=== PATIENT | female | born 1965 | race Caucasian/White ===

== ENCOUNTER 2023-04-25 09:12 | Outpatient (OUT) | payer OTHER, SELFPAY ==
[2023-04-25 10:09] LABS: Basophils Absolute Auto 0.1 10^3/uL (0.0-0.1); Basophils Percent Auto 1.1 % (0.2-2.0); Eosinophils Absolute Auto 0.5 10^3/uL (0.0-0.7); Eosinophils Percent Auto 5.6 % (0.9-7.0); Hematocrit 45.5 % (36.0-48.0); Immature Granulocytes Abs Auto 0.02 10^3/uL (0.00-0.03); Immature Granulocytes Pct Auto 0.2 % (0.0-0.5); Lymphocytes Percent Auto 10.7 % (20.5-60.0); Mean Corpuscular Hemoglobin 28.4 pg (26.7-34.0); Mean Corpuscular Volume 86.2 fL (81.0-99.0); Mean Platelet Volume 10.2 fL (9.5-13.5); Monocytes Absolute Auto 0.7 10^3/uL (0.3-0.8); Monocytes Percent Auto 6.9 % (1.7-12.0); Neutrophils Absolute Auto 7.1 10^3/uL (1.4-6.5); Neutrophils Percent Auto 75.5 % (43.0-75.0); Platelet Count 189 10^3/uL (150-450); Red Blood Count 5.28 10^6/uL (4.20-5.40); Red Cell Distribution Width 12.5 % (11.0-15.0); White Blood Count 9.4 10^3/uL (4.0-11.0)
[2023-04-25 10:53] LABS: Estimated Average Glucose 114 mg/dL; Glycohemoglobin A1C 5.6 % (4.5-6.2)
[2023-04-25 12:24] LABS: Anion Gap 10.3; Carbon Dioxide 28.4 mmol/L (21.0-32.0); Chloride 104 mmol/L (98-107); Estimated GFR (African America >60 (>=60); Glucose 94 mg/dL (74-106); Potassium 3.7 mmol/L (3.5-5.1); Sodium 139 mmol/L (136-145)
[2023-04-25 12:25] LABS: Alanine Aminotransferase 33 U/L (14-59); Albumin Level 3.9 g/dL (3.4-5.0); Alkaline Phosphatase 77 U/L (46-116); Aspartate Amino Transferase 21 U/L (15-37); BUN Creatinine Ratio 27.2; Bilirubin Total 0.9 mg/dL (0.2-1.0); Calcium 9.8 mg/dL (8.5-10.1); Chol HDL Ratio 3.3; Cholesterol 236 mg/dL (<=200); Estimated GFR (Non-African Ame >60 (>=60); Free T3 3.21 pg/mL (2.18-3.98); Globulin 3.8 g/dL; HDL Cholesterol 71 mg/dL (40-60); Thyroid Stimulating Hormone 0.784 uIU/mL (0.358-3.740); Total Protein 7.7 g/dL (6.4-8.2); Triglycerides 94 mg/dL (<=150); VLDL CHOLESTEROL 18.8 mg/dL
[2023-04-26 11:47] LABS: Occult Blood Negative
[2023-04-27 14:08] LABS: Insulin 11.6 uIU/mL (2.6-24.9)
== END 2023-04-25 09:13 | disposition home or self-care (01) ==
LOC: LAB 09:18
PROVIDERS: PCP Family Medicine; Visit Provider Family Medicine
DX: Z00.00 Encounter for general adult medical examination without abnormal findings (principal); E78.5 Hyperlipidemia, unspecified; R73.09 Other abnormal glucose; Z12.12 Encounter for screening for malignant neoplasm of rectum
CPT/HCPCS: 36415; 80053; 80061; 83036; 83525; 84436; 84443; 84481; 85025; G0328

== ENCOUNTER 2023-05-02 11:14 | Outpatient (OUT) | payer OTHER, SELFPAY ==
--- OUTSIDE RECORDS SUMMARY | 2023-05-02 11:17 | XMS_ITS | CCD ---
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 she cannot bear it. Plan: Oxycodone 5mg q6h. Lidocaine patch. Dilaudid PRN? DVT (deep venous thrombosis) 12/23/201302/2016 Overview: DVT present in the right arm involving the: 12/04 : basilic and right axillary vein. 12/22 scan: complete occlusion of the brachial vein. Pain and swelling improving Plan: Per neurosurgery rec, okay to anticoagulate. Will need anticoagulation for 3 months. Coumadin at 5 currently. INR therapeutic. Anxious appearance 12/23/2013 11/30/2015 Cerebral aneurysm 12/23/2013 11/30/2015 Overview: balloon assisted Acomm coiling 10/13 Lipoma 12/23/2013 11/30/2015 Overview: Assesment : Lipoma present on the right shoulder. [place] sized last year and has grown to the size of a lemon. Not tender. Unable to assess if mobile or not due to pain and tenderness. Plan: Will follow up for biopsy at a later date. SAH (subarachnoid hemorrhage) 12/23/2013 Overview: OSH records: Multiple small SAH noted along the R high cortical region scattered along Sylvian Cistern and prepontine cistern. Dilantin 1g was given as a loading dose f/b 100mg bid. Plan: CT brain at [facility] - no acute bleed Awaiting OSH records Acute thrombosis of right axillary vein 12/24/19 14 11/30/2015 Acute thrombosis of right brachial vein 12/24/19 14 11/30/2015 documented as of this encounter (statuses as of 08/24/2021) [facility] Evaluation note Note Date & Type Note Facility Evaluation note Diagnosis Status post reverse arthroplasty of right shoulder- Primary Rotator cuff tendinitis, left Impingement syndrome of left shoulder Other affections of shoulder region, not elsewhere classified documented in this encounter [facility] Advance Directives No Advanced Directives Records FoundDocuments on File Type Date 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 Advance Directive(s) 11/16/2015 9:27 AM Summary Purpose Family History No Family History Records FoundNo Family History Records Found Additional Source Comments Source Comments (unrecognize d section and content) In the event this informatio n is protected by the Federal Confidentiality of Alcohol and Drug Abuse Patient Records regulations: The Federal rules restrict any use of the information to criminally investigate or prosecute any alcohol or drug abuse patient.[facility] Reason for Visit (unrecogniz ed section and content) Reason Comments Established Patient Follow Up Care Teams (unrecognized sec tion and content) Motor 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 This clinical summary was aggregated from multiple sources. Caution should be exercised in using it in the provision of clinical care. This summary normalizes information from multiple sources, and as a consequence, information in this document may materially change the coding, format and clinical context of patient data. In addition, data may be omitted in some cases. CLINICAL DECISIONS SHOULD BE BASED ON THE PRIMARY CLINICAL RECORDS. [facility] [employer] [facility]. provides no warranty or guarantee of the accuracy or completeness of information in this document.
--- NOTE | 2023-05-02 11:50 | MM_ITS ---
Patient Name: JEVON ONEL MR#: [id number] : 1965 Exam Date: 05/02/2023 Ordering Doctor: DR Roberto Hess . RADIOLOGY REPORT PROCEDURE: MM TOMOSYNTHESIS SCREENING BI COMPARISON: MAMMO SCREEN DIG ERICA, 08/23/2010. MAMMO LT UNI DIG, 08/27/2010. MAMMO LT UNI DIG, 04/10/2011. INDICATIONS: Screening Calculator Name NCI Breast Cancer Risk Assessment Tool 5 Year Breast Cancer Risk 1.40% Lifetime Breast Cancer Risk 7.40% Personal Breast Cancer No Personal Ovarian Cancer No Treatments None Family Cancers None LOCATION: [facility] BREAST COMPOSITION: Heterogeneously dense,which may obscure small masses. FINDINGS: DIAGNOSTIC CATEGORY 0--INCOMPLETE: NEED ADDITIONAL IMAGING EVALUATION. Interval reduction in breast density, likely age related change. RIGHT BREAST: Single round 6 mm nodule upper outer quadrant, anterior to mid breast. Spot imaging and ultrasound follow-up recommended. LEFT BREAST: 2 micro clip markers upper-outer quadrant, stable. Lobular nodule associated with 1 clip measuring 1.4 x 1.1 cm, this appears increased from the prior exam. Additional nodule lower inner quadrant measuring 1.2 x 0.9 cm, anterior breast. Spot compression and ultrasound of both nodules is recommended. RECOMMENDATIONS: ADDITIONAL MAMMOGRAPHIC VIEWS REQUIRED: BILATERAL BREASTS - spot compression of suspicious non ULTRASOUND: BILATERAL BREASTS PLEASE NOTE: A NORMAL MAMMOGRAM DOES NOT EXCLUDE THE POSSIBILITY OF BREAST CANCER. A CLINICALLY SUSPICIOUS PALPABLE LUMP SHOULD BE BIOPSIED. Dictated by: Dillan Brito MD on 05/02/2023 at 12:20 Approved by: Dillan Brito MD on 05/02/2023 at 12:24
== END 2023-05-02 11:15 | disposition home or self-care (01) ==
LOC: MAMMO 11:14
PROVIDERS: PCP Family Medicine; Visit Provider Family Medicine
DX: Z12.31 Encounter for screening mammogram for malignant neoplasm of breast (principal); N63.11 Unspecified lump in the right breast, upper outer quadrant; N63.24 Unspecified lump in the left breast, lower inner quadrant
CPT/HCPCS: 77063; 77067

== ENCOUNTER 2023-05-16 07:48 | Outpatient (OUT) | payer OTHER, SELFPAY ==
--- NOTE | 2023-05-16 07:51 | US_ITS ---
Patient Name: JEVON NOEL MR#: [id number] : 1965 Exam Date: 05/16/2023 Ordering Doctor: DR Roberto Hess . RADIOLOGY REPORT PROCEDURE: MM DIAGNOSTIC MAMMO BI, 05/16/2023, 07:52 US BREAST BI LIMITED, 05/16/2023, 08:08 COMPARISON: MM TOMOSYNTHESIS SCREENING BI, 05/02/2023. INDICATIONS: Abnormal Mammogram Calculator Name NCI Breast Cancer Risk Assessment Tool 5 Year Breast Cancer Risk 1.40% Lifetime Breast Cancer Risk 7.40% Personal Breast Cancer No Personal Ovarian Cancer No Treatments None Family Cancers None LOCATION: [facility] BREAST COMPOSITION: Heterogeneously dense,which may obscure small masses. FINDINGS: DIAGNOSTIC CATEGORY 3--PROBABLY BENIGN FINDING. THE FOLLOWING FINDING(S) HAS A HIGH PROBABILITY OF A BENIGN ETIOLOGY: Spot compression views demonstrate 3 persistent nodules 1 in the upper outer quadrant of the right breast 1 in the upper outer quadrant breast a 3rd the lower outer quadrant of the left breast. Ultrasound demonstrates in the right breast a septated cyst measuring 7.6 x 6.3 x 3.2 mm at the 9 o'clock position. In the left breast at the 2 o'clock position is a cluster hypo echogenic lesions in total measuring 1.1 x 0.6 cm. A cluster of complex cysts are favored. In the 6 o'clock position of the left breast is a focal area of hypo echogenicity with smooth borders measuring 7.4 x 3.8 x 7.9 mm. Complex cyst is favored. As these lesions are new from the prior exam. Short interval follow-up is recommended with repeat diagnostic mammogram and ultrasound in 6 months RECOMMENDATIONS: SHORT TERM FOLLOW-UP DIAGNOSTIC MAMMOGRAM BILATERAL BREASTS IN 6 MONTHS. SHORT TERM FOLLOW-UP ULTRASOUND BILATERAL BREASTS IN 6 MONTHS. PLEASE NOTE: A NORMAL MAMMOGRAM DOES NOT EXCLUDE THE POSSIBILITY OF BREAST CANCER. A CLINICALLY SUSPICIOUS PALPABLE LUMP SHOULD BE BIOPSIED. Dictated by: Dillan Briot MD on 05/16/2023 at 08:36 Approved by: Dillan Brito MD on 05/16/2023 at 08:40
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
--- NOTE | 2023-05-16 08:10 | MM_ITS ---
Patient Name: JEVON NOEL MR#: [id number] : 1965 Exam Date: 05/16/2023 Ordering Doctor: DR Roberto Hess . RADIOLOGY REPORT PROCEDURE: MM DIAGNOSTIC MAMMO BI, 05/16/2023, 07:52 US BREAST BI LIMITED, 05/16/2023, 08:08 COMPARISON: MM TOMOSYNTHESIS SCREENING BI, 05/02/2023. INDICATIONS: Abnormal Mammogram Calculator Name NCI Breast Cancer Risk Assessment Tool 5 Year Breast Cancer Risk 1.40% Lifetime Breast Cancer Risk 7.40% Personal Breast Cancer No Personal Ovarian Cancer No Treatments None Family Cancers None LOCATION: [facility] BREAST COMPOSITION: Heterogeneously dense,which may obscure small masses. FINDINGS: DIAGNOSTIC CATEGORY 3--PROBABLY BENIGN FINDING. THE FOLLOWING FINDING(S) HAS A HIGH PROBABILITY OF A BENIGN ETIOLOGY: Spot compression views demonstrate 3 persistent nodules 1 in the upper outer quadrant of the right breast 1 in the upper outer quadrant breast a 3rd the lower outer quadrant of the left breast. Ultrasound demonstrates in the right breast a septated cyst measuring 7.6 x 6.3 x 3.2 mm at the 9 o'clock position. In the left breast at the 2 o'clock position is a cluster hypo echogenic lesions in total measuring 1.1 x 0.6 cm. A cluster of complex cysts are favored. In the 6 o'clock position of the left breast is a focal area of hypo echogenicity with smooth borders measuring 7.4 x 3.8 x 7.9 mm. Complex cyst is favored. As these lesions are new from the prior exam. Short interval follow-up is recommended with repeat diagnostic mammogram and ultrasound in 6 months RECOMMENDATIONS: SHORT TERM FOLLOW-UP DIAGNOSTIC MAMMOGRAM BILATERAL BREASTS IN 6 MONTHS. SHORT TERM FOLLOW-UP ULTRASOUND BILATERAL BREASTS IN 6 MONTHS. PLEASE NOTE: A NORMAL MAMMOGRAM DOES NOT EXCLUDE THE POSSIBILITY OF BREAST CANCER. A CLINICALLY SUSPICIOUS PALPABLE LUMP SHOULD BE BIOPSIED. Dictated by: Dillan Brito MD on 05/16/2023 at 08:36 Approved by: Dillan Brito MD on 05/16/2023 at 08:40
== END 2023-05-16 07:49 | disposition home or self-care (01) ==
LOC: MAMMO 07:49
PROVIDERS: PCP Family Medicine; Visit Provider Family Medicine
DX: R92.8 Other abnormal and inconclusive findings on diagnostic imaging of breast (principal); N60.01 Solitary cyst of right breast; N63.11 Unspecified lump in the right breast, upper outer quadrant; N63.23 Unspecified lump in the left breast, lower outer quadrant; N64.9 Disorder of breast, unspecified
CPT/HCPCS: 76642; 77066

== ENCOUNTER 2023-07-10 16:52 | Outpatient (OUT) | payer OTHER, SELFPAY ==
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
--- NOTE | 2023-07-10 17:00 | US_ITS ---
The [place] [id number] Patient Name: JEVON NOEL MRN: [id number] date: 1965 Sex: F Assigned Patient Location: [facility] Current Patient Location: Accession/Order Number: [id number] Exam Date: 07/10/2023 17:36 Report Date: 07/11/2023 06:33 At the request of: DONNA ROSARIO Procedure: US venous doppler UE RT EXAMINATION: US venous doppler UE RT HISTORY: Cellulitis , right arm swelling COMPARISON: No relevant comparison available. FINDINGS: REGION: Right upper extremity THROMBI: None. COMPRESSIBILITY: Normal compressibility. FLOW: Normal waveform and antegrade flow between 5 and 20 cm/s. OTHER: None. US/US venous doppler UE RT IMPRESSION: 1. No deep vein thrombus within the right upper extremity. Electronically authenticated by: ALEX VARGAS Date: 07/11/2023 06:33
== END 2023-07-10 16:53 | disposition home or self-care (01) ==
PROVIDERS: PCP Family Medicine; Visit Provider Family Medicine
DX: L03.90 Cellulitis, unspecified (principal)
CPT/HCPCS: 93971

== ENCOUNTER 2023-07-29 08:07 | Day surgery (SDC) | payer OTHER, SELFPAY ==
--- NOTE | 2023-07-29 08:13 | MM_ITS ---
Patient Name: JEVON NOEL MR#: [id number] : 1965 Exam Date: 07/29/2023 Ordering Doctor: DR Roberto Hess . This report includes an Addendum and supersedes previous reports for this exam. RADIOLOGY REPORT PROCEDURE: MM POST BIOPSY LT COMPARISON: MM TOMOSYNTHESIS SCREENING BI, 05/02/2023. MM DIAGNOSTIC MAMMO BI, 05/16/2023. INDICATIONS: Left Breast Mass BREAST COMPOSITION: Heterogeneously dense,which may obscure small masses. FINDINGS: BIOPSY MARKER: A metallic spring shaped marker has been placed in the targeted location within the retroareolar left. This is adjacent to a targeted mass BREAST FINDINGS: Postprocedural subcutaneous air Dictated by: Dillan Brito MD on 07/29/2023 at 14:32 Approved by: Dillan Brito MD on 07/29/2023 at 14:35 ADDENDUM: DIAGNOSTIC CATEGORY 2--BENIGN FINDING: FINDINGS: Final diagnosis is benign fibroadenoma. No evidence of malignancy. No further evaluation is required RECOMMENDATIONS: ROUTINE MAMMOGRAM AND CLINICAL EVALUATION IN 12 MONTHS. Dictated by: Dillan Brito MD on 08/06/2023 at 07:45 Approved by: Dillan Brito MD on 08/06/2023 at 07:49
--- NOTE | 2023-07-29 08:13 | US_ITS ---
[address] [address] Patient Name: JEVON NOEL MRN: [id number] date: 1965 Sex: F Assigned Patient Location: US Current Patient Location: [place] Accession/Order Number: [id number] Exam Date: 07/29/2023 08:30 Report Date: 07/29/2023 09:44 At the request of: DONNA ROSARIO Procedure: US breast vac bx w/ clip LT EXAMINATION: US breast vac bx w/ clip LT HISTORY: Left Breast Mass COMPARISON: No relevant comparison available. TECHNIQUE: After obtaining informed consent, ultrasound-guided fine needle aspiration was performed in the usual sterile manner. FINDINGS: IMAGING: Ultrasound. BIOPSY NEEDLE: 13 gauge mammotome LOCATION: 6:00 left breast SPECIMEN TYPE: 5 core samples LOCAL ANESTHETIC: 2 cc 1% Buffered lidocaine superficial, 5 cc 1% lidocaine with epinephrine deep. COMPLICATIONS: None. LABORATORY: Prepared slide smears and washings for cell block evaluation. OTHER: Negative. PATHOLOGY: Pending. An addendum will be added when results are available. US/US breast vac bx w/ clip LT IMPRESSION: 1. Uneventful ultrasound guided core needle biopsy. 2. Pathology results are pending. Electronically authenticated by: OFELIA MARTINEZ Date: 07/29/2023 09:44
[2023-07-29 08:25] VITALS: BP 178/88; PULSE 82; O2SAT 96
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
[2023-07-29] MEDS: LIDOCAINE HCL 10 ML, SODIUM BICARBONATE 1 MEQ INJ (09:00)
[2023-07-29] MEDS: LIDOCAINE HCL/EPINEPHRINE 10 ML, SODIUM BICARBONATE 1 MEQ INJ (09:00)
--- NOTE | 2023-07-29 09:49 | SUR.PREOP ---
07/23/23 Pt instructed on procedure, date, time, and prep. Pt made aware to hold ASA x 5 days prior to biopsy.
== END 2023-07-29 09:30 | disposition home or self-care (01) ==
LOC: US 08:07
PROVIDERS: Radiology Diagnostic Radiology; PCP Family Medicine; Visit Provider Family Medicine
DX: D24.2 Benign neoplasm of left breast (principal)
CPT/HCPCS: 19083; 77065; 88305; 99999

== ENCOUNTER 2024-06-04 08:27 | Outpatient (OUT) | payer OTHER, SELFPAY ==
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
[2024-06-04 09:06] LABS: Basophils Absolute Auto 0.1 10^3/uL (0.0-0.1); Basophils Percent Auto 2.4 % (0.2-2.0); Eosinophils Absolute Auto 0.4 10^3/uL (0.0-0.7); Eosinophils Percent Auto 10.9 % (0.9-7.0); Hematocrit 45.1 % (36.0-48.0); Hemoglobin 15.4 g/dL (12.0-16.0); Immature Granulocytes Abs Auto 0.02 10^3/uL (0.00-0.03); Immature Granulocytes Pct Auto 0.5 % (0.0-0.5); Lymphocytes Absolute Auto 1.1 10^3/uL (1.2-3.8); Lymphocytes Percent Auto 29.7 % (20.5-60.0); Mean Corpuscular HGB Conc 34.1 g/dL (29.9-35.2); Mean Corpuscular Hemoglobin 29.2 pg (26.7-34.0); Mean Corpuscular Volume 85.4 fL (81.0-99.0); Mean Platelet Volume 9.2 fL (9.5-13.5); Monocytes Absolute Auto 0.3 10^3/uL (0.3-0.8); Neutrophils Absolute Auto 1.8 10^3/uL (1.4-6.5); Neutrophils Percent Auto 48.5 % (43.0-75.0); Platelet Count 209 10^3/uL (150-450); Red Blood Count 5.28 10^6/uL (4.20-5.40); Red Cell Distribution Width 12.2 % (11.0-15.0); White Blood Count 3.8 10^3/uL (4.0-11.0)
[2024-06-04 09:20] LABS: Estimated Average Glucose 108 mg/dL; Glycohemoglobin A1C 5.4 % (4.5-6.2)
[2024-06-04 09:38] LABS: Alanine Aminotransferase 27 U/L (14-59); Albumin Globulin Ratio 1.2; Albumin Level 3.8 g/dL (3.4-5.0); Alkaline Phosphatase 73 U/L (46-116); Anion Gap 10.5; Aspartate Amino Transferase 21 U/L (15-37); BUN Creatinine Ratio 32.6; Bilirubin Total 0.9 mg/dL (0.2-1.0); Calcium 9.2 mg/dL (8.5-10.1); Carbon Dioxide 31.2 mmol/L (21.0-32.0); Chloride 107 mmol/L (98-107); Chol HDL Ratio 3.6; Cholesterol 229 mg/dL (<=200); Estimated GFR (African America >60 (>=60 mL/min/1.73m^2); Estimated GFR (Non-African Ame >60 (>=60 mL/min/1.73m^2); Free T3 3.26 pg/mL (2.18-3.98); Globulin 3.1 g/dL; Glucose 85 mg/dL (74-106); HDL Cholesterol 63 mg/dL (40-60); Potassium 3.7 mmol/L (3.5-5.1); Sodium 145 mmol/L (136-145); Thyroid Stimulating Hormone 0.676 uIU/mL (0.358-3.740); Total Protein 6.9 g/dL (6.4-8.2); Triglycerides 88 mg/dL (<=150); VLDL CHOLESTEROL 17.6 mg/dL
[2024-06-04 13:59] LABS: Internal Control Within Normal Limits; Occult Blood Negative
[2024-06-05 03:11] LABS: Insulin 7.4 uIU/mL (2.6-24.9)
== END 2024-06-04 08:28 | disposition home or self-care (01) ==
LOC: LAB 08:28
PROVIDERS: PCP Family Medicine; Visit Provider Family Medicine
DX: R73.09 Other abnormal glucose (principal); I10 Essential (primary) hypertension; Z12.12 Encounter for screening for malignant neoplasm of rectum; D64.9 Anemia, unspecified; E55.9 Vitamin D deficiency, unspecified
CPT/HCPCS: 36415; 80053; 80061; 82306; 83036; 83525; 83540; 84436; 84443; 84481; 85025; G0328

== ENCOUNTER 2024-06-18 08:10 | Outpatient (OUT) | payer OTHER, SELFPAY ==
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
[2024-06-18 08:55] LABS: C Reactive Protein <0.50 mg/dL (<=0.50); Uric Acid 3.2 mg/dL (2.6-6.0)
[2024-06-19 06:07] LABS: Rheumatoid Factor (RF) <10.0 IU/mL (<14.0)
[2024-06-21 14:08] LABS: Lupus Reflex Interpretation Comment: (.)
[2024-06-22 14:08] LABS: Antinuclear Antibodies, IFA Negative (.)
== END 2024-06-18 08:11 | disposition home or self-care (01) ==
LOC: LAB 08:11
PROVIDERS: PCP Family Medicine; Visit Provider Family Medicine
DX: D72.9 Disorder of white blood cells, unspecified (principal)
CPT/HCPCS: 36415; 84550; 86038; 86060; 86140; 86431

== ENCOUNTER 2024-06-28 19:51 | Outpatient (OUT) | payer OTHER, SELFPAY ==
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
== END 2024-06-28 19:52 | disposition home or self-care (01) ==
LOC: SLEEP 19:51
PROVIDERS: PCP Family Medicine; Visit Provider Family Medicine
DX: G47.33 Obstructive sleep apnea (adult) (pediatric) (principal); F51.01 Primary insomnia
CPT/HCPCS: 95810

== ENCOUNTER 2024-07-20 08:41 | Outpatient (OUT) | payer OTHER, SELFPAY ==
--- NOTE | 2024-07-20 07:55 | NM_ITS ---
Patient Name: JEVON NOEL MR#: [id number] : 1965 Exam Date: 07/20/2024 Ordering Doctor: DR Roberto Hess . RADIOLOGY REPORT PROCEDURE: NM RONNA PERF SPECT REST STR COMPARISON: None. INDICATIONS: CHEST PAIN, SHORTNESS OF BREATH, HYPERTENSION TECHNIQUE: Exam Description: Stress/Rest two day protocol gated SPECT Rest Imaging: mCi Tc-99m Cardiolite IV on 07/19/2024 Stress Imaging 25.9 mCi Tc-99m Cardiolite IV on 07/22/2024 Exercise Protocol: 0.4 mg Lexiscan given IV Heart Rate (bpm): Rest: 78 Max: 106 PMHR: 66 Blood Pressure: Rest: 158/100 Max: 180/110 Symptoms: Rest and peak stress ECG findings were pending and the exercise portion of the study was pending per attending physician [facility] . For more details please see separate cardiac stress test report. FINDINGS: QUALITY OF STUDY: Good PERFUSION DEFECT: None LOCATION: SIZE: SEVERITY: TYPE: WALL MOTION: Normal LV SIZE: 63 mL. TID / TCD: 0.9 LVEF: Calculated EF 77%. SUMMARY: Normal Myocardial perfusion imaging study CONCLUSION: Normal myocardial perfusion images without ischemia or infarct Normal LV systolic function, EF 77% No TID, TID 0.9 EKG stress test is reported seperately Dictated by: Alejandro Solomon MD on 07/22/2024 at 12:59 Approved by: Alejandro Solomon MD on 07/22/2024 at 13:06
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
== END 2024-07-20 08:42 | disposition home or self-care (01) ==
LOC: NM 08:41
PROVIDERS: PCP Family Medicine; Visit Provider Family Medicine
DX: R07.9 Chest pain, unspecified (principal); I10 Essential (primary) hypertension
CPT/HCPCS: 78452; A9500

== ENCOUNTER 2024-07-22 07:18 | Outpatient (OUT) | payer OTHER, SELFPAY ==
--- NOTE | 2024-07-22 | PCN_ITS ---
CARDIAC STRESS TEST Requesting Physician: Roberto Hess M.D. Procedure Date: 07/22/2024 INDICATION FOR THE TEST: Shortness of breath. Resting 12-lead EKG showed normal sinus rhythm, heart rate 77 beats per minute, normal EKG. Resting blood pressure 158/100 mm/Hg. The patient was injected with Lexiscan 0.4 mg IV and she was monitored for a few minutes. Max heart rate 106 beats per minute, representing 56% of age predicted maximum heart rate and peak blood pressure 180/110 mm/Hg. EKG during stress test did not show significant T or ST changes or any arrhythmias. Patient did not have any symptoms throughout the test. CONCLUSION: 1. Negative Lexiscan EKG stress test for ischemia. 2. The nuclear perfusion images result will be reported separately. [facility]
[2024-07-22] MEDS: REGADENOSON 0.4 MG/5 ML SYRINGE IV (07:33)
--- NOTE | 2024-07-22 07:52 | PC.NURSE ---
Nursing Note Cardiac Stress Test Reviewed: Medication, allergies and patient history reviewed. Stress Test: [ x] Patient tolerated stress test well. [ ] Patient unable to tolerate walking on treadmill. Switched to Lexiscan stress test. [x ] No chest pain noted per patient [ ] Chest pain that resolved prior to leaving stress lab. [x ] No dyspnea noted. [ ] Dyspnea that resolved prior to leaving stress lab. [ x] Patient left stress lab asymptomatic and hemodynamically stable. [ ] Patient taken to the Emergency Room due to non-resolving symptoms following stress test. [ ] Patient achieved target heart rate. [ ] Patient unable to achieve target heart rate. [ ] Aminophylline administered as reversal agent to Lexiscan (Regadenoson). [ ] Nitro administered. Nursing Comments:
== END 2024-07-22 07:19 | disposition home or self-care (01) ==
LOC: CARD 07:19
PROVIDERS: PCP Family Medicine; Visit Provider Family Medicine
DX: R07.9 Chest pain, unspecified (principal); I10 Essential (primary) hypertension
CPT/HCPCS: 93017; J2785

== ENCOUNTER 2024-08-13 07:09 | Outpatient (OUT) | payer OTHER, SELFPAY ==
[2024-08-13 08:45] LABS: Anion Gap 11.2; BUN Creatinine Ratio 36.3; Carbon Dioxide 28.8 mmol/L (21.0-32.0); Chloride 109 mmol/L (98-107); Estimated GFR (African America >60 (>=60 mL/min/1.73m^2); Estimated GFR (Non-African Ame >60 (>=60 mL/min/1.73m^2); Glucose 115 mg/dL (74-106); Sodium 145 mmol/L (136-145)
== END 2024-08-13 07:10 | disposition home or self-care (01) ==
LOC: LAB 07:11
PROVIDERS: PCP Family Medicine; Visit Provider Internal Medicine Interventional Cardiology
DX: I10 Essential (primary) hypertension (principal)
CPT/HCPCS: 36415; 80048

== ENCOUNTER 2024-08-20 08:03 | Outpatient (OUT) | payer OTHER, SELFPAY ==
--- NOTE | 2024-08-20 08:30 | CA_ITS ---
Patient Name: JEVON NOEL MR#: [id number] : 1965 Exam Date: 08/20/2024 Ordering Doctor: DR AVA JOHNSON M.D. ECHOCARDIOGRAM REPORT PROCEDURE: CA ECHO DOPPLER COMPLETE INDICATIONS: Dyspnea on exertion, hypertension COMPARISON: None. DESCRIPTION: COMPLETE ECHOCARDIOGRAM Real-time transthoracic echocardiography with 2D, M-mode, spectral and color flow Doppler performed. QUALITY: Technical quality was good. LEFT VENTRICLE: Normal chamber size. Mild proximal septal hypertrophy (sigmoid septum). Left ventricle systolic function without wall motion abnormalities LV EF: Normal left ventricular ejection fraction 65% DIASTOLIC: Normal diastolic function. ATRIAL SEPTUM: Visually appears intact. LEFT ATRIUM: Normal chamber size. RIGHT ATRIUM: Normal chamber size. RIGHT VENTRICLE: Normal chamber size. Normal right ventricular systolic function. TRICUSPID VALVE: Normal mobility and thickness. No stenosis with trivial regurgitation. Doppler studies reveal mildly (35-45) elevated right sided pressures.RVSP 38 mmHg MITRAL VALVE: Normal mobility and thickness. No evidence of mitral valve stenosis. There is no mitral annular calcification. Trivial mitral regurgitation. AORTIC VALVE: Normal trileaflet appearance. No visible sclerosis. Normal leaflet mobility. No evidence of aortic valve stenosis. No aortic regurgitation. AORTIC ROOT: Normal diameter and appearance. Ascending aorta is normal in size. PULMONIC VALVE: Not well visualized. No stenosis. No regurgitation. PERICARDIUM: No evidence of pericardial effusion. IVC: IVC is dilated ,2.5 cm, collapses greater than 50% with sniff. RAP 8 mmHg PLEURA: CONCLUSION: Mild proximal septal hypertrophy Normal left ventricle systolic function without wall motion abnormalities, ejection fraction 65% Normal left ventricle diastolic function Normal right ventricle size and systolic function Mild pulmonary hypertension, RVSP 38 mmHg No significant valvular abnormalities Adult Echocardiography Procedure Report Left Ventricle LVEDD (3.7 - 5.6 cm): 3.61 cm LVESD (2.2 - 4.0 cm): 2.54 cm LVIVS thickness (0.6 - 1.2 cm): 1.28 cm LVPW thickness (0.5 - 1.0 cm): 0.83 cm e': 0.09 m/s E - e': 7.72 LVOT Max Gradient: 2.80 mm[Hg] LVOT Area (cm2): 0.84 m/s Peak Velocity (LVOT): 0.84 m/s Mean Velocity (LVOT): 0.54 m/s LVOT Diameter 2.02 cm Left Ventricular Ejection Fraction: Left Atrium LA Volume Index (2D A2C): 27.19 ml/m2 Left Atrium Systolic Dimension: 3.49 cm Mitral Valve MV E to A Ratio: 0.91 MV Max Gradient: MV Mean Gradient: Mitral Valve A-Wave Peak Velocity: 0.75 m/s Mitral Valve E-Wave Peak Velocity: 0.68 m/s Cardiovascular Orifice Area: Right Ventricle RV Internal Diastolic Dimension: Aorta AO Root Diam: 2.92 cm Ascending Ao Diam: 2.69 cm Aortic Valve AoV Area (Peak Geovanny): 2.16 cm2, 2.16 cm2 AoV Area (VTI): 2.13 cm2, 2.13 cm2 Deceleration [place]: Pressure Half-Time: Peak Velocity(Antegrade Flow): 1.24 m/s Peak Gradient(Antegrade Flow): 6.15 mm[Hg] Mean Velocity(Antegrade Flow): 0.84 m/s Mean Gradient(Antegrade Flow): 3.18 mm[Hg] Velocity Time Integral: 28.62 cm Tricuspid Valve Peak Velocity (Regurgitant Flow): 2.73 m/s Peak Velocity: Pulmonic Valve Mean Gradient: 1.31 mm[Hg] Mean Velocity: 0.53 m/s Peak Velocity: 0.76 m/s, 0.72 m/s Peak Gradient: 2.08 mm[Hg], 2.34 mm[Hg] Right Atrium Right Atrium Systolic Pressure: 8 mmHg Dictated by: Alejandro Solomon MD on 08/20/2024 at 17:42 Approved by: Alejandro Solomon MD on 08/20/2024 at 17:51
== END 2024-08-20 08:04 | disposition home or self-care (01) ==
LOC: CARD 08:05
PROVIDERS: PCP Family Medicine; Visit Provider Internal Medicine Interventional Cardiology
DX: R06.09 Other forms of dyspnea (principal)
CPT/HCPCS: 93306

== ENCOUNTER 2024-10-29 07:27 | Outpatient (OUT) | payer OTHER, SELFPAY ==
--- OUTSIDE RECORDS SUMMARY | 2024-08-17 11:13 | XMS_ITS ---
Author Organization [facility] in [place] Address [address] [place] [address] Care Team Providers Care Spoilage Worker Name Role Phone Constantnie Hess Primary Care Provider REASON FOR VISIT labs Encounters Encounter Location Date Provider Diagnosis [facility] [address] [facility] [place] [address] 08/17/2024 Constantine Hess Plan Of Treatment No Information Progress Notes * Aleena NOELDOB: [birth year] (59 yo F)Acc No.[id number]:08/17/2024 Patient: Jacqui ELISEOBONITAAleena :1965 A ge:59 Y S ex:Female Address:[address] [facility] [address] * true * Date: Generated for Yenii edni/Faisamarg/eTransmitting on: 0 10/29/2024 07:30 AM EDT
--- OUTSIDE RECORDS SUMMARY | 2024-08-21 13:07 | XMS_ITS ---
Author Organization [facility] in [place] Address [address] [place] [address] Care Team Providers Care Christian Education Director Name Role Phone Constantine Hess Primary Care Provider [phone] REASON FOR VISIT Echo Results Encounters Encounter Location Date Provider Diagnosis [facility] [address] [place] [address] 08/21/2024 Constantine Hess Plan Of Treatment No Information Progress Notes * Aleena NOELDOB: [birth year] (59 yo F)Acc No.[id number]:08/21/2024 Patient: Jacqui Aleena GARCIA :1965 A ge:59 Y S ex:Female Address:[address] [place], [address] * true * Date: Generated for Yenii edin/Rosamaria/eTransmitting on: 0 10/29/2024 07:30 AM EDT
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
--- OUTSIDE RECORDS SUMMARY | 2024-10-29 07:30 | XMS_ITS | Encounter Summary ---
Author Organization [facility] Address [address] [place] [address] Care Team Providers Care Foreign Clerk Name Role Phone Roberto Hess MD Primary Care Provider [phone] Source Comments In the event this information is protected by the Federal Confidentiality of Alcohol and Drug AbusePatient Records regulations: The Federal rules restrict any use of the information to criminally investigate or prosecute any alcohol or drug abuse patient.[facility] Encounter Details Date Type Department Care Team (Late st Contact Info) Description 11/10/2015 Patient Msg Medical Records [address] [place] [address] Provider, [facility] Procedure Social History Tobacco Use Types Packs/Day Years Used Date Smoking Tobacco: Never Smokeless Tobacco: Never Alcohol Use Standard Drinks/Week Comments No 0 (1 standard drink = 0.6 oz pur e alcohol) occasional Comments No Sex and Gender Information Value Date Recorded Sex Assigned at Female 09/05/2018 10:22 PM EDT Legal Sex Female 8:29 PM EDT Gender Identity Female 09/05/2018 10:22 PM EDT Sexual Orientation Straight 09/05/2018 10 :22 PM EDT documented as of this encounter Functional Status * Are you deaf or do you have serious difficulty hearing? Answer Date of Assessment Author No 10/14/2014 9:00 AM Jaime Weller APRN.PORTFOLIO ARCHITECT * Are you blind or do you have serious difficulty seeing, even when wearing glasses? Answer Date of Assessment Author No 10/14/2014 9:00 AM Jaime Weller APRN.PORTFOLIO ARCHITECT * Do you have serious difficulty walking or climbing stairs? Answer Date of Assessment Author No 10/14/2014 9:00 AM Jaime Weller APRN.PORTFOLIO ARCHITECT * Do you have difficulty dressing or bathing? Answer Date of Assessment Author No 10/14/2014 9:00 AM Jaime Weller APRN.PORTFOLIO ARCHITECT * Because of a physical, mental, or emotional condition, do you have difficulty doing errands alone such as visiting a doctor's office or shopping? Answer Date of Assessment Author No 10/14/2014 9:00 AM Jaime Weller APRN.PORTFOLIO ARCHITECT documented as of this encounter Mental Status * Because of a physical, mental, or emotional condition, do you have serious difficulty concentrating, remembering, or making decisions? Answer Entry Date Author No 10/14/2014 9:00 AM Jaime Weller APRN.PORTFOLIO ARCHITECT documented in this encounter Plan of Treatment Not on file documented as of this encounter Visit Diagnoses Not on filedocumented in this encounter Care Teams Foreign Clerk Relationship Specialty Start Date End Date Roberto Hess MD [address] [place] [address] PCP - General 12/23/13 documented as of this encounter
--- OUTSIDE RECORDS SUMMARY | 2024-10-29 07:30 | XMS_ITS | Encounter Summary ---
Author Organization [facility] Address [address] [place] [address] Care Team Providers Care Pediatric Care Coordinator Name Role Phone Roberto Hess MD Primary Care Provider [phone] Source Comments In the event this information is protected by the Federal Confidentiality of Alcohol and Drug AbusePatient Records regulations: The Federal rules restrict any use of the information to criminally investigate or prosecute any alcohol or drug abuse patient.[facility] Encounter Details Date Type Department Care Team (Late st Contact Info) Description 12/31/2014 Patient Msg Medical Records [address] [place] [address] Provider, Cc RE: Patient Registration Completed Social History Tobacco Use Types Packs/Day Years [...] Author No 10/14/2014 9:00 AM Jaime Weller APRN.COMPLIANCE MONITOR * Are you blind or do you have serious difficulty seeing, even when wearing glasses? Answer Date of Assessment Author No 10/14/2014 9:00 AM Jaime Weller APRN.COMPLIANCE MONITOR * Do you have serious difficulty walking or climbing stairs? Answer Date of Assessment Author No 10/14/2014 9:00 AM Jaime Weller APRN.COMPLIANCE MONITOR * Do you have difficulty dressing or bathing? Answer Date of Assessment Author No 10/14/2014 9:00 AM Jaime Weller APRN.COMPLIANCE MONITOR * Because of a physical, mental, or emotional condition, do you have difficulty doing errands alone such as visiting a doctor's office or shopping? Answer Date of Assessment Author No 10/14/2014 9:00 AM Jaime Weller APRN.COMPLIANCE MONITOR documented as of this encounter Mental Status * Because of a physical, mental, or emotional condition, do you have serious difficulty concentrating, remembering, or making decisions? Answer Entry Date Author No 10/14/2014 9:00 AM Jaime Weller APRN.COMPLIANCE MONITOR documented in this encounter Plan of Treatment Not on file documented as of this encounter Visit Diagnoses Not on filedocumented in this encounter Care Teams Pediatric Care Coordinator Relationship Specialty Start Date End Date Roberto Hess MD [address] [place] [address] PCP - General 12/23/13 documented as of this encounter
--- OUTSIDE RECORDS SUMMARY | 2024-10-29 07:30 | XMS_ITS | Encounter Summary ---
Author Organization [facility] Address [address] [place] [address] Care Team Providers Care Pastrycook'S Assistant Name Role Phone Roberto Hess MD Primary Care Provider [phone] Source Comments In the event this information is protected by the Federal Confidentiality of Alcohol and Drug AbusePatient Records regulations: The Federal rules restrict any use of the information to criminally investigate or prosecute any alcohol or drug abuse patient.[facility] Encounter Details Date Type Department Care Team (Late st Contact Info) Description 11/11/2015 Patient Msg Medical Records [address] [place] [address] Provider, Cc RE: Patient Registration Completed Social [...] Author No 10/14/2014 9:00 AM Jaime Weller APRN.TANK TRUCK ENGINE MECHANIC * Are you blind or do you have serious difficulty seeing, even when wearing glasses? Answer Date of Assessment Author No 10/14/2014 9:00 AM Jaime Weller APRN.TANK TRUCK ENGINE MECHANIC * Do you have serious difficulty walking or climbing stairs? Answer Date of Assessment Author No 10/14/2014 9:00 AM Jaime Weller APRN.TANK TRUCK ENGINE MECHANIC * Do you have difficulty dressing or bathing? Answer Date of Assessment Author No 10/14/2014 9:00 AM Jaime Weller APRN.TANK TRUCK ENGINE MECHANIC * Because of a physical, mental, or emotional condition, do you have difficulty doing errands alone such as visiting a doctor's office or shopping? Answer Date of Assessment Author No 10/14/2014 9:00 AM Jaime Weller APRN.TANK TRUCK ENGINE MECHANIC documented as of this encounter Mental Status * Because of a physical, mental, or emotional condition, do you have serious difficulty concentrating, remembering, or making decisions? Answer Entry Date Author No 10/14/2014 9:00 AM Jaime Weller APRN.TANK TRUCK ENGINE MECHANIC documented in this encounter Plan of Treatment Not on file documented as of this encounter Visit Diagnoses Not on filedocumented in this encounter Care Teams Pastrycook'S Assistant Relationship Specialty Start Date End Date Roberto Hess MD [address] [place] [address] PCP - General 12/23/13 documented as of this encounter
--- OUTSIDE RECORDS SUMMARY | 2024-10-29 07:30 | XMS_ITS | Encounter Summary ---
Author Organization [facility] Address [address] [place] [address] Care Team Providers Care Staff Electrical Engineer Name Role Phone Roberto Hess MD Primary Care Provider [phone] Source Comments In the event this information is protected by the Federal Confidentiality of Alcohol and Drug AbusePatient Records regulations: The Federal rules restrict any use of the information to criminally investigate or prosecute any alcohol or drug abuse patient.[facility] Encounter Details Date Type Department Care Team (Late st Contact Info) Description 11/09/2015 Patient Msg Medical Records [address] [place] [address] Provider, Ccf please do SRINIVAS for prep for surgery Social History Tobacco Use Types Packs/Day Years [...] Author No 10/14/2014 9:00 AM Jaime Weller APRN.SENIOR ANIMAL TRAINER * Are you blind or do you have serious difficulty seeing, even when wearing glasses? Answer Date of Assessment Author No 10/14/2014 9:00 AM Jaime Weller APRN.SENIOR ANIMAL TRAINER * Do you have serious difficulty walking or climbing stairs? Answer Date of Assessment Author No 10/14/2014 9:00 AM Jaime Weller APRN.SENIOR ANIMAL TRAINER * Do you have difficulty dressing or bathing? Answer Date of Assessment Author No 10/14/2014 9:00 AM Jaime Weller APRN.SENIOR ANIMAL TRAINER * Because of a physical, mental, or emotional condition, do you have difficulty doing errands alone such as visiting a doctor's office or shopping? Answer Date of Assessment Author No 10/14/2014 9:00 AM Jaime Weller APRN.SENIOR ANIMAL TRAINER documented as of this encounter Mental Status * Because of a physical, mental, or emotional condition, do you have serious difficulty concentrating, remembering, or making decisions? Answer Entry Date Author No 10/14/2014 9:00 AM Jaime Weller APRN.SENIOR ANIMAL TRAINER documented in this encounter Plan of Treatment Not on file documented as of this encounter Visit Diagnoses Not on filedocumented in this encounter Care Teams Staff Electrical Engineer Relationship Specialty Start Date End Date Roberto Hess MD [address] [place] [address] PCP - General 12/23/13 documented as of this encounter
--- OUTSIDE RECORDS SUMMARY | 2024-10-29 07:30 | XMS_ITS | Clinical Summary ---
Author Organization [facility] Address [address] [place] [address] Care Team Providers Care Maintenance Welder Name Role Phone Roberto Hess MD Primary Care Provider [phone] Allergies Active Allergy Reactions Criticality Noted Date Comments Bacitracin Swelling 11/25/2013 Egg White (Egg Protein) 12/21/2013 Medications phenytoin (DILANTIN) 50 MG tablet Take 2 tablets by mouth 3 times daily for 3 days. 18 tablet 0 4 Active docusate sodium (COLACE) 100 MG capsule Take 1 capsule by mouth 2 times daily. Take while on narcotics. Hold for loose bowel movements 100 capsule 0 4 Active mineral oil-hydrophilic petrolatum (AQUAPHOR) ointment Apply 1 applicator topically as needed for Dry Skin. Apply topically as needed. Active oxyCODONE-aceta minophen (PERCOCET) 5-325 MG per tablet Take 1 tablet by mouth every 4 hours as needed for Pain. Active oxyCODONE (OXYCONTIN) 10 MG CR tablet Take 10 mg by mouth every 12 hours. Active polyethylene glycol (GLYCOLAX) packet Take 17 g by mouth daily as needed. Active predniSONE (DELTASONE) 10 MG tablet Take 10 mg by mouth every other day. Weaning off. Active senna (SENOKOT) 8.6 MG tablet Take 2 tablets by mouth daily. Active white petrolatum GEL Apply topically as needed. Active gabapentin (NEURONTIN) 600 MG tablet Take 600 mg by mouth daily. 12/21/13 Dose pack. Slowly increasing. Active Active Problems Problem Noted Date Diagnosed Date Pubic bone fracture 01/13/2014 Cervical disc herniation 11/27/2013 Overview (11/27/2013): C4-C5 paracentral disc protrusion Contusion of soft tissue 11/27/2013 Aneurysm of anterior communicating artery 2013 Overview (11/26/2013): 5 x 4 mm right anterior communicating artery aneurysm Concussion with brief LOC 11/25/2013 SAH (subarachnoid hemorrhage) 11/25/2013 Fracture of right superior pubic ramus 4 Overview (11/25/2013): Minimally displaced fracture of the right pubic bone adjacent the pubic symphysis. Hypertension 11/25/2013 Abrasion, multiple sites 11/25/2013 Overview (11/25/2013): Including bilateral knees, left ankle, right posterior arm, left temporal region, bilateral hands, right flank, right shoulder Fracture of right inferior pubic ramus 4 Overview (11/25/2013): Displaced fracture of the right inferior pubic ramus. Sacral fracture 11/25/2013 L5 vertebral fracture 11/25/2013 Overview (11/25/2013): Bilateral TP fxs Leukocytosis 11/25/2013 Right acetabular fracture 11/25/2013 Overview (11/25/2013): Nondisplaced fracture through the anterior column of the right acetabulum near the junction of the superior pubic ramus. Resolved Problems Problem Noted Date Diagnosed Date Resolved Date Tachycardia 11/25/2013 11/27/2013 Hyperglycemia 11/25/2013 11/27/2013 Immunizations Immunization Administration Dates Next Due Td, unspecified formulation 11/25/2013 Social History Tobacco Use Types Packs/Day Years Used Date Smoking Tobacco: Never Alcohol Use Standard Drinks/Week Comments Yes 0 (1 standard drink = 0.6 oz pur e alcohol) occasionally Comments No Sex and Gender Information Value Date Recorded Sex Assigned at Not on file Legal Sex Female 6:28 PM EDT Gender Identity Not on file Sexual Orientation Not on file Last Filed Vital Signs Vital Sign Reading Time Taken Comments Blood Pressure 138/75 12/21/2013 11:30 AM EDT Pulse 102 12/21/2013 11:30 AM EDT Temperature 37 C (98.6 F) 12/21/2013 7:34 AM EDT Respiratory Rate 13 12/21/2013 11:30 AM EDT Oxygen Saturation 95% 12/21/2013 10:00 AM EDT Inhaled Oxygen Concentration - - Weight 52.6 kg (116 lb) 12/21/2013 7:34 AM EDT Height 160 cm (5' 3 ) 12/21/2013 7:34 AM EDT Body Mass Index 20.55 12/21/2013 7:34 AM EDT Plan of Treatment Not on file Advance Directives * Full Code (Latest Code Status on File) Date Activated Date Inactivated Comments 12/21/2013 9:09 AM 12/21/2013 2:31 PM * Full Code Date Activated Date Inactivated Comments 12/21/2013 7:09 AM 12/21/2013 9:09 AM * Full Code Date Activated Date Inactivated Comments 11/25/2013 9:53 PM 12/03/2013 9:08 PM Care Teams Maintenance Welder Relationship Specialty Start Date End Date Roberto Hess MD [address] [place] [address] PCP - General 12/15/13
--- OUTSIDE RECORDS SUMMARY | 2024-10-29 07:30 | XMS_ITS | Encounter Summary ---
Author Organization [facility] Address [address] [place] [address] Care Team Providers Care Gas Pump Attendant Name Role Phone Roberto Hess MD Primary Care Provider [phone] Source Comments In the event this information is protected by the Federal Confidentiality of Alcohol and Drug AbusePatient Records regulations: The Federal rules restrict any use of the information to criminally investigate or prosecute any alcohol or drug abuse patient.[facility] Encounter Details Date Type Department Care Team (Late st Contact Info) Description 12/06/2014 Patient Msg Medical Records [address] [place] [address] Provider, [facility] Procedure Social [...] Author No 10/14/2014 9:00 AM Jaime Weller APRN.DIRECTOR DISTRIBUTION * Are you blind or do you have serious difficulty seeing, even when wearing glasses? Answer Date of Assessment Author No 10/14/2014 9:00 AM Jaime Weller APRN.DIRECTOR DISTRIBUTION * Do you have serious difficulty walking or climbing stairs? Answer Date of Assessment Author No 10/14/2014 9:00 AM Jaime Weller APRN.DIRECTOR DISTRIBUTION * Do you have difficulty dressing or bathing? Answer Date of Assessment Author No 10/14/2014 9:00 AM Jaime Weller APRN.DIRECTOR DISTRIBUTION * Because of a physical, mental, or emotional condition, do you have difficulty doing errands alone such as visiting a doctor's office or shopping? Answer Date of Assessment Author No 10/14/2014 9:00 AM Jaime Weller APRN.DIRECTOR DISTRIBUTION documented as of this encounter Mental Status * Because of a physical, mental, or emotional condition, do you have serious difficulty concentrating, remembering, or making decisions? Answer Entry Date Author No 10/14/2014 9:00 AM Jaime Weller APRN.DIRECTOR DISTRIBUTION documented in this encounter Plan of Treatment Not on file documented as of this encounter Visit Diagnoses Not on filedocumented in this encounter Care Teams Gas Pump Attendant Relationship Specialty Start Date End Date Roberto Hess MD [address] [place] [address] PCP - General 12/23/13 documented as of this encounter
--- OUTSIDE RECORDS SUMMARY | 2024-10-29 07:30 | XMS_ITS | Encounter Summary ---
Author Organization [facility] Address [address] [place] [address] Care Team Providers Care Paper Handler Name Role Phone Roberto Hess MD Primary Care Provider [phone] Source Comments In the event this information is protected by the Federal Confidentiality of Alcohol and Drug AbusePatient Records regulations: The Federal rules restrict any use of the information to criminally investigate or prosecute any alcohol or drug abuse patient.[facility] Encounter Details Date Type Department Care Team (Late st Contact Info) Description 12/06/2014 Patient Msg Medical Records [address] [place] [address] Provider, [facility] Procedure Social [...] Author No 10/14/2014 9:00 AM Jaime Weller APRN.MATERIALS SCIENTIST * Are you blind or do you have serious difficulty seeing, even when wearing glasses? Answer Date of Assessment Author No 10/14/2014 9:00 AM Jaime Weller APRN.MATERIALS SCIENTIST * Do you have serious difficulty walking or climbing stairs? Answer Date of Assessment Author No 10/14/2014 9:00 AM Jaime Weller APRN.MATERIALS SCIENTIST * Do you have difficulty dressing or bathing? Answer Date of Assessment Author No 10/14/2014 9:00 AM Jaime Weller APRN.MATERIALS SCIENTIST * Because of a physical, mental, or emotional condition, do you have difficulty doing errands alone such as visiting a doctor's office or shopping? Answer Date of Assessment Author No 10/14/2014 9:00 AM Jaime Weller APRN.MATERIALS SCIENTIST documented as of this encounter Mental Status * Because of a physical, mental, or emotional condition, do you have serious difficulty concentrating, remembering, or making decisions? Answer Entry Date Author No 10/14/2014 9:00 AM Jaime Weller APRN.MATERIALS SCIENTIST documented in this encounter Plan of Treatment Not on file documented as of this encounter Visit Diagnoses Not on filedocumented in this encounter Care Teams Paper Handler Relationship Specialty Start Date End Date Roberto Hess MD [address] [place] [address] PCP - General 12/23/13 documented as of this encounter
--- OUTSIDE RECORDS SUMMARY | 2024-10-29 07:30 | XMS_ITS | Clinical Summary ---
Author Organization [facility] Address [id number] [address] [place] [address] Care Team Providers Care Gate Agent Name Role Phone Unavailable Primary Care Provider Unavailabl e Social History Tobacco Use Types Packs/Day Years Used Date Smoking Tobacco: Never Assessed Comments Unknown Sex and Gender Information Value Date Recorded Sex Assigned at Not on file Legal Sex Female 4:01 PM EDT Gender Identity Not on file Sexual Orientation Not on file Plan of Treatment Upcoming Encounters Date Type Department Care Team (Late st Contact Info) Description 10/29/2024 2:30 PM EDT Infant Monitor [facility] - Monitor [address] [id number] Health Maintenance Due Date Last Done Comments Depression Screening 1975 Tobacco Screening 1975 Adult BMI Screening 08/02/1981 DTaP,Tdap and Td Vaccines (1 - Tdap) 08/02/1982 Pap Smear 08/02/1984 Zoster (Shingles) Vaccine (1 of 2) 08/02/2013 Influenza Vaccine 12/20/2024 Medical Devices Not on file
--- OUTSIDE RECORDS SUMMARY | 2024-10-29 07:30 | XMS_ITS | Clinical Summary ---
Author Organization [facility] Address [address] [place] [address] Care Team Providers Care Security Guard Supervisor Name Role Phone Roberto Hess MD Primary Care Provider [phone] Allergies Active Allergy Reactions Criticality Noted Date Comments Bacitracin Swelling,Unknown 11/25/2013 Lisinopril Cough 09/29/2024 Sulfa (Sulfonamide Antibiotics) Other 06/2024 Medications albuterol 90 mcg/actuation inhaler Inhale 2 puffs every 4 (four) hours if needed. 5 Active aspirin 81 mg capsule Take 81 mg by mouth in the morning. 5 Active celecoxib (CeleBREX) 200 mg capsule Take 1 capsule by mouth in the morning. 5 Active cetirizine 10 mg capsule Take 10 mg by mouth in the morning. Active gabapentin (Neurontin) 600 mg tablet Take 600 mg by mouth in the morning. Active hydrOXYzine HCL (Atarax) 25 mg tablet Take 25 mg by mouth 1 (one) time. 4 Active metoprolol tartrate (Lopressor) 100 mg tablet Take 100 mg by mouth with breakfast and with evening meal. 5 Active mirtazapine (Remeron) 30 mg tablet Take 30 mg by mouth at bedtime. 5 Active montelukast (Singulair) 10 mg tablet Take 1 tablet by mouth in the morning. 5 Active omeprazole (PriLOSEC) [address] capsule Take 40 mg by mouth before breakfast. 2 Active phenytoin (Dilantin) 50 mg chewable tablet Chew 100 mg two times daily. 4 Active temazepam (Restoril) 15 mg capsule Take 15 mg by mouth at bedtime. 5 Active amLODIPine (Norvasc) 10 mg tabletIndications: Uncontrolled hypertension Take 1 tablet (10 mg) by mouth in the morning. 90 tablet 3 5 07/27/19 26 Active valsartan (Diovan) 320 mg tabletIndications: Uncontrolled hypertension Take 1 tablet (320 mg) by mouth in the morning. 90 tablet 3 5 09/30/19 26 Active hydroCHLOROthiazid e (HYDRODiuril) 25 mg tabletIndications: Uncontrolled hypertension Take 1 tablet (25 mg) by mouth in the morning. 90 tablet 3 5 09/30/19 26 Active atorvastatin (Lipitor) 20 mg tabletIndications: Mixed hyperlipidemia Take 1 tablet (20 mg) by mouth at bedtime. 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 Shivering on exam. Melanoma 12/23/2013 Overview (07/22/2024): Assessment: Diagnosed 15yrs ago on the left back, was resected. No sequale. Follows up every year. Last check was in April of 2013. Numbness of right hand 12/23/2013 Overview (07/22/2024): Assessment: 2/2 C5-C6 cervical spine injury s/p surgery. Right arm unable to flex or extend. Denies any numbness in particular. Plan: Neurontin 900mg OD. Will monitor for signs of compartment syndrome - pulselesness, poikilothermia, pallor, pain, parasthesia Spine center outpatient follow up Cervical disc herniation 11/27/2013 Overview (07/22/2024): C4-C5 paracentral disc protrusion Contusion of soft tissue 11/27/2013 Aneurysm of anterior communicating artery 2013 Overview (07/22/2024): 5 x 4 mm right anterior communicating artery aneurysm Abrasion, multiple sites 11/25/2013 Overview (07/22/2024): Including bilateral knees, left ankle, right posterior arm, left temporal region, bilateral hands, right flank, right shoulder Concussion with brief LOC 11/25/2013 Fracture of right inferior pubic ramus 4 Overview (07/22/2024): Displaced fracture of the right inferior pubic ramus. Hypertension 11/25/2013 L5 vertebral fracture 11/25/2013 Overview (07/22/2024): Bilateral TP fxs Leukocytosis 11/25/2013 SAH (subarachnoid hemorrhage) 11/25/2013 Encounters Date Type Department Care Team Description 09/29/2024 3:00 PM EDT Office Visit [address] [phone] Don Maria MD Uncontrolled hypertension (Primary Dx); CHE (obstructive sleep apnea); Mixed hyperlipidemia; SMITH (dyspnea on exertion); Dry cough 09/03/2024 Orders Only [address] [phone] Angella Kiser MA Essential hypertension 08/09/[address] [phone] Angella Kiser MA from Last 3 Months Family History Medical History Relation Name Comments Diabetes Brother Heart attack Brother Diabetes Father Lung disease Mother Relation Name Status Comments Brother Alive Father Alive Mother Sister Alive Social History Tobacco Use Types Packs/Day Years Used Date Smoking Tobacco: Never Smokeless Tobacco: Never Tobacco Cessation:Counseling Given: Not Answered Alcohol Use Standard Drinks/Week Comments Not Asked 0 (1 standard drink = 0.6 oz pur e alcohol) occasional Comments Unknown Sex and Gender Information Value Date Recorded Sex Assigned at Not on file Legal Sex Female 8:57 AM EDT Gender Identity Not on file Sexual Orientation Not on file Last Filed Vital Signs Vital Sign Reading Time Taken Comments Blood Pressure 157/79 09/29/2024 3:02 PM EDT Pulse 73 09/29/2024 3:02 PM EDT Temperature - - Respiratory Rate - - Oxygen Saturation 95% 09/29/2024 3:02 PM EDT Inhaled Oxygen Concentration - - Weight 78.9 kg (174 lb) 09/29/2024 3:02 PM EDT Height 160 cm (5' 3 ) 09/29/2024 3:02 PM EDT Body Mass Index 30.82 09/29/2024 3:02 PM EDT Plan of Treatment Health Maintenance Due Date Last Done Comments CT Colonography 1963 Colonoscopy 1963 Colorectal Cancer Screening 1963 FIT-DNA 1963 FIT 1963 FOBT 1963 Sigmoidoscopy 1963 Depression Screening 1975 Pap Smear 08/02/1984 Cervical Cancer Screening 08/02/1993 HPV/Cotest 08/02/1993 Mammogram 2003 COVID-19 Vaccine ( season) 2023 03/18/2023, 03/28/2021, 07/28/2020, Additional history exists Influenza Vaccine (#1) 2024 Adult Tetanus 03/18/2033 03/18/2023 Zoster Vaccines Completed 05/01/2020, 02/11/2020 HIB Vaccines Aged Out No longer eligi ble based on patient's age to complete this topic HPV Vaccines Aged Out No longer eligi ble based on patient's age to complete this topic IPV Vaccines Aged Out No longer eligi ble based on patient's age to complete this topic Meningococcal B Vaccine Aged Out No l onger eligible based on patient's age to complete this topic Meningococcal Vaccine Aged Out No shelley karmen eligible based on patient's age to complete this topic Pneumococcal Vaccine: Pediatrics (0 to 5 Years) and At-Risk Patients (6 to 64 Years) Aged Out No longer eligible based on patient's age to complete this topic Rotavirus Vaccines Aged Out No longer eligible based on patient's age to complete this topic Insurance [employer] [facility] Care Teams Security Guard Supervisor Relationship Specialty Start Date End Date Roberto Hess MD [address] [facility] [address] [address] PCP - General 07/26/24
--- OUTSIDE RECORDS SUMMARY | 2024-10-29 07:30 | XMS_ITS | Encounter Summary ---
Author Organization [facility] Address [address] [place] [address] Care Team Providers Care Bitumastic Applier Name Role Phone Roberto Hess MD Primary Care Provider [phone] Source Comments In the event this information is protected by the Federal Confidentiality of Alcohol and Drug AbusePatient Records regulations: The Federal rules restrict any use of the information to criminally investigate or prosecute any alcohol or drug abuse patient.[facility] Encounter Details Date Type Department Care Team (Late st Contact Info) Description 09/30/2014 Patient Msg Medical Records [address] [place] [address] Provider, Cc RE: Patient Registration Completed Social [...] difficulty hearing? Answer Date of Assessment Author Yes 09/21/2014 11:28 AM Mi Amaral (Meenakshi)(Hist) * Are you blind or do you have serious difficulty seeing, even when wearing glasses? Answer Date of Assessment Author No 09/21/2014 11:28 AM Mi Amaral (Meenakshi)(Hist) * Do you have serious difficulty walking or climbing stairs? Answer Date of Assessment Author No 09/21/2014 11:28 AM Mi Amaral (Meenakshi)(Hist) * Do you have difficulty dressing or bathing? Answer Date of Assessment Author No 09/21/2014 11:28 AM Mi Amaral (Meenakshi)(Hist) * Because of a physical, mental, or emotional condition, do you have difficulty doing errands alone such as visiting a doctor's office or shopping? Answer Date of Assessment Author No 09/21/2014 11:28 AM Mi Amaral (Meenakshi)(Hist) documented as of this encounter Mental Status * Because of a physical, mental, or emotional condition, do you have serious difficulty concentrating, remembering, or making decisions? Answer Entry Date Author Yes 09/21/2014 11:28 AM Mi Amaral (Meenakshi)(Hist) documented in this encounter Plan of Treatment Not on file documented as of this encounter Visit Diagnoses Not on filedocumented in this encounter Care Teams Bitumastic Applier Relationship Specialty Start Date End Date Roberto Hess MD [address] [place] [id number] PCP - General 12/23/13 documented as of this encounter
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
--- OUTSIDE RECORDS SUMMARY | 2024-10-29 07:30 | XMS_ITS | Encounter Summary ---
Author Organization [facility] Address [address] [place] [address] Care Team Providers Care Rn Documentation Specialist Name Role Phone Roberto Hess MD Primary Care Provider [phone] Source Comments In the event this information is protected by the Federal Confidentiality of Alcohol and Drug AbusePatient Records regulations: The Federal rules restrict any use of the information to criminally investigate or prosecute any alcohol or drug abuse patient.[facility] Encounter Details Date Type Department Care Team (Late st Contact Info) Description 08/22/2015 Patient Msg Orthopaedics [address] [id number] Wilman Hutchinson MD, PhD [address] [place] [address] RE: Request an Appointment Social History Tobacco Use Types Packs/Day Years [...] of Assessment Author No 10/14/2014 9:00 AM EDT Jaime Jamil, TOOL AND EQUIPMENT RENTAL CLERK.WELCOME WAGON HOSTESS * Are you blind or do you have serious difficulty seeing, even when wearing glasses? Answer Date of Assessment Author No 10/14/2014 9:00 AM EDT Jaime Jamil, TOOL AND EQUIPMENT RENTAL CLERK.WELCOME WAGON HOSTESS * Do you have serious difficulty walking or climbing stairs? Answer Date of Assessment Author No 10/14/2014 9:00 AM [facility] Jaime Jamil APRN.WELCOME WAGON HOSTESS * Do you have difficulty dressing or bathing? Answer Date of Assessment Author No 10/14/2014 9:00 AM Jaime Weller, TOOL AND EQUIPMENT RENTAL CLERK.WELCOME WAGON HOSTESS * Because of a physical, mental, or emotional condition, do you have difficulty doing errands alone such as visiting a doctor's office or shopping? Answer Date of Assessment Author No 10/14/2014 9:00 AM EDT Jaime Jamil, TOOL AND EQUIPMENT RENTAL CLERK.WELCOME WAGON HOSTESS documented as of this encounter Mental Status * Because of a physical, mental, or emotional condition, do you have serious difficulty concentrating, remembering, or making decisions? Answer Entry Date Author No 10/14/2014 9:00 AM Jaime Weller, TOOL AND EQUIPMENT RENTAL CLERK.WELCOME WAGON HOSTESS documented in this encounter Plan of Treatment Not on file documented as of this encounter Visit Diagnoses Not on filedocumented in this encounter Care Teams Rn Documentation Specialist Relationship Specialty Start Date End Date Roberto Hess MD [address] [place] [address] PCP - General 12/23/13 documented as of this encounter
--- OUTSIDE RECORDS SUMMARY | 2024-10-29 07:30 | XMS_ITS | Encounter Summary ---
Author Organization [facility] Address [address] [place] [address] Care Team Providers Care Wireless Consultant Name Role Phone Roberto Hess MD Primary Care Provider [phone] Source Comments In the event this information is protected by the Federal Confidentiality of Alcohol and Drug AbusePatient Records regulations: The Federal rules restrict any use of the information to criminally investigate or prosecute any alcohol or drug abuse patient.[facility] Encounter Details Date Type Department Care Team (Late st Contact Info) Description 11/10/2015 Patient Msg Medical Records [address] [place] [address] Provider, [facility] Procedure Social [...] Author No 10/14/2014 9:00 AM Jaime Weller APRN.CONTENT ENGINEER * Are you blind or do you have serious difficulty seeing, even when wearing glasses? Answer Date of Assessment Author No 10/14/2014 9:00 AM Jaime Weller APRN.CONTENT ENGINEER * Do you have serious difficulty walking or climbing stairs? Answer Date of Assessment Author No 10/14/2014 9:00 AM Jaime Weller APRN.CONTENT ENGINEER * Do you have difficulty dressing or bathing? Answer Date of Assessment Author No 10/14/2014 9:00 AM Jaime Weller APRN.CONTENT ENGINEER * Because of a physical, mental, or emotional condition, do you have difficulty doing errands alone such as visiting a doctor's office or shopping? Answer Date of Assessment Author No 10/14/2014 9:00 AM Jaime Weller APRN.CONTENT ENGINEER documented as of this encounter Mental Status * Because of a physical, mental, or emotional condition, do you have serious difficulty concentrating, remembering, or making decisions? Answer Entry Date Author No 10/14/2014 9:00 AM Jaime Weller APRN.CONTENT ENGINEER documented in this encounter Plan of Treatment Not on file documented as of this encounter Visit Diagnoses Not on filedocumented in this encounter Care Teams Wireless Consultant Relationship Specialty Start Date End Date Roberto Hess MD [address] [place] [address] PCP - General 12/23/13 documented as of this encounter
--- OUTSIDE RECORDS SUMMARY | 2024-10-29 07:30 | XMS_ITS | Encounter Summary ---
Author Organization [facility] Address [address] [place] [address] Care Team Providers Care [employer] Name Role Phone Roberto Hess MD Primary Care Provider [phone] Source Comments In the event this information is protected by the Federal Confidentiality of Alcohol and Drug AbusePatient Records regulations: The Federal rules restrict any use of the information to criminally investigate or prosecute any alcohol or drug abuse patient.[facility] Encounter Details Date Type Department Care Team (Latest Contact Info) Description 05/30/2021 Patient Msg Cerebrovascular Center [address] [place] [address] Provider, [facility] Appointment Follow Up Details Social History Tobacco Use Types Packs/Day Years Used Date Smoking Tobacco: Never Smokeless Tobacco: Never Alcohol Use Standard Drinks/Week Comments Yes 0 (1 standard drink = 0.6 oz pure alcohol) occasional: twice a week: 2 drinks PHQ-2 Answer Date Recorded PHQ-2 score 0 09/09/2018 Area Deprivation Index Answer Date Denilson rded National Score (1-100), lower number is lower ri sk Not on file 03/29/2020 State Score (1-10), lower number is lower risk N ot on file 03/29/2020 Data from: https://www.neighborhoodatlas.[facility]/. Last address used for calculation Not on file 03/29/2020 Comments No Sex and Gender Information Value Date Recorded Sex Assigned at Female 09/05/2018 10:22 PM EDT Legal Sex Female 8:29 PM EDT Gender Identity Female 09/05/2018 10:22 PM EDT Sexual Orientation Straight 09/05/2018 10 :22 PM EDT COVID-19 Exposure Response Date Recorded In the last month, have you been in contact with someone who was confirmed or suspected to have Coronavirus / COVID-19? Unable to assess 05/30/2021 10:33 AM EST documented as of this encounter Functional Status * Are you deaf or do you have serious difficulty hearing? Answer Date of Assessment Author No 10/14/2014 9:00 AM Jaime Weller APRN.AIR BRAKE OPERATOR * Are you blind or do you have serious difficulty seeing, even when wearing glasses? Answer Date of Assessment Author No 10/14/2014 9:00 AM Jaime Weller APRN.AIR BRAKE OPERATOR * Do you have serious difficulty walking or climbing stairs? Answer Date of Assessment Author No 10/14/2014 9:00 AM Jaime Weller APRN.AIR BRAKE OPERATOR * Do you have difficulty dressing or bathing? Answer Date of Assessment Author No 10/14/2014 9:00 AM Jaime Weller APRN.AIR BRAKE OPERATOR * Because of a physical, mental, or emotional condition, do you have difficulty doing errands alone such as visiting a doctor's office or shopping? Answer Date of Assessment Author No 10/14/2014 9:00 AM Jaime Weller APRN.AIR BRAKE OPERATOR documented as of this encounter Mental Status * Because of a physical, mental, or emotional condition, do you have serious difficulty concentrating, remembering, or making decisions? Answer Entry Date Author No 10/14/2014 9:00 AM Jaime Weller APRN.AIR BRAKE OPERATOR documented in this encounter Plan of Treatment Not on file documented as of this encounter Visit Diagnoses Not on filedocumented in this encounter Care Teams [employer] Relationship Specialty Start Date End Date Roberto Hess MD [address] [place] [address] PCP - General 12/23/13 documented as of this encounter
--- OUTSIDE RECORDS SUMMARY | 2024-10-29 07:31 | XMS_ITS | Patient Health Record ---
Author Organization The [facility] in [place] Address [address] [place] [address] Care Team Providers Care Carpenter Ship Name Role Phone Constantine Hess Primary Care Provider [phone] Allergies Allergen (clinical drug ingredient) Drug/Non Drug Allergy documented on EMR Reaction Allergy Type Onset Date Status bacitracin Bacitracin oozing Drug Allergy Activ e pseudoephedrine Zephrex-D unknown Drug Allergy A ctive Substance with sulfonamide structure and antibacterial mechanism of action (substance) Sulfa Antibiotics unknown Drug Allergy A ctive Results Component Value Reference Range Notes PROF CHEM 8 (BAS METB) Reviewed date:08/13/2024 08:57:17 AM Interpretation: Performing Lab: Notes/Report: [facility] , Sodium 145 136-145 mmol/L Potassium 4.0 3.5-5.1 mmol/L Chloride 109 98-107 mmol/L Carbon Dioxide 28.8 21.0-32.0 mmol/L Anion Gap 11.2 Glucose 115 74-106 mg/dL Blood Urea Nitrogen 33.0 7.0-18.0 mg/dL Creatinine 0.91 0.55-1.02 mg/dL Estimated GFR ( Gilda >60 >=60 mL/min/1.73m 2 Estimated GFR (Non- Estrellita >60 >=60 mL/min/1.73m 2 BUN Creatinine Ratio 36.3 Calcium 9.0 8.5-10.1 mg/dL Performing Lab: see note ML - [facility] LB CA echo doppler complete Reviewed date:08/21/2024 05:08:25 PM Interpretation: Performing Lab: Notes/Report: Source Facility: [facility]-[address] [place] [address] [place] [address] Cardiology Report Signed Patient: ALEENA NOEL MR#: [id number] : 1965 Acct:[id number] Age/Sex: 59 / F ADM Date: 08/20/24 Loc: CARD Attending Dr: AVA JOHNSON Ordering Physician: AVA JOHNSON Date of Service: 08/20/24 Procedure(s): CA echo doppler complete Accession Number(s): [id number] cc: Roberto Hess M.D.; AVA JOHNSON Patient Name: ALEENA NOEL MR#: [id number] : 1965 Exam Date: 08/20/2024 Ordering Doctor: DR AVA JOHNSON M.D. ECHOCARDIOGRAM REPORT PROCEDURE: CA ECHO DOPPLER COMPLETE INDICATIONS: Dyspnea on exertion, hypertension COMPARISON: None. DESCRIPTION: COMPLETE ECHOCARDIOGRAM Real-time transthoracic echocardiography with 2D, M-mode, spectral and color flow Doppler performed. QUALITY: Technical quality was good. LEFT VENTRICLE: Normal chamber size. Mild proximal septal hypertrophy (sigmoid septum). Left ventricle systolic function without wall motion abnormalities LV EF: Normal left ventricular ejection fraction 65% DIASTOLIC: Normal diastolic function. ATRIAL SEPTUM: Visually appears intact. LEFT ATRIUM: Normal chamber size. RIGHT ATRIUM: Normal chamber size. RIGHT VENTRICLE: Normal chamber size. Normal right ventricular systolic function. TRICUSPID VALVE: Normal mobility and thickness. No stenosis with trivial regurgitation. Doppler studies reveal mildly (35-45) elevated right sided pressures.RVSP 38 mmHg MITRAL VALVE: Normal mobility and thickness. No evidence of mitral valve stenosis. There is no mitral annular calcification. Trivial mitral regurgitation. AORTIC VALVE: Normal trileaflet appearance. No visible sclerosis. Normal leaflet mobility. No evidence of aortic valve stenosis. No aortic regurgitation. AORTIC ROOT: Normal diameter and appearance. Ascending aorta is normal in size. PULMONIC VALVE: Not well visualized. No stenosis. No regurgitation. PERICARDIUM: No evidence of pericardial effusion. IVC: IVC is dilated ,2.5 cm, collapses greater than 50% with sniff. RAP 8 mmHg PLEURA: CONCLUSION: Mild proximal septal hypertrophy Normal left ventricle systolic function without wall motion abnormalities, ejection fraction 65% Normal left ventricle diastolic function Normal right ventricle size and systolic function Mild pulmonary hypertension, RVSP 38 mmHg No significant valvular abnormalities Adult Echocardiography Procedure Report Left Ventricle LVEDD (3.7 - 5.6 cm): 3.61 cm LVESD (2.2 - 4.0 cm): 2.54 cm LVIVS thickness (0.6 - 1.2 cm): 1.28 cm LVPW thickness (0.5 - 1.0 cm): 0.83 cm e': 0.09 m/s E - e': 7.72 LVOT Max Gradient: 2.80 mm[Hg] LVOT Area (cm2): 0.84 m/s Peak Velocity (LVOT): 0.84 m/s Mean Velocity (LVOT): 0.54 m/s LVOT Diameter 2.02 cm Left Ventricular Ejection Fraction: Left Atrium LA Volume Index (2D A2C): 27.19 ml/m2 Left Atrium Systolic Dimension: 3.49 cm Mitral Valve MV E to A Ratio: 0.91 MV Max Gradient: MV Mean Gradient: Mitral Valve A-Wave Peak Velocity: 0.75 m/s Mitral Valve E-Wave Peak Velocity: 0.68 m/s Cardiovascular Orifice Area: Right Ventricle RV Internal Diastolic Dimension: Aorta AO Root Diam: 2.92 cm Ascending Ao Diam: 2.69 cm Aortic Valve AoV Area (Peak Geovanny): 2.16 cm2, 2.16 cm2 AoV Area (VTI): 2.13 cm2, 2.13 cm2 Deceleration Mccook: Pressure Half-Time: Peak Velocity(Antegrade Flow): 1.24 m/s Peak Gradient(Antegrade Flow): 6.15 mm[Hg] Mean Velocity(Antegrade Flow): 0.84 m/s Mean Gradient(Antegrade Flow): 3.18 mm[Hg] Velocity Time Integral: 28.62 cm Tricuspid Valve Peak Velocity (Regurgitant Flow): 2.73 m/s Peak Velocity: Pulmonic Valve Mean Gradient: 1.31 mm[Hg] Mean Velocity: 0.53 m/s Peak Velocity: 0.76 m/s, 0.72 m/s Peak Gradient: 2.08 mm[Hg], 2.34 mm[Hg] Right Atrium Right Atrium Systolic Pressure: 8 mmHg Dictated by: Alejandro Solomon MD on 08/20/2024 at 17:42 Approved by: Alejandro Soolmon MD on 08/20/2024 at 17:51 Dictated By: Alejandro Solomon M.D. Signed By: 08/20/241751 DD/ 50 TD/TT: Water Use Inspector: [place] [address] Cardiology Report Signed Patient: CONNOR NOEL MR#: [id number] : 1965 Acct:[id number] Age/Sex: 59 / F ADM Date: 08/20/24 Loc: CARD Attending Dr: AVA JOHNSON Ordering Physician: AVA JOHNSON Date of Service: 08/20/24 Procedure(s): CA ech o doppler complete Accession Number(s): [id number] cc: Roberto Hess M.D. ; AVA JOHNSON Patient Name: ALEENA NOEL MR#: [id number] : 1965 Exam Date: 08/20/2024 Ordering Doctor: DR AVA JOHNSON M.D. ECHOCARDIOGRAM REPORT PROCEDURE: CA ECHO DOPPLER COMPLETE INDICATIONS: Dyspnea on exertion, hypertension COMPARISON: None. DESCRIPTION: COMPLET E ECHOCARDIOGRAM Real-time transthoracic echocardiography wit h 2D, M-mode, spectral and color flow Doppler performed. QUALITY: Technical quality was good. LEFT VENTRICLE: Norm al chamber size. Mild proximal septal hypertrophy (sigmoid septum). Le ft ventricle systolic function without wall motion abnormalities LV EF: Normal left ventricular ejection fraction 65% DIASTOLIC: Normal diastolic function. ATRIAL SEPTUM: Visua lly appears intact. LEFT ATRIUM: Normal chamber size. RIGHT ATRIUM: Normal chamber size. RIGHT VENTRICLE: Nor mal chamber size. Normal right ventricular systolic function. TRICUSPID VALVE: Nor mal mobility and thickness. No stenosis with trivial regurgitation. Doppl er studies reveal mildly (35-45) elevated right sided pressures.RVSP 38 mmHg MITRAL VALVE: Normal mobility and thickness. No evidence of mitral valve stenosis. There is n o mitral annular calcification. Trivial mitral regurgitation. AORTIC VALVE: Normal trileaflet appearance. No visible sclerosis. Normal leaflet mobility. No evidence of aortic valve stenosis. No aortic regurgitation. AORTIC ROOT: Normal diameter and appearance. Ascending aorta is normal in size. PULMONIC VALVE: Not well visualized. No stenosis. No regurgitation. PERICARDIUM: No evid ence of pericardial effusion. IVC: IVC is dilated ,2.5 cm, collapses greater than 50% with sniff. RAP 8 mmHg PLEURA: CONCLUSION: Mild proximal septal hypertrophy Normal left ventricl e systolic function without wall motion abnormalities, ejection fraction 65% Normal left ventricl e diastolic function Normal right ventric le size and systolic function Mild pulmonary hypertension, RVSP 38 mmHg No significant valvu lar abnormalities Adult Echocardiograp hy Procedure Report Left Ventricle LVEDD (3.7 - 5.6 cm) : 3.61 cm LVESD (2.2 - 4.0 cm) : 2.54 cm LVIVS thickness (0.6 - 1.2 cm): 1.28 cm LVPW thickness (0.5 - 1.0 cm): 0.83 cm e': 0.09 m/s E - e': 7.72 LVOT Max Gradient: 2 .80 mm[Hg] LVOT Area (cm2): 0.8 4 m/s Peak Velocity (LVOT) : 0.84 m/s Mean Velocity (LVOT) : 0.54 m/s LVOT Diameter 2.02 cm Left Ventricular Ejection Fraction: Left Atrium LA Volume Index (2D A2C): 27.19 ml/m2 Left Atrium Systolic Dimension: 3.49 cm Mitral Valve MV E to A Ratio: 0.91 MV Max Gradient: MV Mean Gradient: Mitral Valve A-Wave Peak Velocity: 0.75 m/s Mitral Valve E-Wave Peak Velocity: 0.68 m/s Cardiovascular Orifi ce Area: Right Ventricle RV Internal Diastoli c Dimension: Aorta AO Root Diam: 2.92 cm Ascending Ao Diam: 2 .69 cm Aortic Valve AoV Area (Peak Geovanny): 2.16 cm2, 2.16 cm2 AoV Area (VTI): 2.13 cm2, 2.13 cm2 Deceleration Mccook: Pressure Half-Time: Peak Velocity(Antegr jag Flow): 1.24 m/s Peak Gradient(Antegr jag Flow): 6.15 mm[Hg] Mean Velocity(Antegr jag Flow): 0.84 m/s Mean Gradient(Antegr jag Flow): 3.18 mm[Hg] Velocity Time Integr al: 28.62 cm Tricuspid Valve Peak Velocity (Regurgitant Flow): 2.73 m/s Peak Velocity: Pulmonic Valve Mean Gradient: 1.31 mm[Hg] Mean Velocity: 0.53 m/s Peak Velocity: 0.76 m/s, 0.72 m/s Peak Gradient: 2.08 mm[Hg], 2.34 mm[Hg] Right Atrium Right Atrium Systoli c Pressure: 8 mmHg Dictated by: Alejandro Solomon MD on 08/20/2024 at 17:42 Approved by: Alejandro Solomon MD on 08/20/2024 at 17:51 Dictated By: Alejandro Solomon M.D. Signed By: 08/20/241751 DD/ 50 TD/TT: Water Use Inspector: Lupus Anticoagulant Reflex Reviewed date:06/21/2024 08:59:49 PM Interpretation: Performing Lab: Notes/Report: [facility] , PTT-LA 31.0 0.0-43.5 sec dRVVT 35.0 0.0-47.0 sec Lupus Reflex Interpretation Comment: . Performed at: [address] [id number] Yarn Sizer: Fletcher Alvarado MD, Phone: [phone] No lupus anticoagulant was detected. Performing Lab: see note [facility] Antistreptolysin O Ab Reviewed date:06/22/2024 06:28:16 PM Interpretation: Performing Lab: Notes/Report: [facility] , Antistreptolysin O Ab 65.0 0.0-200.0 IU/mL Performed at: [address] [id number] Y[employer] Sizer: Joe Douglass PhD, Phone: [phone] Performing Lab: see note [facility] LB RHEUMATOID FACTOR Reviewed date:06/22/2024 06:28:16 PM Interpretation: Performing Lab: Notes/Report: [facility] , Rheumatoid Factor (RF) <10.0 <14.0 IU/mL Performing Lab: see note [facility] LB ALIDA by IFA Reviewed date:06/22/2024 06:28:16 PM Interpretation: Performing Lab: Notes/Report: [facility] , Antinuclear Antibodies, IFA Negative . [address] [place] [id number] International Consensus on Antinuclear Antibody (ALIDA) Yarn Sizer: Joe Douglass PhD, Phone: [phone] Patterns (ICAP). Borderline 1:80 For more information about Hep-2 cell patterns use Performed at: [facility] Positive >1:80 ANApatterns.org, the official website for the Negative <1:80 ICAP nomenclature: AC-0 Performing Lab: see note [facility] TSH Reviewed date:06/05/2024 01:41:31 PM Interpretation: Performing Lab: Notes/Report: [facility] , Thyroid Stimulating Hormone 0.676 0.358-3.740 uIU/mL Performing Lab: see note - [facility] LB T4 Reviewed date:06/05/2024 01:41:31 PM Interpretation: Performing Lab: Notes/Report: [facility] , T4 Thyroxine 8.10 4.80-13.90 ug/dL Performing Lab: see note - [facility] INSULIN Reviewed date:06/05/2024 01:41:31 PM Interpretation: Performing Lab: Notes/Report: [facility] , Insulin 7.4 2.6-24.9 uIU/mL [address] [place], [place] [id number] Yarn Sizer: Joe Douglass PhD, Phone: [phone] Performed at: [facility] Performing Lab: see note [facility] FREE T3 Reviewed date:06/05/2024 01:41:31 PM Interpretation: Performing Lab: Notes/Report: [facility] , Free T3 3.26 2.18-3.98 pg/mL Performing Lab: see note - [facility] LB COVID-19, Flu A+B IH Reviewed date:06/05/2024 01:41:31 PM Interpretation: Performing Lab: Notes/Report: COVID - FLU A - FLU B - Control + IRON Reviewed date:06/05/2024 01:41:31 PM Interpretation: Performing Lab: Notes/Report: [facility] , Iron 96.0 50.0-170.0 ug/dL Performing Lab: see note [facility] CBC AUTO DIFF Reviewed date:06/05/2024 01:41:31 PM Interpretation: Performing Lab: Notes/Report: [facility] , White Blood Count 3.8 4.0-11.0 10 3/uL Red Blood Count 5.28 4.20-5.40 10 6/uL Hemoglobin 15.4 12.0-16.0 g/dL Hematocrit 45.1 36.0-48.0 % Mean Corpuscular Volume 85.4 81.0-99.0 fL Mean Corpuscular Hemoglobin 29.2 26.7-34.0 pg Mean Corpuscular HGB Conc 34.1 29.9-35.2 g/dL Red Cell Distribution Width 12.2 11.0-15.0 % Platelet Count 209 150-450 10 3/uL Mean Platelet Volume 9.2 9.5-13.5 fL Neutrophils Percent Auto 48.5 43.0-75.0 % Lymphocytes Percent Auto 29.7 20.5-60.0 % Monocytes Percent Auto 8.0 1.7-12.0 % Eosinophils Percent Auto 10.9 0.9-7.0 % Basophils Percent Auto 2.4 0.2-2.0 % Immature Granulocytes Pct Auto 0.5 0.0-0.5 % Neutrophils Absolute Auto 1.8 1.4-6.5 10 3/uL Lymphocytes Absolute Auto 1.1 1.2-3.8 10 3/uL Monocytes Absolute Auto 0.3 0.3-0.8 10 3/uL Eosinophils Absolute Auto 0.4 0.0-0.7 10 3/uL Basophils Absolute Auto 0.1 0.0-0.1 10 3/uL Immature Granulocytes Abs Auto 0.02 0.00-0.03 10 3/uL Performing Lab: see note ML - [facility] Occult Blood* Reviewed date:06/05/2024 01:41:31 PM Interpretation: Performing Lab: Notes/Report: [facility] , Occult Blood Negative Performing Lab: see note ML - [facility] LB GLYCOHEMOGLOBIN A1C Reviewed date:06/05/2024 01:41:31 PM Interpretation: Performing Lab: Notes/Report: [facility] , Glycohemoglobin A1C 5.4 4.5-6.2 % > 7.0 ADA THERAPEUTIC TARGET < 7.0 ADA RECOMMENDED LIMIT 4.0 - 6.0 ACTION SUGGESTED Estimated Average Glucose 108 Performing Lab: see note ML - [facility] LB NM josie perf SPECT rest str Reviewed date:07/22/2024 05:13:54 PM Interpretation: Performing Lab: Notes/Report: Source Facility: [facility]-[address] [place] [address] Nuclear Medicine Report Signed Patient: ALEENA NOEL MR#: [id number] : 1965 Acct:[id number] Age/Sex: 58 / F ADM Date: 07/20/24 Loc: NM Attending Dr: Roberto Hess M.D. Ordering Physician: Roberto Hess M.D. Date of Service: 07/20/24 Procedure(s): NM josie perf SPECT rest str Accession Number(s): [id number] cc: Roberto Hess M.D. Patient Name: ALEENA NOEL MR#: [id number] : 1965 Exam Date: 07/20/2024 Ordering Doctor: DR Roberto Hess . RADIOLOGY REPORT PROCEDURE: NM JOSIE PERF SPECT REST STR COMPARISON: None. INDICATIONS: CHEST PAIN, SHORTNESS OF BREATH, HYPERTENSION TECHNIQUE: Exam Description: Stress/Rest two day protocol gated SPECT Rest Imaging: mCi Tc-99m Cardiolite IV on 07/19/2024 Stress Imaging 25.9 mCi Tc-99m Cardiolite IV on 07/22/2024 Exercise Protocol: 0.4 mg Lexiscan given IV Heart Rate (bpm): Rest: 78 Max: 106 PMHR: 66 Blood Pressure: Rest: 158/100 Max: 180/110 Symptoms: Rest and peak stress ECG findings were pending and the exercise portion of the study was pending per attending [facility] . For more details please see separate cardiac stress test report. FINDINGS: QUALITY OF STUDY: Good PERFUSION DEFECT: None LOCATION: SIZE: SEVERITY: TYPE: WALL MOTION: Normal LV SIZE: 63 mL. TID / TCD: 0.9 LVEF: Calculated EF 77%. SUMMARY: Normal Myocardial perfusion imaging study CONCLUSION: Normal myocardial perfusion images without ischemia or infarct Normal LV systolic function, EF 77% No TID, TID 0.9 EKG stress test is reported seperately Dictated by: Alejandro Solomon MD on 07/22/2024 at 12:59 Approved by: Alejandro Solomon MD on 07/22/2024 at 13:06 Dictated By: Alejandro Solomon M.D. Signed By: 07/22/24 1307 DD/ 1306 TD/TT: Water Use Inspector: [place] [address] Nuclear Medicine Report Signed Patient: CONNOR NOEL MR#: [id number] : 1965 Acct:[id number] Age/Sex: 58 / F ADM Date: 07/20/24 Loc: NM Attending Dr: Lorena Hess M.D. Ordering Physician: Roberto Hess M.D. Date of Service: 07/20/24 Procedure(s): NM josie perf SPECT rest str Accession Number(s): [id number] cc: Roberto Hess M.D. Patient Name: ALEEAN NOEL MR#: [id number] : 1965 Exam Date: 07/20/2024 Ordering Doctor: DR Roberto Hess . RADIOLOGY REPORT PROCEDURE: NM JOSIE PE RF SPECT REST STR COMPARISON: None. INDICATIONS: CHEST P AIN, SHORTNESS OF BREATH, HYPERTENSION TECHNIQUE: Exam Description: Stress/Rest two day protocol gated SPECT Rest Imaging: mCi Tc -99m Cardiolite IV on 07/19/2024 Stress Imaging 25.9 mCi Tc-99m Cardiolite IV on 07/22/2024 Exercise Protocol: 0 .4 mg Lexiscan given IV Heart Rate (bpm): Re st: 78 Max: 106 PMHR: 66 Blood Pressure: Rest : 158/100 Max: 180/110 Symptoms: Rest and peak stress ECG findings were pending and the exercise portion of the study was pending pe r attending physician [facility] . For more details please see separate cardiac str ess test report. FINDINGS: QUALITY OF STUDY: Good PERFUSION DEFECT: None LOCATION: SIZE: SEVERITY: TYPE: WALL MOTION: Normal LV SIZE: 63 mL. TID / TCD: 0.9 LVEF: Calculated EF 77%. SUMMARY: Normal Myocardial perfusion imaging study CONCLUSION: Normal myocardial perfusion images without ischemia or infarct Normal LV systolic function, EF 77% No TID, TID 0.9 EKG stress test is reported seperately Dictated by: Alejandro Solomon MD on 07/22/2024 at 12:59 Approved by: Alejandro Solomon MD on 07/22/2024 at 13:06 Dictated By: Alejandro Solomon M.D. Signed By: 07/22/24 1307 DD/ 1306 TD/TT: Water Use Inspector: URIC ACID SERUM Reviewed date:06/18/2024 01:05:37 PM Interpretation: Performing Lab: Notes/Report: [facility] , Uric Acid 3.2 2.6-6.0 mg/dL Performing Lab: see note ML - [facility] LB CRP Reviewed date:06/18/2024 01:05:37 PM Interpretation: Performing Lab: Notes/Report: [facility] , C Reactive Protein <0.50 <=0.50 mg/dL Performing Lab: see note - [facility] LB VITAMIN D 25 [place] Reviewed date:06/05/2024 01:41:31 PM Interpretation: Performing Lab: Notes/Report: [facility] , Vitamin D 53.2 30-100 ng/mL Vit D sufficient >100 ng/mL Potential Toxicity <20 ng/mL Vit D deficient 20-<30 ng/mL Vit D insufficient Performing Lab: see note ML - [facility] LB PROF 14(COMP METB) Reviewed date:06/05/2024 01:41:31 PM Interpretation: Performing Lab: Notes/Report: [facility] , Sodium 145 136-145 mmol/L Potassium 3.7 3.5-5.1 mmol/L Chloride 107 98-107 mmol/L Carbon Dioxide 31.2 21.0-32.0 mmol/L Anion Gap 10.5 Glucose 85 74-106 mg/dL Blood Urea Nitrogen 28.0 7.0-18.0 mg/dL Creatinine 0.86 0.55-1.02 mg/dL Estimated GFR ( Gilda >60 >=60 mL/min/1.73m 2 Estimated GFR (Non- Estrellita >60 >=60 mL/min/1.73m 2 BUN Creatinine Ratio 32.6 Calcium 9.2 8.5-10.1 mg/dL Bilirubin Total 0.9 0.2-1.0 mg/dL Aspartate Amino Transferase 21 15-37 U/L Alanine Aminotransferase 27 14-59 U/L Alkaline Phosphatase 73 46-116 U/L Total Protein 6.9 6.4-8.2 g/dL Albumin Level 3.8 3.4-5.0 g/dL Globulin 3.1 Albumin Globulin Ratio 1.2 Performing Lab: see note ML - [facility] LB LIPID PROFILE Reviewed date:06/05/2024 01:41:31 PM Interpretation: Performing Lab: Notes/Report: [facility] , Triglycerides 88 <=150 mg/dL Cholesterol 229 <=200 mg/dL HDL Cholesterol 63 40-60 mg/dL <40 mg/dl - HIGH CARDIOVASCULAR RISK > or =60 mg/dl - LOW CARDIOVASCULAR RISK LDL Cholesterol Calculated 149.0 >190 mg/dl VERY HIGH 130-159 mg/dl BORDERLINE HIGH 100-129 mg/dl NEAR OR ABOVE OPTIMAL <100 mg/dl OPTIMAL 160-189 mg/dl HIGH VLDL CHOLESTEROL 17.6 Chol HDL Ratio 3.6 >11.0 HIGH RISK 4.4 - 7.1 AVERAGE RISK 3.3 - 4.4 LOW RISK 7.1 - 11.0 MODERATE RISK Performing Lab: see note ML - [facility] LB Reason For Referral No Information Medications Medication SIG (Take, Route, Frequency, Duration) Notes Start Date End Date Status Mirtazapine 30 MG 1 tablet at bedtime Orally Once a day for 30 days 06/21/2024 Active Multivitamin Active Singulair 10 MG 1 tablet Orally Once a day for 30 days 06/03/2024 Active Aspirin Adult Low Dose 81 MG 1 tablet Or ally Once a day 06/03/2024 Active Ventolin HFA 108 (90 Base) MCG/ACT 2 puff as needed Inhalation every 4 hrs for 30 PRN 04/25/2023 Active Azelastine HCl 0.05 % 1 drop into affect ed eye Ophthalmic Twice a day for 30 days 04/25/2023 Active ZyrTEC Active Celecoxib 200 mg TAKE ONE CAPSULE BY MOUTH ONCE DAILY for 30 Active Collagen Active hydrOXYzine HCl 25 mg TAKE ONE TABLET BY MOUTH FOUR TIMES A DAY NEEDED FOR 15 DAYS for 15 PRN Active Magnesium Active amLODIPine Besylate 10 MG 1 tablet Orall y Once a day for 30 days 07/27/2024 Active Metoprolol Tartrate 100 MG 1 tablet with food Orally Twice a day for 30 days 06/03/2024 Active Atorvastatin Calcium 20 MG 1 tablet Oral ly Once a day for 30 days 10/04/2024 Active hydroCHLOROthiazide 25 MG 1 tablet in th e morning Orally Once a day for 30 days 07/27/2024 Active Valsartan 320 MG 1 tablet Orally Once a day for 30 days 10/04/2024 Active Meclizine HCl 25 MG 1 tablet as needed Orally QID PRN 07/08/2023 Active Immunizations Vaccine Route Administration Date Status Comme [facility] Pfizer Syringe Pre -Filled 30 mcg/0.3 mL Unknown 03/18/2023 Administered SARS-COV-2 (COVID 19 Pfizer 30mcg/0.3mL) Unknown 07/07/2020 Administered SARS-COV-2 (COVID 19 Pfizer 30mcg/0.3mL) Unknown 07/28/2020 Administered SARS-COV-2 (COVID 19 Pfizer 30mcg/0.3mL) Unknown 03/28/2021 Administered Tdap (Boostrix) Unknown 03/18/2023 Administered ZOSTER (SHINGLES) VACCINE (HZV) Unknown 02/11/2020 Admi nistered ZOSTER (SHINGLES) VACCINE (HZV) Unknown 05/01/2020 Admi nistered Social History Tobacco Use: Social History Observation Description Date Details (start date - stop date) Never Smoker NA - NA Tobacco Use/Smoking Question Answer Notes Patient is a nonsmoker Alcohol Screen (Audit-C) Question Answer Notes Did you have a drink containing alcohol in the p ast year? No Points 0 Interpretation Negative AUDIT-C (Standard) Question Answer Notes Did you have a drink contain ing alcohol in the past year? Yes How often did you have six o r more drinks on one occasion in the past year? Less than monthly (1 point) How many drinks did you have on a typical day when you were drinking in the past year? 1 or 2 drinks (0 point) How often did you have a dri nk containing alcohol in the past year? 2 to 4 times a month (2 points) Points 3 Interpretation Positive Problems Problem Type SNOMED Code ICD Code Onset Dates Problem Status W/U Status Risk Notes Problem Hypertension (26340700) Hypertension (I10) Active confirmed Problem Cervical radiculopathy (41898244) Cervical radiculopathy (M54.12) Active confirmed Problem Anxiety (36067536) Anxiety (F41.9) Active confi rmed Problem Obstructive sleep apnea syndrome (21075786) CHE (obstructive sleep apnea) (G47.33) Active confirmed Problem Deep venous thrombosis (256929041) DVT (deep venous thrombosis) (I82.409) Active confirmed Problem Migraine (48591650) Migraine (G43.909) Active confirmed Problem Hidradenitis suppurativa (64773985) Hidradenitis suppurativa (L73.2) Active confirmed Problem Leiomyoma of uterus (85085112) Leiomyoma of uterus (D25.9) Active confirmed Problem Well adult (524547375) Well adult (Z00.00) Active confirmed Problem Arthralgia of the pelvic region and thigh (284513841) Right hip pain (M25.551) Active confirmed Problem Cellulitis (453683178) Cellulitis (L03.90) Active confirmed Problem Seasonal allergic rhinitis (876341069) Seasonal allergic rhinitis (J30.2) Active confirmed Problem Cerebral aneurysm (291182697) Cerebral aneurysm (I67.1) Active confirmed Problem Dyshidrotic eczema (597594871) Dyshidrotic eczema (L30.1) Active confirmed Problem Prolapsed cervical intervertebral disc (928552930) Cervical disc herniation (M50.20) Active confirmed Problem Acute bronchiolitis (6069504) Acute bronchiolitis (J21.9) Active confirmed Problem White blood cell disorder ([id number]) Abnormal white blood cell (WBC) count (D72.9) Active confirmed Problem Depression (130420723) Depression (F32.A) Active confirmed Vital Signs Heart Rate 91 /min 06/03/2024 Temperature 97.9 degrees Fahrenheit 05/06/2024 Oximetry 96 % 06/03/2024 Blood pressure diastolic 80 mm Hg 07/21/2024 Height 63 in 07/21/2024 Blood pressure systolic 144 mm Hg 07/21/2024 Weight 149.6 lbs 06/25/2024 BMI 26.5 kg/m2 06/25/2024 Procedures Procedure Date Ordered Date Performed Result Body Sit e Cardiolyte Stress Test 07/09/2024 N/A Encounters Encounter Location Date Provider Diagnosis [facility] [address] [place] [address] 07/25/2024 Constantine Hess [facility] [address] [place] [address] 07/27/[address] [facility] [address] [place] [address] 08/17/2024 Constantine y [facility] [address] [place] [address] 08/21/2024 Constantine Hoy [facility] [address] [place] [address] 10/04/2024 Constantine Hoy Hypertension I10 [facility] [address] [place] [address] 06/22/2024 Constantine Hoy Hypertension I10 and Abnormal white blood cell (WBC) count D72.9 [facility] [address] [place] [address]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
[2024-10-29 08:40] LABS: Alanine Aminotransferase 37 U/L (14-59); Albumin Globulin Ratio 1.3; Albumin Level 3.9 g/dL (3.4-5.0); Alkaline Phosphatase 83 U/L (46-116); Anion Gap 16.0; Aspartate Amino Transferase 24 U/L (15-37); Blood Urea Nitrogen 41.0 mg/dL (7.0-18.0); Calcium 9.7 mg/dL (8.5-10.1); Carbon Dioxide 27.4 mmol/L (21.0-32.0); Chloride 106 mmol/L (98-107); Cholesterol 148 mg/dL (<=200); Estimated GFR (African America 38 (>=60 mL/min/1.73m^2); Estimated GFR (Non-African Ame 31 (>=60 mL/min/1.73m^2); Globulin 3.1 g/dL; Glucose 106 mg/dL (74-106); HDL Cholesterol 52 mg/dL (40-60); Potassium 4.4 mmol/L (3.5-5.1); Sodium 145 mmol/L (136-145); Total Protein 7.0 g/dL (6.4-8.2); Triglycerides 101 mg/dL (<=150); VLDL CHOLESTEROL 20.2 mg/dL
== END 2024-10-29 07:28 | disposition home or self-care (01) ==
LOC: LAB 07:28
PROVIDERS: PCP Family Medicine; Visit Provider Internal Medicine Interventional Cardiology
DX: E78.2 Mixed hyperlipidemia (principal); I10 Essential (primary) hypertension
CPT/HCPCS: 36415; 80053; 80061

== ENCOUNTER 2024-10-29 19:29 | Emergency (ER) | payer OTHER, SELFPAY ==
[2024-10-29] VITALS (7 sets, daily range): BP systolic 115–131; BP diastolic 55–63; PULSE 66–77; TEMP 36.5; O2SAT 97; BMI 30.8
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
--- NOTE | 2024-10-29 20:00 | ECG_ITS ---
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
[2024-10-29 20:34] LABS: Hematocrit 40.1 % (36.0-48.0); Hemoglobin 13.8 g/dL (12.0-16.0); Immature Granulocytes Abs Auto 0.02 10^3/uL (0.00-0.03); Immature Granulocytes Pct Auto 0.3 % (0.0-0.5); Lymphocytes Absolute Auto 1.4 10^3/uL (1.2-3.8); Mean Corpuscular HGB Conc 34.4 g/dL (29.9-35.2); Mean Corpuscular Hemoglobin 29.9 pg (26.7-34.0); Mean Corpuscular Volume 86.8 fL (81.0-99.0); Platelet Count 169 10^3/uL (150-450); Red Blood Count 4.62 10^6/uL (4.20-5.40); White Blood Count 7.2 10^3/uL (4.0-11.0)
[2024-10-29 20:37] LABS: Glucose Urine UA NEGATIVE (NEGATIVE)
[2024-10-29 20:45] LABS: Anion Gap 12.5; Blood Urea Nitrogen 46.0 mg/dL (7.0-18.0); Calcium 9.6 mg/dL (8.5-10.1); Carbon Dioxide 28.9 mmol/L (21.0-32.0); Chloride 103 mmol/L (98-107); Estimated GFR (African America 36 (>=60 mL/min/1.73m^2); Estimated GFR (Non-African Ame 29 (>=60 mL/min/1.73m^2); Glucose 119 mg/dL (74-106); Potassium 3.4 mmol/L (3.5-5.1); Sodium 141 mmol/L (136-145)
[2024-10-29 20:58] LABS: Cast Seen? SEEN #/LPF (NONE SEEN); Crystals Seen? None Seen #/HPF (None Seen); Urine Culture Indicated NO
== END 2024-10-29 21:19 | disposition home or self-care (01) ==
PROVIDERS: Emergency Provider Emergency Medicine; PCP Family Medicine
DX: R55 Syncope and collapse (principal); E78.2 Mixed hyperlipidemia; I10 Essential (primary) hypertension; N17.9 Acute kidney failure, unspecified; E87.6 Hypokalemia
CPT/HCPCS: 36415; 80048; 80053; 80061; 81001; 85025; 93005; 99285

== ENCOUNTER 2024-11-03 07:22 | Outpatient (OUT) | payer OTHER, SELFPAY ==
--- OUTSIDE RECORDS SUMMARY | 2024-10-31 13:04 | XMS_ITS ---
Author Organization [facility] in [place] Address [address] [place] [address] Care Team Providers Care Realty Specialist Name Role Phone Constantine Hess Primary Care Provider [phone] REASON FOR VISIT er update Encounters Encounter Location Date Provider Diagnosis [facility] [address] [facility] [place] [address] 10/31/2024 Constantine Hess Plan Of Treatment No Information Progress Notes * Aleena NOELDOB: [birth year] (59 yo F)Acc No.[id number]:10/31/2024 Patient: Jacqui Aleena GARCIA :1965 A ge:59 Y S ex:Female Address:[address] [place], [address] * true * Date: Generated for Yenii edin/Rosamaria/eTransmitting on: 0 11/03/2024 07:26 AM EDT
--- OUTSIDE RECORDS SUMMARY | 2024-11-01 10:00 | XMS_ITS ---
Author Organization [facility] in [place] Address [address] [place] [address] Care Team Providers Care Coke Wheeler Name Role Phone Constantine Hess Primary Care Provider REASON FOR VISIT ER F/U Encounters Encounter Location Date Provider Diagnosis [facility] [address] [facility] [place] [address] 11/01/2024 Constantine Hess Plan Of Treatment No Information Progress Notes * Aleena NOELDOB: [birth year] (59 yo F)Acc No.[id number]:11/01/2024 UNLOCKED PROGRESS NOTE Progress Note Patient: Ruthann ROBERTSONela Shawna Provider: Lee Hess MD (TTC) :1965 A ge:59 Y S ex:Female Date:11/01/2024 Address:[address] [id number] Subjective: * Chief Complaints: * 1 . ER F/U. * Medical History: Objective: * Vitals: Assessment: Plan: * Treatment: * * Electronic signature of Constantine Hess MD, [id number] on 11/03/2024 at 07:26 AM EDT Sign off status: Pending Visit Status: C ANC (Cancelled) * Provider: Lee Hess MD (TTC) Date: 0 11/01/2024 Generated for Mao jesus/Rosamaria/Jessicaitting on: 0 11/03/2024 07:26 AM EDT
--- OUTSIDE RECORDS SUMMARY | 2024-11-03 07:26 | XMS_ITS | Clinical Summary ---
Author Organization [facility] Address [address] [place] [address] Care Team Providers Care Campaign Analyst Name Role Phone Roberto Hess MD Primary Care Provider [phone] Allergies Active Allergy Reactions Criticality Noted Date [...] Description 09/29/2024 3:00 PM EDT Office Visit [address] [phone] Don Maria MD Uncontrolled hypertension (Primary Dx); CHE (obstructive sleep apnea); Mixed hyperlipidemia; SMITH (dyspnea on exertion); Dry cough 09/03/2024 Orders Only [address] [address] Angella Kiser MA Essential hypertension 08/09/[address] [address] Angella Kiser MA from Last 3 Months [...] to complete this topic Insurance GENERIC COMMERCIAL [facility] Care Teams Campaign Analyst Relationship Specialty Start Date End Date Roberto Hess MD [address] [facility] [place] [address] [address] PCP - General 07/26/24
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
--- OUTSIDE RECORDS SUMMARY | 2024-11-03 07:26 | XMS_ITS | CCD ---
Author Organization [facility] Care Team Providers Care Centerless Grinder Set Up Operator Name Role Phone Donna Hess MD Primary Care Provider [phone] ABRAHAM, DR THOMPSON Admitting Unavailable ABRAHAM, DR [...] Unavailable MD Donna Hess Primary Care Provider [phone] MD Donna Hess Attending Provider MD Ofelia Martinez V Attending Provider Ofelia Martinez V Attending Unavailable Ofelia Martinez V Admitting Unavailable Donna Hess Attending Unavailable Donna Hess Primary Care Unavailable Donna Hess Admitting Unavailable AVA JOHNSON Attending Unavailable AVA JOHNSON Attending Unavailable Allergies Allergy Classification Reported Allergen(s) Allergy Type Date of Onset Reaction(s) Facility (2 sources) Bacitracin; Translations: [BACITRACIN] Drug Allergy 4 Unknown [facility] (1 source) egg white (chicken) allergenic extract Drug Allergy 4 Other: See Comments [facility] (1 source) Bacitracin Drug Allergy 4 [facility] (1 source) Sulfonamides (Antibiotic) Drug allergy (disorder) 2 [facility] (1 source) Misc-Drug Drug allergy (disorder) 2 [facility] (1 source) Lisinopril; Translations: [LISINOPRIL] Drug Allergy 5 [facility] Rep[facility] (1 source) Sulfonamides (Antibiotic); Translations: [SULFA (SULFONAMIDE ANTIBIOTICS)] Propensity to adverse reactions to drug (disorder) 5 [facility] Rep[facility] Medications Current Medications Medication [...] 1 month. 6. Follow-up in 6 months. [facility] Office Visiton 09-29-2024 Follow-up visit [id number] Emiliano Noel 1965 F Date Provider Department Center 09/29/2024 AVA PEREIRA ALONZO Dempsey [facility] Family History Problem Relation Age of Onset Lung disease Mother Diabetes Father Diabetes Brother Heart attack Brother Family Status - Relation Status Age at Mother Father Alive Sister Alive Brother Alive Level of Service:18219 [place] OFFICE/OUTPATIENT ESTABLISHED MOD MDM 30 MIN [facility] 36on 08-20-2024 36 Patient informed her labs are ok. Still not taking amlodipine and says the edema is coming down. Had echo this morning and her BP was 144 systolic. She said that's the highest it's been in awhile. Told her I'd call with echo result when it becomes available. She verbalized understanding. [facility] 36on 08-17-2024 36 Patient called askin g about her labs from last week. She stopped amlodipine after I advised her to last week. Says her BP has been in the 130's systolic. [facility] 36on 08-12-2024 36 Patient's daughter called and I told her to let her mother know to stop amlodipine for now until we heard from Dr. Johnson. [facility] Telephoneon 08-09-2024 Telephone [id number] Emiliano Noel 1965 F Date Provider Department Center 08/09/2024 Denis5-ADELA CALVO ALONZO Martinez Family History Problem Relation Age of Onset Lung disease Mother Diabetes Father Diabetes Brother Heart attack Brother Family Status - Relation Status Age at Mother Father Alive Sister Alive Brother Alive [facility] Office Visiton 07-26-2024 Follow-up visit [id number] Emiliano Noel 1965 F Date Provider Department Center 07/26/2024 367-AVA JOHNSON ALONZO Martinez Family History Problem Relation Age of Onset Lung disease Mother Diabetes Father Diabetes Brother Heart attack Brother Family Status - Relation Status Age at Mother Father Alive Sister Alive Brother Alive Level of Service:21431 [place] OFFICE/OUTPATIENT NEW MODERATE MDM 45 MINUTES [facility] Jay 07-29-2023 L Specimen: [id number] Received: 07/29/23 Status: LIZZ Maldonado Num: [id number] Spec Type: Surgical Subm Dr: Ofelia Martinez Tissues: A BREAST CORE NO CALCS (LT BREAST 6:00) Procedures: HE/2, Gross/Micro L4 Age/ Patient Sex Location Account Attending Physician Aleena Noel 57/F LABELL [id number] Ofelia Martinez MD SPEC NUM: [id number] RECD: 07/29/23 STATUS: LIZZ REIvy NUM: [id number] ONEIL: 07/29/23- SUBM : Ofelia Martinez ENTERED: 07/29/23 [facility] DR: SPEC TYPE: Surgical DEPT: MANISHA LUZ [...] minutes Formalin fixation time: 33 hours Specimen: [id number] Received: 07/29/23 Status: LIZZ Maldonado Num: [id number] Spec Type: Surgical Subm Dr: Ofelia Martinez Tissues: A BREAST CORE NO CALCS (LT BREAST 6:00) Procedures: HE/2, Gross/Micro L4 Patient: Aleena Noel [id number] (Continued) Specimen: [id number] Received: 07/29/23 (Continued) Signed (signature on file) Maryann Rubio MD 07/31/23 1321 Specimen: [id number] Received: 07/29/23 Status: LIZZ Maldonado Num: [id number] Spec Type: Surgical Subm Dr: Ofelia Martinez Tissues: A BREAST CORE NO CALCS ( BREAST 6:00) Procedures: RENARD/Ayde, Med/Saranya L4 Patient: Aleena Noel [id number] (Continued) Specimen: [id number] Received: 07/29/23 (Continued) CPT Codes 96607 Specimen: [id number] Received: 07/29/23 Status: LIZZ Maldonado Num: [id number] Spec Type: Surgical Subm Dr: Ofelia Martinez Tissues: A BREAST CORE NO CALCS (LT BREAST 6:00) Procedures: HE/2, Gross/Micro L4 Patient: Aleena Noel [id number] (Continued) Signed (signature on file) Maryann Rubio MD 07/31/23 1321 Normal [facility] MR breast BI wo/w con CADon 07-17-2023 MR breast BI wo/w con CAD [address] [address] MRI Report Signed Patient: Aleena Noel MR#: [id number] : 1965 Acct:[id number] Age/Sex: 57 / F ADM Date: 07/17/23 Loc: [facility] Room: Type: [facility] Attending [...] All imaged data was reviewed using the Tyros system. The postcontrast images were subtracted and [...] Hudson Jr., D.OTonya07/18/2023 10:01 AM Dictation Location: [facility]-12 Transcribed By: [facility] 07/18/23 1001 Dictated By: Darien Hudson Jr, DO 07/17/23 1549 Signed By: 07/18/[address] [facility] Physician [facility] XR HIP RT INJon 12-21-2021 XR HIP [...] by: OFELIA MARTINEZ Date: 2021-12-21 09:12 Normal [facility] XR LSPINE MIN 4 VIEWSon 11-20 XR [...] by: ALEX VARGAS Date: 2021-12-14 07:06 Normal [facility] CNOVon 08-24-2021 CNOV Office Visit (ORHSMN ) -------- ALEENA NOEL ([id number]) 1965 F Date Time Provider Department 08/24/21 1:00 PM [facility] your visit today, we recorded the following information about you: López Pierson MD 08/24/2021 2:28 PM Signed SHOULDER/ELBOW INITIAL CONSULT SERVICE DATE: 08/24/2021 PCP: Donna Hess MD, MD REFERRING PROVIDER: Donna Hess MD [address] [address] Consult requested for an opinion regarding the evaluation and treatment of the above. My final impression and recommendations will be communicated back to the requesting physician by way of the shared medical record or letter via US mail. CHIEF COMPLAINT: Right and left shoulder follow-up SUBJECTIVE HISTORY OF PRESENT ILLNESS: 56 year old female, qwua-hroy-dimlicha, prior patient of Dr. Hutchinson. Underwent a right reverse total shoulder placement November 2015. Doing excellent no pain no issues, function 90%. 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 Pain with Jobes. Negative speeds negative Ida's. Axillary, Long Thoracic, CN XI, Median, Ulnar, [...] her these (more content not included)... Normal [facility] CNOV Office Visit (NECVS8 ) -------- ALEENA NOEL ([id number]) 1965 F Date Time Provider Department 08/24/21 11:05 AM REKHA HAMM NECVS8 During your visit today, we recorded the following information about you: Pulse Blood pressure Weight Height 80/minute 151/78 69.9 kg 1.6 m Rekha Hamm APRN.LINE ASSEMBLER AIRCRAFT 08/24/2021 11:02 AM Addendum Regarding your visit with Nurse Practitioner Rekha Hamm today at the [facility] we discussed the following: [...] have any questions Rekha Hamm CNP Cerebrovascular [place] Nurse Practitioner [address] [place] [address] Office: [phone] Appointments: [phone] Stroke Signs and Symptoms: *Stroke is a [...] - more information: https://www.heart.org/en /healthy-living/healthy- eating/eat-smart/nutriti on-basi- cs/cfr-yyra-qkm-lifestyl e-recommendations Smoking and Tobacco Use (including e-cigarettes) [...] reduce t (more content not included)... Normal [facility] MRA BRAIN WO IVCONon 022 MRA [...] brain 09/27/2015 and 01/09/2015 TECHNIQUE: Intracranial 3D rhdd-ue-qcdhjs MRA with 2D multiplanar and 3D maximum [...] with minimal flow signal at the base. Trademark Paralegal: [facility] Transcribe Date/Time: Aug 24 2021 9:47A Dictated by : REBECCA RUIZ MD This examination was interpreted and the report reviewed and electronically signed by: BENJA MCCALL MD on Aug 24 2021 1:22PM EST [id number] Normal [facility] XR SHLDR >/=3V AP/LOUISA AP/OTH R [...] radiolucency identified. IMPRESSION: Reversed shoulder arthroplasty satisfactory. Trademark Paralegal: [facility] Transcribe Date/Time: Aug 24 2021 8:03A Dictated by : ELVA SMITH MD This examination was interpreted and the report reviewed and electronically signed by: ELVA SMITH MD on Aug 24 2021 8:06AM EST [id number] Normal [facility] CNPNon 05-29-2021 CNPN Telephone ([facility]) -------- SADIEALEENA ([id number]) 1965 F Date Time Provider Department 05/29/21 GUILLERMO BERRY [facility] During your visit today, we recorded [...] as Dr. Hutchinson no longer is at [facility] [place]. Encouraged to ask for that referral at time of appt~ Agnes Duke, RN 05/29/2021 5:[address] Berry on 09/09/18 OV recommended f/u in 3 yrs with MRA brain w/o contrast. She can f/u with a surgical KEVIN. Joselyn Junior [facility] 05/30/2021 10:47 AM Addendum Called patient back to schedule her with a surgical KEVIN per Dr. Berry's RN's recommendation. Updated patient's insurance per below. [employer]#: [id number] Providers #: [phone] or [phone] [address] [address] [place] [address] Scheduled her on August 24 with Rekha Remy as patient preferred to be seen on Friday or Friday, if necessary. She will access appt details via Chanyouji. I've sent her a Chanyouji message with: 1. Our office number 2. [...] cerebral aneurysm [I67.1] Order(s):MRA BRAIN WO CHEPEON [[id number]] Order #: [id number] FUTURE Prescriptions as of 05/30/2021 - multivitamin [...] Status:Closed by AGNES DUKE on 05/29/21 Normal [facility]22 SARS-CoV-2 (COVID-19) RNA SAÚL+probe Ql (Unsp spec) Not detected Normal NOT DETECTED [facility] Comment on above: Result Comment: This test is not yet approved or cleared by the [place] FDA. When there are no FDA-approved or cleared tests available, and other criteria are met, FDA can make tests available under an emergency access mechanism called an Emergency Use Authorization (EUA). The EUA for this test is supported by the Photo Lab Specialist of Health and Human Service's (HHS's) declaration [...] By: #### [facility] #### [facility] [address] [place] [address] Dr. Aleena Rubio Encounters Encounter Date Encounter Type Care Provider Facility Start: 09-29-2024 End: 09-29-2024 [facility] Start: 07-26-2024 End: 07-26-2024 ambulatory [facility] Start: 07-29-2023 End: 07-29-2023 ambulatory Ofelia Martinez Facility:[facility] Start: 07-29-2023 End: 07-29-2023 ambulatory MD Donna Hess Work Phone: [facility] Work Phone: Start: 07-29-2023 End: 07-29-2023 Departed Referred MD Donna Hess Work Phone: [facility] Start: 07-17-2023 End: 07-17-2023 ambulatory Donna Hess Facility:[facility] Start: 07-17-2023 End: 07-17-2023 ambulatory MD Donna Hess Work Phone: [facility] Work Phone: Start: 07-17-2023 End: 07-17-2023 Patient encounter procedure MD Donna Hess Work Phone: [facility] [address] Work Phone: Start: [...] Author Start: 07-17-2023 MR Breast - bilateral [facility] Start: 07-17-2023 MRI of bilateral breasts with contrast MR breast BI wo/w con CAD [facility] Start: 08-19-2022 Adult depression screening assessment DEPRESSION SCREENING [facility] Start: 12-20-2021 Influenza vaccination INFLUENZA (Season Ended) [facility] Start: 11-15-2018 DIABETES SCREEN DIABETES SCREEN [facility] Start: 08-02-2013 SHINGRIX VACCINE (1 of 2) SHINGRIX VACCINE (1 of 2) [facility] Start: 08-02-2008 COLOGUARD (FIT-DNA) COLOGUARD (FIT-DNA) [facility] Start: 08-02-2008 Colonoscopy COLONOSCOPY [facility] Start: 08-02-2008 COLORECTAL CANCER SCREENING COLORECTAL CANCER SCREENING [facility] Start: 08-02-[address] COLONOGRAPHY [facility] Start: 08-02-2008 FECAL OCCULT BLOOD FECAL OCCULT BLOOD [facility] Start: 08-02-2008 LIPID SCREEN LIPID SCREEN [facility] Start: 08-02-2008 SIGMOIDOSCOPY SIGMOIDOSCOPY [facility] Start: 2003 Mammography MAMMOGRAM [facility] Start: 08-02-1993 HPV TESTING HPV TESTING [facility] Start: 08-02-1984 PAP TESTING PAP TESTING [facility] Start: 08-02-1982 ADULT PREVNAR ADULT PREVNAR [facility] Start: 08-02-1982 TWO PNEUMOVAX 5 YEARS APART PRIOR TO AGE 65 (#1) TWO PNEUMOVAX 5 YEARS APART PRIOR TO AGE 65 (#1) [facility] Start: 08-02-1982 Urine microalbumin profile DTAP,TDAP,TD (1 - Tdap) [facility] Start: 08-02-1981 HEPATITIS C SCREENING HEPATITIS C SCREENING [facility] Start: 08-02-1981 HIV SCREENING HIV SCREENING [facility] Payers Date Payer Category Payer Unknown [id number] 2024 Unknown [id number] 2023 Self-pay 2023 Private Health Insurance [id number] 2020 Private Health Insurance [facility] [employer] [id number] 2020-Present [phone] [address] [address] [place] [address] O [id number] 1965 Unknown [id number] 1965 Unknown [id number] 1965 Unknown [id number] 1961 Unknown [id number] Private Health Insurance [employer] [id number] Unknown Private Pay [facility] [id number] Unknown [id number] Social History Date Type Detail Facility Start: 01-12-2014 Tobacco smoking stat [facility] Never smoked tobacco [facility] Work Phone: Start: 01-12-2014 Tobacco use and exposure Smokeless tobacco non-user [facility] Work Phone: Start: 08-24-2021 Alcohol intake Current drinke r of alcohol (finding) [facility] Start: 11-16-2015 History SDOH Alcohol Comment occasional: twice a week: 2 drinks [facility] Start: 1965 Sex Assigned At Female [facility] Start: 08-14-2021 End: 08-24-2021 Exposure to SARS-CoV-2 (event) Not sure [facility] Medical Equipment Procedure Code Equipment Code Equipment Origin al Text Equipment Identifier Dates Opteform Freeze- Dried 2cc [id number] Start: 11-22-2015 Tray Equinoxe +0 mm Humeral Adapter Reverse Shoulder System - [id number] Start: 11-22-2015 Liner Equinoxe 3 8mm +0mm Humeral Reverse Shoulder - [id number] Start: 11-22-2015 Stem Equinoxe 7m m Humeral Press Fit Primary Shoulder - [id number] Start: 11-22-2015 Component 38mm Glenoid Glenosphere Reverse Shoulder - [id number] Start: 11-22-2015 Plate Equinoxe Standard Glenoid Reverse - [id number] Start: 11-22-2015 Screw Equinoxe 4 .5mm Black 22mm Bone Kit Compression Lock Cap Reverse - [id number] Start: 11-22-2015 Screw Equinoxe 4 .5mm White 18mm Bone Kit Compression Lock Cap Reverse - [id number] Start: 11-22-2015 Screw Equinoxe B one Lock Reverse Shoulder Glenosphere - [id number] Start: 11-22-2015 Screw Equinoxe 4 .5mm Blue 30mm Bone Kit Compression Lock Cap Reverse - [id number] Start: 11-22-2015 Screw Equinoxe 4 .5mm White 18mm Bone Kit Compression Lock Cap Reverse - [id number] Start: 11-22-2015 Kit Screw Revers e Torque Define Shoulder - [id number] Start: 11-22-2015 Clinical Notes 11-22-2015 to 09-29-2024 López Pierson MD - 08/24/2021 1:16 PM EDT Note Date & Type Note Facility 09-29-2024 Note [facility] Cardiology - [facility] Subjective Aleena Noel is a [...] Rfl: amLODIPine (Norva (more content not included)... [facility] 07-26-2024 Note PR Cardiology - [facility] Subjective Aleena Noel is a 58 y.o. year old female patient being seen to establish care. Patient is a self referral for hypertension. Patient has stress test at [facility]. Patient states she has blurry vision x [...] mouth with breakfa (more content not included)... [facility] 12-14-2021 Note PROCEDURE: XR HIP RT 2 [...] authenticated by: ALEX SAM Date: 2021-12-14 07:00 [facility] 08-24-2021 Note HNO ID: [id number] Author: López Pierson MD Service: ? Author Type: Physician Type: Progress Notes Filed: 08/24/2021 2:28 PM Note Text: SHOULDER/ELBOW INITIAL CONSULT SERVICE DATE: 08/24/2021 PCP: Donna Hess MD, MD REFERRING PROVIDER: Donna Hess MD [address] [facility] [address] Consult requested for an opinion regarding the evaluation and treatment of the above. My final impression and recommendations will be communicated back to the requesting physician by way of the shared medical record or letter via US mail. CHIEF COMPLAINT: Right and left shoulder follow-up SUBJECTIVE HISTORY OF PRESENT ILLNESS: 56 year old female, oevm-fkvq-biljowmg, prior patient of Dr. Hutchinson. Underwent a right reverse total shoulder placement November 2015. Doing excellent no pain no issues, function 90%. 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 Pain with Jobes. Negative speeds negative Ida's. Axillary, Long Thoracic, CN XI, Median, Ulnar, [...] these exercises. She can also try some lndc-otv-ldhnppm anti-inflammatories. If these fail to improve over the next 6 to 12 weeks, recommend getting an MRI of that left shoulder. S (more content not included)... [facility] 08-24-2021 History of Present illness Narrative SHOULDER/ELBOW INITIAL CONSULT SERVICE DATE: 08/24/2021 PCP: Donna Hess MD, MD REFERRING PROVIDER: Donna Hess MD [address] [facility] [address] Consult requested for an opinion regarding the evaluation and treatment of the above. My final impression and recommendations will be communicated back to the requesting physician by way of the shared medical record or letter via US mail. CHIEF COMPLAINT: Right and left shoulder follow-up SUBJECTIVE HISTORY OF PRESENT ILLNESS: 56 year old female, rkyc-bzck-tictsluy, prior patient of Dr. Hutchinson. Underwent a right reverse total shoulder placement November 2015. Doing excellent no pain no issues, function 90%. 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 Pain with Jobes. Negative speeds negative Ida's. Axillary, Long Thoracic, CN XI, Median, Ulnar, [...] these exercises. She can also try some cpbu-kam-augpnss anti-inflammatories. If these fail to improve over [...] issues. This note was partially generated using Relevvant voice recognition system and may contain errors of direct chill casting operator. Medical Decision Making López Pierson MD documented in this encounter [facility] 08-24-2021 Note HNO ID: [id number] Author: Rekha Hamm APRN.LINE ASSEMBLER AIRCRAFT Service: ? Author Type: Nurse Practitioner Type: [...] s/p coiling - DVT (deep venous thrombosis) ([facility]) 2013 RUE DVT - H/O cervical spine surgery anterior cervical discectomy and fusion surgery - Lipoma 2012 present currently on the right shoulder - Melanoma ([facility]) 1998 - Septic joint ([facility]) Shoulder s/p debridement PAST SURGICAL HISTORY Procedure [...] vibration. Coordination: Rapid alternating movements symmetric bilaterally. Vbcbqp-nq-blqx, qrez-nu-jywo without dysmetria bilaterally. Reflexes: 2+/4 reflexes symmetric [...] population and warran (more content not included)... [facility] 08-24-2021 Note HNO ID: [id number] Author: JOSE E Reyes) Service: Radiology Author [...] E Treviño) August 24, 2021 9:38 AM [facility] 08-24-2021 Note HNO ID: [id number] Author: RT Hamilton(R) Service: Radiology Author Type: [...] RT Hamilton(R) August 24, 2021 7:56 AM [facility] 11-22-2015 History of Past i llness [...] oxacillin IV 2g q4h. PICC placed for halfway antibiotics Confusion 12/25/2013 11/30/2015 Overview: She was [...] : Lipoma present on the right shoulder. [place] sized last year and has grown to [...] f/b 100mg bid. Plan: CT brain at [facility] - no acute bleed Awaiting OSH records Acute thrombosis of right axillary vein 12/24/19 14 11/30/2015 Acute thrombosis of right brachial vein 12/24/19 14 11/30/2015 documented as of this encounter (statuses as of 08/24/2021) [facility] Diagnosis Status post reverse arthroplasty of right shoulder- Primary Rotator cuff tendinitis, left Impingement syndrome of left shoulder Other affections of shoulder region, not elsewhere classified documented in this encounter [facility] noteNo assessment [facility] Work Phone: Advance Directives No Advanced Directives Records FoundDocuments on File Type Date Recorded Patient Cut Off Operator Scorer Expl anation Advance Directive(s) 11/16/2015 9:27 AM [...] or prosecute any alcohol or drug abuse patient.[facility] Reason for Visit (unrecogniz ed section and content) Reason Comments Established Patient Follow Up Care Teams (unrecognized sec tion and content) Centerless Grinder Set Up Operator Relationship Specialty Start Date End Date Donna Hess MD [address] [place] [address] PCP - General 12/23/13 Team Status: Active [...] section and content) DATE CREATED AUTHOR 08/25/2021 [facility] DATE CREATED AUTHOR AUTHOR'S ORGANIZ ATION 12/25/2021 [facility] DATE CREATED AUTHOR AUTHOR'S ORGANIZ ATION 08/01/2023 [facility] DATE CREATED AUTHOR AUTHOR'S ORGANIZ ATION 10/02/2024 [facility] Goals (unrecognized section and content) Goals [...] BE BASED ON THE PRIMARY CLINICAL RECORDS. [facility]. provides no warranty or guarantee of the accuracy or completeness of information in this document.
[2024-11-03 07:44] LABS: Hematocrit 38.6 % (36.0-48.0); Hemoglobin 13.1 g/dL (12.0-16.0); Immature Granulocytes Abs Auto 0.01 10^3/uL (0.00-0.03); Immature Granulocytes Pct Auto 0.2 % (0.0-0.5); Lymphocytes Absolute Auto 1.1 10^3/uL (1.2-3.8); Mean Corpuscular HGB Conc 33.9 g/dL (29.9-35.2); Mean Corpuscular Hemoglobin 29.4 pg (26.7-34.0); Mean Corpuscular Volume 86.7 fL (81.0-99.0); Platelet Count 169 10^3/uL (150-450); Red Blood Count 4.45 10^6/uL (4.20-5.40); White Blood Count 4.7 10^3/uL (4.0-11.0)
[2024-11-03 13:35] LABS: Alanine Aminotransferase 34 U/L (14-59); Albumin Globulin Ratio 1.3; Albumin Level 3.8 g/dL (3.4-5.0); Alkaline Phosphatase 85 U/L (46-116); Anion Gap 11.7; Aspartate Amino Transferase 22 U/L (15-37); Blood Urea Nitrogen 22.0 mg/dL (7.0-18.0); Calcium 9.4 mg/dL (8.5-10.1); Carbon Dioxide 29.6 mmol/L (21.0-32.0); Chloride 109 mmol/L (98-107); Estimated GFR (African America >60 (>=60 mL/min/1.73m^2); Estimated GFR (Non-African Ame 54 (>=60 mL/min/1.73m^2); Globulin 3.0 g/dL; Glucose 97 mg/dL (74-106); Potassium 4.3 mmol/L (3.5-5.1); Sodium 146 mmol/L (136-145); Total Protein 6.8 g/dL (6.4-8.2)
== END 2024-11-03 07:23 | disposition home or self-care (01) ==
LOC: LAB 07:24
PROVIDERS: PCP Family Medicine; Visit Provider Family Medicine
DX: Z00.00 Encounter for general adult medical examination without abnormal findings (principal)
CPT/HCPCS: 36415; 80053; 85025

== ENCOUNTER 2024-11-29 15:41 | Outpatient (OUT) | payer OTHER, SELFPAY ==
--- OUTSIDE RECORDS SUMMARY | 2024-11-16 09:00 | XMS_ITS ---
Author Organization The [facility] in [place] Address [address] [place] [address] Care Team Providers Care Cisco Certified Network Professional Name Role Phone Constantine Hess Primary Care Provider REASON FOR VISIT shots Encounters Encounter Location Date Provider Diagnosis [facility] [address] [facility] [place] [address] 11/16/2024 Constantine Hess Cervical disc herniation M50.20 Assessments Encounter Date Diagnosis (ICD Code) Assessment Notes Treatment Notes Treatment Clinical Notes Section Notes 11/16/2024 Cervical disc herniation (ICD-10 - M50.20) Plan Of Treatment No Information Medications Administered Medication Instructions Date of Administration Dosage Notes Ketorolac Tromethamine 11/16/2024 60 mg Orphenadrine Citrate 11/16/2024 60 mg Progress Notes * Aleena NOELDOB: [birth year] (59 yo F)Acc No.[id number]:11/16/2024 Progress Note Patient: Ruthann ROBERTSONheath Matos Provider: Lee Hess ([facility])MD :1965 A ge:59 Y S ex:Female Date:11/16/2024 Address:[address] [place] Check In:01:07 PM ESTCheck O ut:01:40 PM EST Subjective: * Chief Complaints: * S hots * HPI: G eneral: nurse visit for injections. * Active Problem List M54.12 Cervical radiculopat hy Modified On:04/25/2023 Status:confirmed F41.9 Anxiety Modified On:04/25/2023 Status:confirmed I82.409 DVT (deep venous thr ombosis) Modified On:04/25/2023 Status:confirmed G43.909 Migraine Modified On:04/25/2023 Status:confirmed L73.2 Hidradenitis suppura tiva Modified On:04/25/2023U Status:confirmed D25.9 Leiomyoma of uterus Modified On:04/25/2023 Status:confirmed I67.1 Cerebral aneurysm Modified On:04/25/2023 Status:confirmed L30.1 Dyshidrotic eczema Modified On:04/25/2023 Status:confirmed M50.20 Cervical disc hernia tion Modified On:04/25/2023 Status:confirmed M25.551 Right hip pain Modified On:04/25/2023 Status:confirmed F32.A Depression Modified On:04/25/2023 Status:confirmed J21.9 Acute bronchiolitis Modified On:04/25/2023 Status:confirmed L03.90 Cellulitis Modified On:07/10/2023 Status:confirmed J30.2 Seasonal allergic rh initis Modified On:12/12/2023U Status:confirmed I10 Hypertension Modified On:06/03/2024U Status:confirmed Z00.00 Well adult Modified On:06/03/2024U Status:confirmed D72.9 Abnormal white blood cell (WBC) count Modified On:06/07/2024U Status:confirmed G47.33 CHE (obstructive sle ep apnea) Modified On:07/26/2024 Status:confirmed * Medical History: * Surgical History: * Hospitalization/Major Diagno stic Procedure: * Medications: Objective: * Vitals: Assessment: * Assessment: 1. C ervical disc herniation - M50.20 (Primary) Plan: * Treatment: * Therapeutic Injections: Ketorolac Tromethamine : 60 mg (Route: Intramuscular) given by Cleo Sawyer , AW on right deltoid (Cervical disc herniation) Orphenadrine Citrate : 60 mg (Route: Intramuscular) given by Cleo Sawyer , KRISTAL on left deltoid (Cervical disc herniation) * Procedure Codes: 9 6372 THERAP.INJ. OF MED. INTRAMUSCULAR OR [id number] TORADOL, PER 15 MG, Units: 4.00 J2360 NORFLEX,UP TO 60MG. * * Sign off status: Completed Visit Status: C HK (Check Out) true * Provider: Lee Hess (TTC)MD Date: 0 11/16/2024 Generated for Mao jesus/Rosamaria/Jessicaitting on: 0 11/29/2024 03:45 PM EDT History and Physical Notes * HPI (History of Present Illness) Category Sub-Category Detail Notes Category Not es General nurse visit for injections
--- OUTSIDE RECORDS SUMMARY | 2024-11-18 04:45 | XMS_ITS ---
Author Organization The [facility] in [place] Address [address] [place] [address] Care Team Providers Care Supervisor Tunnel Heading Name Role Phone Constantine Hess Primary Care Provider [phone] Allergies Allergen (clinical drug ingredient) Drug/Non Drug [...] Notes Patient is a nonsmoker Vital Signs Blood pressure systolic 180 mm Hg 11/19/19 25 Blood pressure diastolic 102 mm Hg 025 Height 63 in 11/18/2024 Weight 175.8 lbs 11/18/2024 BMI 31.14 kg/m2 11/18/2024 Encounters Encounter Location Date Provider Diagnosis [facility] [address] [place] [address] 11/18/2024 Constantine Hoy Flank pain R10.9 Assessments [...] * Aleena NOELDOB: [birth year] (59 yo F)Acc No.[id number]:11/18/2024 Progress Note Patient: Aleena ROBERTSON Provider: Lee Hess ([facility])MD :1965 A ge:59 Y S ex:Female Date:11/18/2024 Address:[facility] [address], [place] Check In:08:38 AM ESTCheck O ut:09:26 AM [...] WO MICRO * Preventive Medicine: Screenings/Counseling: B TX ACTION PLAN Above Normal BMI Follow-up D ietary management education, guidance, and counseling * * Sign off status: Completed Visit Status: C HK (Check Out) true * Provider: Lee Hess (TTC)MD Date: 0 11/18/2024 Generated for Printi ng/Faxing/eTransmitting on: 0 11/29/2024 03:45 PM EDT History [...]
--- OUTSIDE RECORDS SUMMARY | 2024-11-29 05:10 | XMS_ITS ---
Author Organization The [facility] in [place] Address [address] [place] [address] Care Team Providers Care Mobile Sales Expert Name Role Phone Constantine Hess Primary Care Provider REASON FOR VISIT back pain Encounters Encounter Location Date Provider Diagnosis [facility] [address] [facility] [place] [address] 11/29/2024 Constantine Hess Flank pain R10.9 Assessments Encounter Date Diagnosis (ICD Code) Assessment Notes Treatment Notes Treatment Clinical Notes Section Notes 11/29/2024 Flank pain (ICD-10 - R10.9) Plan Of Treatment Pending Test Test Name Order Date US KIDNEYS BLADDER 11/29/2024 XR lumbar spine 2-3V 11/29/2024 Progress Notes * Aleena NOELDOB: [birth year] (59 yo F)Acc No.[id number]:11/29/2024 Patient: Jacqui ELISEOBONITAAleena :1965 A ge:59 Y S ex:Female Address:[address] [place], [address] Subjective: * Chief Complaints: * B ack pain * Medical History: * Surgical History: * Hospitalization/Major Diagno stic Procedure: * Medications: Objective: * Vitals: * Physical Examination: Assessment: * Assessment: 1. F lank pain - R10.9 (Primary) Plan: * Treatment: ?Imaging: XR lumbar spine 2-3V * Procedure Codes: * true * Date: Generated for Mao jesus/Rosamaria/Jennifer on: 0 11/29/2024 03:44 PM EDT
--- OUTSIDE RECORDS SUMMARY | 2024-11-29 15:44 | XMS_ITS | Encounter Summary ---
Author Organization [facility] Address [address] [place] [address] Care Team Providers Care Tyre Retreader Name Role Phone Roberto Hess MD Primary Care Provider [phone] Source Comments In the event this information is protected by the Federal Confidentiality of Alcohol and Drug AbusePatient Records regulations: The Federal rules restrict any use of the information to criminally investigate or prosecute any alcohol or drug abuse patient.[facility] Encounter Details Date Type Department Care Team (Late st Contact Info) Description 11/11/2015 Patient Msg Medical Records [address] [place] [address] Provider, Cc RE: Patient Registration Completed Social [...] Author No 10/14/2014 9:00 AM Jaime Weller APRN.CREDIT ADMINISTRATION SPECIALIST * Are you blind or do you have serious difficulty seeing, even when wearing glasses? Answer Date of Assessment Author No 10/14/2014 9:00 AM Jaime Weller APRN.CREDIT ADMINISTRATION SPECIALIST * Do you have serious difficulty walking or climbing stairs? Answer Date of Assessment Author No 10/14/2014 9:00 AM Jaime Weller APRN.CREDIT ADMINISTRATION SPECIALIST * Do you have difficulty dressing or bathing? Answer Date of Assessment Author No 10/14/2014 9:00 AM Jaime Weller APRN.CREDIT ADMINISTRATION SPECIALIST * Because of a physical, mental, or emotional condition, do you have difficulty doing errands alone such as visiting a doctor's office or shopping? Answer Date of Assessment Author No 10/14/2014 9:00 AM Jaime Weller APRN.CREDIT ADMINISTRATION SPECIALIST documented as of this encounter Mental Status * Because of a physical, mental, or emotional condition, do you have serious difficulty concentrating, remembering, or making decisions? Answer Entry Date Author No 10/14/2014 9:00 AM Jaime Weller APRN.CREDIT ADMINISTRATION SPECIALIST documented in this encounter Plan of Treatment Not on file documented as of this encounter Visit Diagnoses Not on filedocumented in this encounter Care Teams Tyre Retreader Relationship Specialty Start Date End Date Roberto Hess MD [address] [place] [address] PCP - General 12/23/13 documented as of this encounter
--- OUTSIDE RECORDS SUMMARY | 2024-11-29 15:44 | XMS_ITS | Encounter Summary ---
Author Organization [facility] Address [address] [place] [address] Care Team Providers Care Strand Buncher Fine Wire Name Role Phone Roberto Hess MD Primary Care Provider [phone] Source Comments In the event this information is protected by the Federal Confidentiality of Alcohol and Drug AbusePatient Records regulations: The Federal rules restrict any use of the information to criminally investigate or prosecute any alcohol or drug abuse patient.[facility] Encounter Details Date Type Department Care Team (Late st Contact Info) Description 12/06/2014 Patient Msg Medical Records [address] [place] [address] Provider, [facility] Procedure Social [...] Author No 10/14/2014 9:00 AM Jaime Weller APRN.RACING BOARD MARKER * Are you blind or do you have serious difficulty seeing, even when wearing glasses? Answer Date of Assessment Author No 10/14/2014 9:00 AM Jaime Weller APRN.RACING BOARD MARKER * Do you have serious difficulty walking or climbing stairs? Answer Date of Assessment Author No 10/14/2014 9:00 AM Jaime Weller APRN.RACING BOARD MARKER * Do you have difficulty dressing or bathing? Answer Date of Assessment Author No 10/14/2014 9:00 AM Jaime Weller APRN.RACING BOARD MARKER * Because of a physical, mental, or emotional condition, do you have difficulty doing errands alone such as visiting a doctor's office or shopping? Answer Date of Assessment Author No 10/14/2014 9:00 AM Jaime Weller APRN.RACING BOARD MARKER documented as of this encounter Mental Status * Because of a physical, mental, or emotional condition, do you have serious difficulty concentrating, remembering, or making decisions? Answer Entry Date Author No 10/14/2014 9:00 AM Jaime Weller APRN.RACING BOARD MARKER documented in this encounter Plan of Treatment Not on file documented as of this encounter Visit Diagnoses Not on filedocumented in this encounter Care Teams Strand Buncher Fine Wire Relationship Specialty Start Date End Date Roberto Hess MD [address] [place] [address] PCP - General 12/23/13 documented as of this encounter
--- OUTSIDE RECORDS SUMMARY | 2024-11-29 15:44 | XMS_ITS | Encounter Summary ---
Author Organization [facility] Address [address] [place] [address] Care Team Providers Care Central Supply Clerk Name Role Phone Roberto Hess MD Primary Care Provider [phone] Source Comments In the event this information is protected by the Federal Confidentiality of Alcohol and Drug AbusePatient Records regulations: The Federal rules restrict any use of the information to criminally investigate or prosecute any alcohol or drug abuse patient.[facility] Encounter Details Date Type Department Care Team (Late st Contact Info) Description 11/10/2015 Patient Msg Medical Records [address] [place] [address] Provider, [facility] Procedure Social [...] Author No 10/14/2014 9:00 AM Jaime Weller APRN.ETHYLENE PLANT HELPER * Are you blind or do you have serious difficulty seeing, even when wearing glasses? Answer Date of Assessment Author No 10/14/2014 9:00 AM Jaime Weller APRN.ETHYLENE PLANT HELPER * Do you have serious difficulty walking or climbing stairs? Answer Date of Assessment Author No 10/14/2014 9:00 AM Jaime Weller APRN.ETHYLENE PLANT HELPER * Do you have difficulty dressing or bathing? Answer Date of Assessment Author No 10/14/2014 9:00 AM Jaime Weller APRN.ETHYLENE PLANT HELPER * Because of a physical, mental, or emotional condition, do you have difficulty doing errands alone such as visiting a doctor's office or shopping? Answer Date of Assessment Author No 10/14/2014 9:00 AM Jaime Weller APRN.ETHYLENE PLANT HELPER documented as of this encounter Mental Status * Because of a physical, mental, or emotional condition, do you have serious difficulty concentrating, remembering, or making decisions? Answer Entry Date Author No 10/14/2014 9:00 AM Jaime Weller APRN.ETHYLENE PLANT HELPER documented in this encounter Plan of Treatment Not on file documented as of this encounter Visit Diagnoses Not on filedocumented in this encounter Care Teams Central Supply Clerk Relationship Specialty Start Date End Date Roberto Hess MD [address] [place] [address] PCP - General 12/23/13 documented as of this encounter
--- OUTSIDE RECORDS SUMMARY | 2024-11-29 15:44 | XMS_ITS | Encounter Summary ---
Author Organization [facility] Address [address] [place] [address] Care Team Providers Care Cloth Finishing Range Back Tender Name Role Phone Roberto Hess MD Primary Care Provider [phone] Source Comments In the event this information is protected by the Federal Confidentiality of Alcohol and Drug AbusePatient Records regulations: The Federal rules restrict any use of the information to criminally investigate or prosecute any alcohol or drug abuse patient.[facility] Encounter Details Date Type Department Care Team (Late st Contact Info) Description 11/10/2015 Patient Msg Medical Records [address] [place] [address] Provider, [facility] Procedure Social [...] Author No 10/14/2014 9:00 AM Jaime Weller APRN.CAGE MAKER MACHINE * Are you blind or do you have serious difficulty seeing, even when wearing glasses? Answer Date of Assessment Author No 10/14/2014 9:00 AM Jaime Weller APRN.CAGE MAKER MACHINE * Do you have serious difficulty walking or climbing stairs? Answer Date of Assessment Author No 10/14/2014 9:00 AM Jaime Weller APRN.CAGE MAKER MACHINE * Do you have difficulty dressing or bathing? Answer Date of Assessment Author No 10/14/2014 9:00 AM Jaime Weller APRN.CAGE MAKER MACHINE * Because of a physical, mental, or emotional condition, do you have difficulty doing errands alone such as visiting a doctor's office or shopping? Answer Date of Assessment Author No 10/14/2014 9:00 AM Jaime Weller APRN.CAGE MAKER MACHINE documented as of this encounter Mental Status * Because of a physical, mental, or emotional condition, do you have serious difficulty concentrating, remembering, or making decisions? Answer Entry Date Author No 10/14/2014 9:00 AM Jaime Weller APRN.CAGE MAKER MACHINE documented in this encounter Plan of Treatment Not on file documented as of this encounter Visit Diagnoses Not on filedocumented in this encounter Care Teams Cloth Finishing Range Back Tender Relationship Specialty Start Date End Date Roberto Hess MD [address] [place] [address] PCP - General 12/23/13 documented as of this encounter
--- OUTSIDE RECORDS SUMMARY | 2024-11-29 15:44 | XMS_ITS | Encounter Summary ---
Author Organization [facility] Address [address] [place] [address] Care Team Providers Care Marketing Production Manager Name Role Phone Roberto Hess MD Primary Care Provider [phone] Source Comments In the event this information is protected by the Federal Confidentiality of Alcohol and Drug AbusePatient Records regulations: The Federal rules restrict any use of the information to criminally investigate or prosecute any alcohol or drug abuse patient.[facility] Encounter Details Date Type Department Care Team (Late st Contact Info) Description 08/22/2015 Patient Msg Orthopaedics [address] [id number] Wilman Hutchinson MD, PhD [address] [place] [address] RE: Request an Appointment Social History Tobacco [...] No 10/14/2014 9:00 AM EDT Jaime Jamil, PERSONNEL COUNSELOR.CARPET INSPECTOR FINISHED * Are you blind or do you have serious difficulty seeing, even when wearing glasses? Answer Date of Assessment Author No 10/14/2014 9:00 AM EDT Jaime Jamil, PERSONNEL COUNSELOR.CARPET INSPECTOR FINISHED * Do you have serious difficulty walking or climbing stairs? Answer Date of Assessment Author No 10/14/2014 9:00 AM [facility] Jaime Jamil APRN.CARPET INSPECTOR FINISHED * Do you have difficulty dressing or bathing? Answer Date of Assessment Author No 10/14/2014 9:00 AM Jaime Weller, PERSONNEL COUNSELOR.CARPET INSPECTOR FINISHED * Because of a physical, mental, or emotional condition, do you have difficulty doing errands alone such as visiting a doctor's office or shopping? Answer Date of Assessment Author No 10/14/2014 9:00 AM EDT Jaime Jamil, PERSONNEL COUNSELOR.CARPET INSPECTOR FINISHED documented as of this encounter Mental Status * Because of a physical, mental, or emotional condition, do you have serious difficulty concentrating, remembering, or making decisions? Answer Entry Date Author No 10/14/2014 9:00 AM Jaime Weller, PERSONNEL COUNSELOR.CARPET INSPECTOR FINISHED documented in this encounter Plan of Treatment Not on file documented as of this encounter Visit Diagnoses Not on filedocumented in this encounter Care Teams Marketing Production Manager Relationship Specialty Start Date End Date Roberto Hess MD [address] [place] [address] PCP - General 12/23/13 documented as of this encounter
--- OUTSIDE RECORDS SUMMARY | 2024-11-29 15:44 | XMS_ITS | Encounter Summary ---
Author Organization [facility] Address [address] [place] [address] Care Team Providers Care Recycling Manager Name Role Phone Roberto Hess MD Primary Care Provider [phone] Source Comments In the event this information is protected by the Federal Confidentiality of Alcohol and Drug AbusePatient Records regulations: The Federal rules restrict any use of the information to criminally investigate or prosecute any alcohol or drug abuse patient.[facility] Encounter Details Date Type Department Care Team (Late st Contact Info) Description 11/09/2015 Patient Msg Medical Records [address] [place] [address] Provider, Ccf please do SRINIVAS for prep [...] Author No 10/14/2014 9:00 AM Jaime Weller APRN.CONCHE LOADER AND UNLOADER * Are you blind or do you have serious difficulty seeing, even when wearing glasses? Answer Date of Assessment Author No 10/14/2014 9:00 AM Jaime Weller APRN.CONCHE LOADER AND UNLOADER * Do you have serious difficulty walking or climbing stairs? Answer Date of Assessment Author No 10/14/2014 9:00 AM Jaime Weller APRN.CONCHE LOADER AND UNLOADER * Do you have difficulty dressing or bathing? Answer Date of Assessment Author No 10/14/2014 9:00 AM Jaime Weller APRN.CONCHE LOADER AND UNLOADER * Because of a physical, mental, or emotional condition, do you have difficulty doing errands alone such as visiting a doctor's office or shopping? Answer Date of Assessment Author No 10/14/2014 9:00 AM Jaime Weller APRN.CONCHE LOADER AND UNLOADER documented as of this encounter Mental Status * Because of a physical, mental, or emotional condition, do you have serious difficulty concentrating, remembering, or making decisions? Answer Entry Date Author No 10/14/2014 9:00 AM Jaime Weller APRN.CONCHE LOADER AND UNLOADER documented in this encounter Plan of Treatment Not on file documented as of this encounter Visit Diagnoses Not on filedocumented in this encounter Care Teams Recycling Manager Relationship Specialty Start Date End Date Roberto Hess MD [address] [place] [address] PCP - General 12/23/13 documented as of this encounter
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
--- OUTSIDE RECORDS SUMMARY | 2024-11-29 15:45 | XMS_ITS | Clinical Summary ---
Author Organization [facility] Address [address] [place] [address] Care Team Providers Care Air Drill Operator Name Role Phone Roberto Hess MD Primary Care Provider [phone] Allergies Active Allergy Reactions Criticality Noted Date [...] in the morning. 90 tablet 3 5 026 Active valsartan (Diovan) 320 mg tabletIndications: Uncontrolled hypertension Take 1 tablet (320 mg) by mouth in the morning. 90 tablet 3 5 026 Active hydroCHLOROthiazid e (HYDRODiuril) 25 mg tabletIndications: Uncontrolled hypertension Take 1 tablet (25 mg) by mouth in the morning. 90 tablet 3 5 026 Active atorvastatin (Lipitor) 20 mg tabletIndications: Mixed hyperlipidemia Take 1 tablet (20 mg) by mouth at bedtime. 90 tablet 3 5 026 Active carvedilol (Coreg) 25 mg tabletIndications: Benign hypertensive heart disease without congestive heart failure Take 1 tablet (25 mg) by mouth with breakfast and with evening meal. STOP METOPROLOL 180 tablet 3 5 028 Active Active Problems Problem Noted Date Diagnosed [...] Encounters Date Type Department Care Team Description 11/08/[address] [phone] Kate Roche MA 09/29/2024 3:00 PM EDT Office Visit [address] [address] Don Maria MD Uncontrolled hypertension (Primary Dx); CHE (obstructive sleep apnea); Mixed hyperlipidemia; SMITH (dyspnea on exertion); Dry cough 09/03/2024 Orders Only [address] [phone] Angella Kiser MA Essential hypertension from Last 3 Months Family History Medical [...] to complete this topic Insurance [facility] Care Teams Air Drill Operator Relationship Specialty Start Date End Date Roberto Hess MD [address] [place] [address] PCP - General 07/26/24
--- OUTSIDE RECORDS SUMMARY | 2024-11-29 15:45 | XMS_ITS | Encounter Summary ---
Author Organization [facility] Address [address] [place] [address] Care Team Providers Care Backend Developer Name Role Phone Roberto Hess MD Primary Care Provider [phone] Source Comments In the event this information is protected by the Federal Confidentiality of Alcohol and Drug AbusePatient Records regulations: The Federal rules restrict any use of the information to criminally investigate or prosecute any alcohol or drug abuse patient.[facility] Encounter Details Date Type Department Care Team (Late st Contact Info) Description 09/30/2014 Patient Msg Medical Records [address] [place] [address] Provider, Cc RE: Patient Registration Completed Social [...] on filedocumented in this encounter Care Teams Backend Developer Relationship Specialty Start Date End Date Roberto Hess MD [address] [place] [id number] PCP - General 12/23/13 documented as of this encounter
--- OUTSIDE RECORDS SUMMARY | 2024-11-29 15:45 | XMS_ITS | Clinical Summary ---
Author Organization [facility] Address [address], [address] [place] [address] Care Team Providers Care Meteorological Observer Name Role Phone Roberto Hess MD Primary Care Provider [phone] Allergies Active Allergy Reactions Criticality Noted Date [...] 9:53 PM 12/03/2013 9:08 PM Care Teams Meteorological Observer Relationship Specialty Start Date End Date Roberto Hess MD [address] [place] [address] PCP - General 12/15/13
--- OUTSIDE RECORDS SUMMARY | 2024-11-29 15:45 | XMS_ITS | Encounter Summary ---
Author Organization [facility] Address [address] [place] [address] Care Team Providers Care Boiler Out Name Role Phone Roberto Hess MD Primary Care Provider [phone] Source Comments In the event this information is protected by the Federal Confidentiality of Alcohol and Drug AbusePatient Records regulations: The Federal rules restrict any use of the information to criminally investigate or prosecute any alcohol or drug abuse patient.[facility] Encounter Details Date Type Department Care Team (Late st Contact Info) Description 12/06/2014 Patient Msg Medical Records [address] [place] [address] Provider, [facility] Procedure Social [...] Author No 10/14/2014 9:00 AM Jaime Weller APRN.TC OPERATOR * Are you blind or do you have serious difficulty seeing, even when wearing glasses? Answer Date of Assessment Author No 10/14/2014 9:00 AM Jaime Weller APRN.TC OPERATOR * Do you have serious difficulty walking or climbing stairs? Answer Date of Assessment Author No 10/14/2014 9:00 AM Jaime Weller APRN.TC OPERATOR * Do you have difficulty dressing or bathing? Answer Date of Assessment Author No 10/14/2014 9:00 AM Jaime Weller APRN.TC OPERATOR * Because of a physical, mental, or emotional condition, do you have difficulty doing errands alone such as visiting a doctor's office or shopping? Answer Date of Assessment Author No 10/14/2014 9:00 AM Jaime Weller APRN.TC OPERATOR documented as of this encounter Mental Status * Because of a physical, mental, or emotional condition, do you have serious difficulty concentrating, remembering, or making decisions? Answer Entry Date Author No 10/14/2014 9:00 AM Jaime Weller APRN.TC OPERATOR documented in this encounter Plan of Treatment Not on file documented as of this encounter Visit Diagnoses Not on filedocumented in this encounter Care Teams Boiler Out Relationship Specialty Start Date End Date Roberto Hess MD [address] [place] [address] PCP - General 12/23/13 documented as of this encounter
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
--- OUTSIDE RECORDS SUMMARY | 2024-11-29 15:45 | XMS_ITS | Encounter Summary ---
Author Organization [facility] Address [address] [place] [address] Care Team Providers Care County Health Officer Name Role Phone Roberto Hess MD Primary Care Provider [phone] Source Comments In the event this information is protected by the Federal Confidentiality of Alcohol and Drug AbusePatient Records regulations: The Federal rules restrict any use of the information to criminally investigate or prosecute any alcohol or drug abuse patient.[facility] Encounter Details Date Type Department Care Team (Late st Contact Info) Description 12/31/2014 Patient Msg Medical Records [address] [place] [address] Provider, Cc RE: Patient Registration Completed Social [...] Author No 10/14/2014 9:00 AM Jaime Weller APRN.ROTARY RIG ENGINE OPERATOR * Are you blind or do you have serious difficulty seeing, even when wearing glasses? Answer Date of Assessment Author No 10/14/2014 9:00 AM Jaime Weller APRN.ROTARY RIG ENGINE OPERATOR * Do you have serious difficulty walking or climbing stairs? Answer Date of Assessment Author No 10/14/2014 9:00 AM Jaime Weller APRN.ROTARY RIG ENGINE OPERATOR * Do you have difficulty dressing or bathing? Answer Date of Assessment Author No 10/14/2014 9:00 AM Jaime Weller APRN.ROTARY RIG ENGINE OPERATOR * Because of a physical, mental, or emotional condition, do you have difficulty doing errands alone such as visiting a doctor's office or shopping? Answer Date of Assessment Author No 10/14/2014 9:00 AM Jaime Weller APRN.ROTARY RIG ENGINE OPERATOR documented as of this encounter Mental Status * Because of a physical, mental, or emotional condition, do you have serious difficulty concentrating, remembering, or making decisions? Answer Entry Date Author No 10/14/2014 9:00 AM Jaime Weller APRN.ROTARY RIG ENGINE OPERATOR documented in this encounter Plan of Treatment Not on file documented as of this encounter Visit Diagnoses Not on filedocumented in this encounter Care Teams County Health Officer Relationship Specialty Start Date End Date Roberto Hess MD [address] [place] [address] PCP - General 12/23/13 documented as of this encounter
--- NOTE | 2024-11-29 15:48 | XR_ITS ---
[facility] [place] [id number] Patient Name: JEVON NOEL MRN: [id number] date: 1965 Sex: F Assigned Patient Location: [facility] Current Patient Location: [facility] Accession/Order Number: [id number] Exam Date: 11/29/2024 16:06 Report Date: 11/29/2024 16:06 At the request of: DONNA ROSARIO MD Procedure: XR lumbar spine 2-3V LUMBAR SPINE - 2 views CLINICAL HISTORY: Flank Pain COMPARISON: Lumbar spine 12/13/2021 FINDINGS: Vertebral heights appear maintained. No significant disc space narrowing. Mild endplate and facet joint degenerative change. XR/XR lumbar spine 2-3V IMPRESSION: MILD DEGENERATIVE CHANGES WITHOUT SIGNIFICANT DISC HEIGHT LOSS. Impression dictated by: Darien Hudson Jr. [email or web address] 11/29/2024 4:06 PM Dictation Location: [place] [address] Electronically authenticated by: [id number] Y Date: 11/29/2024 16:06
== END 2024-11-29 15:42 | disposition home or self-care (01) ==
LOC: RAD 15:42
PROVIDERS: PCP Family Medicine; Visit Provider Family Medicine
DX: R10.9 Unspecified abdominal pain (principal); M51.369 Other intervertebral disc degeneration, lumbar region without mention of lumbar back pain or lower extremity pain
CPT/HCPCS: 72100

== ENCOUNTER 2024-12-01 06:53 | Outpatient (OUT) | payer OTHER, SELFPAY ==
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
--- OUTSIDE RECORDS SUMMARY | 2024-11-29 05:10 | XMS_ITS ---
Author Organization The [facility] in [place] Address [address] [place] [address] Care Team Providers Care Internet Sales Manager Name Role Phone Constantine Rosario Primary Care Provider [phone] Results Component Value Reference Range Notes XR lumbar spine 2-3V Reviewed date:11/29/2024 07:41:10 PM Interpretation: Performing Lab: Notes/Report: Source Facility: [place] [address] XRay Report Signed Patient: ALEENA NOEL MR#: [id number] : 1965 Acct:[id number] Age/Sex: 59 / F ADM Date: 11/29/24 Loc: RAD Attending Dr: Roberto Rosario M.D. Ordering Physician: Roberto Rosario M.D. Date of Service: 11/29/24 Procedure(s): XR lumbar spine 2-3V Accession Number(s): [id number] cc: Roberto Rosario M.D. [address] [address] Patient Name: ALEENA NOEL MRN: [id number] date: 1965 Sex: F Assigned Patient Location: RAD Current Patient Location: RAD Accession/Order Number: [id number] Exam Date: 11/29/2024 16:06 Report Date: 11/29/2024 16:06 At the request of: ROBERTO ROSARIO MD Procedure: XR lumbar spine 2-3V LUMBAR SPINE - 2 views CLINICAL HISTORY: Flank Pain COMPARISON: Lumbar spine 12/13/2021 FINDINGS: Vertebral heights appear maintained. No significant disc space narrowing. Mild endplate and facet joint degenerative change. XR/XR lumbar spine 2-3V IMPRESSION: MILD DEGENERATIVE CHANGES WITHOUT SIGNIFICANT DISC HEIGHT LOSS. Impression dictated by: Darien Hudson Jr., D.O. 11/29/2024 4:06 PM Dictation Location: [place] [address] Electronically authenticated by: [id number] Y Date: 11/29/2024 16:06 Dictated By: Darien Hudson M.D. Signed By: 11/29/24 1609 DD/ 05 TD/TT: [employer] Grower: [place] [address] XRay Report Signed Patient: CONNOR NOEL MR#: [id number] : 1965 Acct:[id number] Age/Sex: 59 / F ADM Date: 11/29/24 Loc: RAD Attending Dr: Roberto Rosario M.D. Ordering Physician: Roberto Rosario M.D. Date of Service: 11/29/24 Procedure(s): XR lum bar spine 2-3V Accession Number(s): [id number] cc: Roberto Rosario M.D. [place] [id number] Patient Name: ALEENA NOEL MRN: [id number] date: 1965 Sex: F Assigned Patient Location: [facility] Current Patient Location: [facility] Accession/Order Numb er: [id number] Exam Date: 11/29/2024 16:06 Report Date: 11/29/2024 16:06 At the request of: ROBERTO ROSARIO MD Procedure: XR lumbar spine 2-3V LUMBAR SPINE - 2 views CLINICAL HISTORY: Flank Pain COMPARISON: Lumbar s pine 12/13/2021 FINDINGS: Vertebral heights appear maintained. No significant disc space narrowing. Mild endp late and facet joint degenerative change. X R/XR lumbar spine 2-3V IMPRESSION: MILD DEGENERATIVE CH ANGES WITHOUT SIGNIFICANT DISC HEIGHT LOSS. Impression dictated by: Darien Hudson Jr., D.O. 11/29/2024 4:06 PM Dictation Location: [facility]--[facility] Electronically authe nticated by: [id number] Y Date: 11/29/2024 16:06 Dictated By: Darien Andrew i, M.D. Signed By: 11/29/24 1609 DD/ 160 TD/TT: [employer]er: REASON FOR VISIT back pain Encounters Encounter Location Date Provider Diagnosis [facility] [address] [place] [address] 11/29/2024 Constantine Hoy Flank pain R10.9 Assessments Encounter Date Diagnosis (ICD Code) Assessment Notes Treatment Notes Treatment Clinical Notes Section Notes 11/29/2024 Flank pain (ICD-10 - R10.9) Plan Of Treatment Pending Test Test Name Order Date US KIDNEYS BLADDER 11/29/2024 Progress Notes * Aleena NOELDOB: [birth year] (59 yo F)Acc No.[id number]:11/29/2024 Patient: Aleena ROBERTSON :1965 A ge:59 Y S ex:Female Address:[facility] [address] [place], [address] Subjective: * Chief Complaints: * B ack pain * Medical History: * Surgical History: * Hospitalization/Major Diagno stic Procedure: * Medications: Objective: * Vitals: * Physical Examination: Assessment: * Assessment: 1. F lank pain - R10.9 (Primary) Plan: * Treatment: ?Imaging: XR lumbar spine 2-3V * Procedure Codes: * true * Date: Generated for Mao jesus/Rosamaria/Mikesmitting on: 0 12/01/2024 06:57 AM EDT
--- OUTSIDE RECORDS SUMMARY | 2024-11-29 15:40 | XMS_ITS ---
Author Organization The [facility] in [place] Address [address] [place] [address] Care Team Providers Care Community Services Manager Name Role Phone Constantine Hess Primary Care Provider REASON FOR VISIT xr Encounters Encounter Location Date Provider Diagnosis [facility] [address] [facility] [place] [address] 11/29/2024 Constantine Hess Plan Of Treatment No Information Progress Notes * Aleena NOELDOB: [birth year] (59 yo F)Acc No.[id number]:11/29/2024 Patient: Jacqui Aleena GARCIA :1965 A ge:59 Y S ex:Female Address:[address] [place], [address] * true * Date: Generated for Yenii edin/Rosamaria/eTransmitting on: 0 12/01/2024 06:57 AM EDT
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
--- NOTE | 2024-12-01 06:57 | US_ITS ---
[place] [id number] Patient Name: JEVON NOEL MRN: [id number] date: 1965 Sex: F Assigned Patient Location: US Current Patient Location: US Accession/Order Number: [id number] Exam Date: 12/01/2024 12:37 Report Date: 12/01/2024 12:38 At the request of: DONNA ROSARIO MD Procedure: US renal BI BILATERAL RENAL AND BLADDER ULTRASOUND CLINICAL HISTORY: Flank pain COMPARISON: None FINDINGS: Estimation of renal size is approximately 10.4 cm on the right and 9.9 cm on the left. No contour deforming mass, shadowing stone or hydronephrosis. The urinary bladder is partially distended with a volume of 561 ml. No shadowing stone or focal lesion. US/US renal BI IMPRESSION: No acute findings. Impression dictated by: Darien Hudson Jr., D.O. 12/01/2024 12:38 PM Dictation Location: [place] [address] Electronically authenticated by: [id number] Y Date: 12/01/2024 12:38
--- OUTSIDE RECORDS SUMMARY | 2024-12-01 06:58 | XMS_ITS | Encounter Summary ---
Author Organization [facility] Address [address] [place] [address] Care Team Providers Care Supervisor Records Change Name Role Phone Roberto Hess MD Primary Care Provider [phone] Source Comments In the event this information is protected by the Federal Confidentiality of Alcohol and Drug AbusePatient Records regulations: The Federal rules restrict any use of the information to criminally investigate or prosecute any alcohol or drug abuse patient.[facility] Encounter Details Date Type Department Care Team (Late st Contact Info) Description 12/06/2014 Patient Msg Medical Records [address] [place] [address] Provider, [facility] Procedure Social [...] Author No 10/14/2014 9:00 AM Jaime Weller APRN.POSTPARTUM RN * Are you blind or do you have serious difficulty seeing, even when wearing glasses? Answer Date of Assessment Author No 10/14/2014 9:00 AM Jaime Weller APRN.POSTPARTUM RN * Do you have serious difficulty walking or climbing stairs? Answer Date of Assessment Author No 10/14/2014 9:00 AM Jaime Weller APRN.POSTPARTUM RN * Do you have difficulty dressing or bathing? Answer Date of Assessment Author No 10/14/2014 9:00 AM Jaime Weller APRN.POSTPARTUM RN * Because of a physical, mental, or emotional condition, do you have difficulty doing errands alone such as visiting a doctor's office or shopping? Answer Date of Assessment Author No 10/14/2014 9:00 AM Jaime Weller APRN.POSTPARTUM RN documented as of this encounter Mental Status * Because of a physical, mental, or emotional condition, do you have serious difficulty concentrating, remembering, or making decisions? Answer Entry Date Author No 10/14/2014 9:00 AM Jaime Weller APRN.POSTPARTUM RN documented in this encounter Plan of Treatment Not on file documented as of this encounter Visit Diagnoses Not on filedocumented in this encounter Care Teams Supervisor Records Change Relationship Specialty Start Date End Date Roberto Hess MD [address] [place] [address] PCP - General 12/23/13 documented as of this encounter
--- OUTSIDE RECORDS SUMMARY | 2024-12-01 06:58 | XMS_ITS | Encounter Summary ---
Author Organization [facility] Address [address] [place] [address] Care Team Providers Care Coremaker Machine Name Role Phone Roberto Hess MD Primary Care Provider [phone] Source Comments In the event this information is protected by the Federal Confidentiality of Alcohol and Drug AbusePatient Records regulations: The Federal rules restrict any use of the information to criminally investigate or prosecute any alcohol or drug abuse patient.[facility] Encounter Details Date Type Department Care Team (Late st Contact Info) Description 08/22/2015 Patient Msg Orthopaedics [address] [place] [id number] Wilman Hutchinson MD, PhD [address] [place] [address] RE: Request an Appointment Social History Tobacco [...] No 10/14/2014 9:00 AM EDT Jaime Jamil, GEOPHYSICS PROFESSOR.RESIDENTIAL CONSTRUCTION INSTRUCTOR * Are you blind or do you have serious difficulty seeing, even when wearing glasses? Answer Date of Assessment Author No 10/14/2014 9:00 AM EDT Jaime Jamil, GEOPHYSICS PROFESSOR.RESIDENTIAL CONSTRUCTION INSTRUCTOR * Do you have serious difficulty walking or climbing stairs? Answer Date of Assessment Author No 10/14/2014 9:00 AM [facility] Jaiem Jamil APRN.RESIDENTIAL CONSTRUCTION INSTRUCTOR * Do you have difficulty dressing or bathing? Answer Date of Assessment Author No 10/14/2014 9:00 AM Jaime Weller, GEOPHYSICS PROFESSOR.RESIDENTIAL CONSTRUCTION INSTRUCTOR * Because of a physical, mental, or emotional condition, do you have difficulty doing errands alone such as visiting a doctor's office or shopping? Answer Date of Assessment Author No 10/14/2014 9:00 AM EDT Jaime Jamil, GEOPHYSICS PROFESSOR.RESIDENTIAL CONSTRUCTION INSTRUCTOR documented as of this encounter Mental Status * Because of a physical, mental, or emotional condition, do you have serious difficulty concentrating, remembering, or making decisions? Answer Entry Date Author No 10/14/2014 9:00 AM Jaime Weller, GEOPHYSICS PROFESSOR.RESIDENTIAL CONSTRUCTION INSTRUCTOR documented in this encounter Plan of Treatment Not on file documented as of this encounter Visit Diagnoses Not on filedocumented in this encounter Care Teams Coremaker Machine Relationship Specialty Start Date End Date Roberto Hess MD [address] [place] [address] PCP - General 12/23/13 documented as of this encounter
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
--- OUTSIDE RECORDS SUMMARY | 2024-12-01 06:58 | XMS_ITS | Clinical Summary ---
Author Organization [facility] Address [address], [address] [place] [address] Care Team Providers Care Python Consultant Name Role Phone Roberto Hess MD Primary Care Provider [phone] Allergies Active Allergy Reactions Criticality Noted Date [...] 9:53 PM 12/03/2013 9:08 PM Care Teams Python Consultant Relationship Specialty Start Date End Date Roberto Hess MD [address] [place] [address] PCP - General 12/15/13
--- OUTSIDE RECORDS SUMMARY | 2024-12-01 06:58 | XMS_ITS | Clinical Summary ---
Author Organization [facility] Address [address] [place] [address] Care Team Providers Care Recreation Aide Name Role Phone Roberto Hess MD Primary Care Provider [phone] Allergies Active Allergy Reactions Criticality Noted Date [...] Type Department Care Team Description 11/08/[address] [phone] Kate Roche MA 09/29/2024 3:00 PM EDT Office Visit [address] [address] Don Maria MD Uncontrolled hypertension (Primary Dx); CHE (obstructive sleep apnea); Mixed hyperlipidemia; SMITH (dyspnea on exertion); Dry cough 09/03/2024 Orders Only [address] [address] Angella Kiser MA Essential hypertension [...] to complete this topic Insurance GENERIC COMMERCIAL [facility] Care Teams Recreation Aide Relationship Specialty Start Date End Date Roberto Hess MD [address] [facility] [address] PCP - General 07/26/24
--- OUTSIDE RECORDS SUMMARY | 2024-12-01 06:58 | XMS_ITS | Encounter Summary ---
Author Organization [facility] Address [address] [place] [address] Care Team Providers Care Wind Tunnel Mechanic Name Role Phone Roberto Hess MD Primary Care Provider [phone] Source Comments In the event this information is protected by the Federal Confidentiality of Alcohol and Drug AbusePatient Records regulations: The Federal rules restrict any use of the information to criminally investigate or prosecute any alcohol or drug abuse patient.[facility] Encounter Details Date Type Department Care Team (Late st Contact Info) Description 12/31/2014 Patient Msg Medical Records [address] [place] [address] Provider, Cc RE: Patient Registration Completed Social [...] Author No 10/14/2014 9:00 AM Jaime Weller APRN.TUBING SUPERVISOR * Are you blind or do you have serious difficulty seeing, even when wearing glasses? Answer Date of Assessment Author No 10/14/2014 9:00 AM Jaime Weller APRN.TUBING SUPERVISOR * Do you have serious difficulty walking or climbing stairs? Answer Date of Assessment Author No 10/14/2014 9:00 AM Jaime Weller APRN.TUBING SUPERVISOR * Do you have difficulty dressing or bathing? Answer Date of Assessment Author No 10/14/2014 9:00 AM Jaime Weller APRN.TUBING SUPERVISOR * Because of a physical, mental, or emotional condition, do you have difficulty doing errands alone such as visiting a doctor's office or shopping? Answer Date of Assessment Author No 10/14/2014 9:00 AM Jaime Weller APRN.TUBING SUPERVISOR documented as of this encounter Mental Status * Because of a physical, mental, or emotional condition, do you have serious difficulty concentrating, remembering, or making decisions? Answer Entry Date Author No 10/14/2014 9:00 AM Jaime Weller APRN.TUBING SUPERVISOR documented in this encounter Plan of Treatment Not on file documented as of this encounter Visit Diagnoses Not on filedocumented in this encounter Care Teams Wind Tunnel Mechanic Relationship Specialty Start Date End Date Roberto Hess MD [address] [place] [address] PCP - General 12/23/13 documented as of this encounter
--- OUTSIDE RECORDS SUMMARY | 2024-12-01 06:58 | XMS_ITS | Encounter Summary ---
Author Organization [facility] Address [address] [place] [address] Care Team Providers Care Ballistic Expert Name Role Phone Roberto Hess MD Primary Care Provider [phone] Source Comments In the event this information is protected by the Federal Confidentiality of Alcohol and Drug AbusePatient Records regulations: The Federal rules restrict any use of the information to criminally investigate or prosecute any alcohol or drug abuse patient.[facility] Encounter Details Date Type Department Care Team (Late st Contact Info) Description 11/10/2015 Patient Msg Medical Records [address] [place] [address] Provider, [facility] Procedure Social [...] Author No 10/14/2014 9:00 AM Jaime Weller APRN.SPECIAL EDUCATION PARAEDUCATOR * Are you blind or do you have serious difficulty seeing, even when wearing glasses? Answer Date of Assessment Author No 10/14/2014 9:00 AM Jaime Weller APRN.SPECIAL EDUCATION PARAEDUCATOR * Do you have serious difficulty walking or climbing stairs? Answer Date of Assessment Author No 10/14/2014 9:00 AM Jaime Weller APRN.SPECIAL EDUCATION PARAEDUCATOR * Do you have difficulty dressing or bathing? Answer Date of Assessment Author No 10/14/2014 9:00 AM Jaime Weller APRN.SPECIAL EDUCATION PARAEDUCATOR * Because of a physical, mental, or emotional condition, do you have difficulty doing errands alone such as visiting a doctor's office or shopping? Answer Date of Assessment Author No 10/14/2014 9:00 AM Jaime Weller APRN.SPECIAL EDUCATION PARAEDUCATOR documented as of this encounter Mental Status * Because of a physical, mental, or emotional condition, do you have serious difficulty concentrating, remembering, or making decisions? Answer Entry Date Author No 10/14/2014 9:00 AM Jaime Weller APRN.SPECIAL EDUCATION PARAEDUCATOR documented in this encounter Plan of Treatment Not on file documented as of this encounter Visit Diagnoses Not on filedocumented in this encounter Care Teams Ballistic Expert Relationship Specialty Start Date End Date Roberto Hess MD [address] [place] [address] PCP - General 12/23/13 documented as of this encounter
--- OUTSIDE RECORDS SUMMARY | 2024-12-01 06:58 | XMS_ITS | Encounter Summary ---
Author Organization [facility] Address [address] [place] [address] Care Team Providers Care Child Life Assistant Name Role Phone Roberto Hess MD Primary Care Provider [phone] Source Comments In the event this information is protected by the Federal Confidentiality of Alcohol and Drug AbusePatient Records regulations: The Federal rules restrict any use of the information to criminally investigate or prosecute any alcohol or drug abuse patient.[facility] Encounter Details Date Type Department Care Team (Late st Contact Info) Description 11/10/2015 Patient Msg Medical Records [address] [place] [address] Provider, [facility] Procedure Social [...] Author No 10/14/2014 9:00 AM Jaime Weller APRN.SECRETARIAL STENOGRAPHER * Are you blind or do you have serious difficulty seeing, even when wearing glasses? Answer Date of Assessment Author No 10/14/2014 9:00 AM Jaime Weller APRN.SECRETARIAL STENOGRAPHER * Do you have serious difficulty walking or climbing stairs? Answer Date of Assessment Author No 10/14/2014 9:00 AM Jaime Weller APRN.SECRETARIAL STENOGRAPHER * Do you have difficulty dressing or bathing? Answer Date of Assessment Author No 10/14/2014 9:00 AM Jaime Weller APRN.SECRETARIAL STENOGRAPHER * Because of a physical, mental, or emotional condition, do you have difficulty doing errands alone such as visiting a doctor's office or shopping? Answer Date of Assessment Author No 10/14/2014 9:00 AM Jaime Weller APRN.SECRETARIAL STENOGRAPHER documented as of this encounter Mental Status * Because of a physical, mental, or emotional condition, do you have serious difficulty concentrating, remembering, or making decisions? Answer Entry Date Author No 10/14/2014 9:00 AM Jaime Weller APRN.SECRETARIAL STENOGRAPHER documented in this encounter Plan of Treatment Not on file documented as of this encounter Visit Diagnoses Not on filedocumented in this encounter Care Teams Child Life Assistant Relationship Specialty Start Date End Date Roberto Hess MD [address] [place] [address] PCP - General 12/23/13 documented as of this encounter
--- OUTSIDE RECORDS SUMMARY | 2024-12-01 06:58 | XMS_ITS | Encounter Summary ---
Author Organization [facility] Address [address] [place] [address] Care Team Providers Care Surgical Resident Name Role Phone Roberto Hess MD Primary Care Provider [phone] Source Comments In the event this information is protected by the Federal Confidentiality of Alcohol and Drug AbusePatient Records regulations: The Federal rules restrict any use of the information to criminally investigate or prosecute any alcohol or drug abuse patient.[facility] Encounter Details Date Type Department Care Team (Latest Contact Info) Description 05/30/2021 Patient Msg [facility] [address] [place] [address] Provider, [facility] Cerebrovascular Appointment Follow [...] N ot on file 03/29/2020 Data from: [email or web address] Last address used for calculation Not [...] Author No 10/14/2014 9:00 AM Jaime Weller APRN.PRACTICE PHYSICIAN * Are you blind or do you have serious difficulty seeing, even when wearing glasses? Answer Date of Assessment Author No 10/14/2014 9:00 AM Jaime Weller APRN.PRACTICE PHYSICIAN * Do you have serious difficulty walking or climbing stairs? Answer Date of Assessment Author No 10/14/2014 9:00 AM Jaime Weller APRN.PRACTICE PHYSICIAN * Do you have difficulty dressing or bathing? Answer Date of Assessment Author No 10/14/2014 9:00 AM Jaime Weller APRN.PRACTICE PHYSICIAN * Because of a physical, mental, or emotional condition, do you have difficulty doing errands alone such as visiting a doctor's office or shopping? Answer Date of Assessment Author No 10/14/2014 9:00 AM Jaime Weller APRN.PRACTICE PHYSICIAN documented as of this encounter Mental Status * Because of a physical, mental, or emotional condition, do you have serious difficulty concentrating, remembering, or making decisions? Answer Entry Date Author No 10/14/2014 9:00 AM Jaime Weller APRN.PRACTICE PHYSICIAN documented in this encounter Plan of Treatment Not on file documented as of this encounter Visit Diagnoses Not on filedocumented in this encounter Care Teams Surgical Resident Relationship Specialty Start Date End Date Roberto Hess MD [address] [place] [address] PCP - General 12/23/13 documented as of this encounter
--- OUTSIDE RECORDS SUMMARY | 2024-12-01 06:58 | XMS_ITS | Encounter Summary ---
Author Organization [facility] Address [address] [place] [address] Care Team Providers Care Photoengraving Photographer Name Role Phone Roberto Hess MD Primary Care Provider [phone] Source Comments In the event this information is protected by the Federal Confidentiality of Alcohol and Drug AbusePatient Records regulations: The Federal rules restrict any use of the information to criminally investigate or prosecute any alcohol or drug abuse patient.[facility] Encounter Details Date Type Department Care Team (Late st Contact Info) Description 11/09/2015 Patient Msg Medical Records [address] [place] [address] Provider, [facility] please do SRINIVAS for prep [...] Author No 10/14/2014 9:00 AM Jaime Weller APRN.CATERER HELPER * Are you blind or do you have serious difficulty seeing, even when wearing glasses? Answer Date of Assessment Author No 10/14/2014 9:00 AM Jaime Weller APRN.CATERER HELPER * Do you have serious difficulty walking or climbing stairs? Answer Date of Assessment Author No 10/14/2014 9:00 AM Jaime Weller APRN.CATERER HELPER * Do you have difficulty dressing or bathing? Answer Date of Assessment Author No 10/14/2014 9:00 AM Jaime Weller APRN.CATERER HELPER * Because of a physical, mental, or emotional condition, do you have difficulty doing errands alone such as visiting a doctor's office or shopping? Answer Date of Assessment Author No 10/14/2014 9:00 AM Jaime Weller APRN.CATERER HELPER documented as of this encounter Mental Status * Because of a physical, mental, or emotional condition, do you have serious difficulty concentrating, remembering, or making decisions? Answer Entry Date Author No 10/14/2014 9:00 AM Jaime Weller APRN.CATERER HELPER documented in this encounter Plan of Treatment Not on file documented as of this encounter Visit Diagnoses Not on filedocumented in this encounter Care Teams Photoengraving Photographer Relationship Specialty Start Date End Date Roberto Hess MD [address] [place] [address] PCP - General 12/23/13 documented as of this encounter
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
--- OUTSIDE RECORDS SUMMARY | 2024-12-01 06:58 | XMS_ITS | Encounter Summary ---
Author Organization [facility] Address [address] [place] [address] Care Team Providers Care Blue Print Control Clerk Name Role Phone Roberto Hess MD Primary Care Provider [phone] Source Comments In the event this information is protected by the Federal Confidentiality of Alcohol and Drug AbusePatient Records regulations: The Federal rules restrict any use of the information to criminally investigate or prosecute any alcohol or drug abuse patient.[facility] Encounter Details Date Type Department Care Team (Late st Contact Info) Description 11/11/2015 Patient Msg Medical Records [address] [place] [address] Provider, Cc RE: Patient Registration Completed Social [...] Author No 10/14/2014 9:00 AM Jaime Weller APRN.LAB TECHNOLOGIST * Are you blind or do you have serious difficulty seeing, even when wearing glasses? Answer Date of Assessment Author No 10/14/2014 9:00 AM Jaime Weller APRN.LAB TECHNOLOGIST * Do you have serious difficulty walking or climbing stairs? Answer Date of Assessment Author No 10/14/2014 9:00 AM Jaime Weller APRN.LAB TECHNOLOGIST * Do you have difficulty dressing or bathing? Answer Date of Assessment Author No 10/14/2014 9:00 AM Jaime Weller APRN.LAB TECHNOLOGIST * Because of a physical, mental, or emotional condition, do you have difficulty doing errands alone such as visiting a doctor's office or shopping? Answer Date of Assessment Author No 10/14/2014 9:00 AM Jaime Weller APRN.LAB TECHNOLOGIST documented as of this encounter Mental Status * Because of a physical, mental, or emotional condition, do you have serious difficulty concentrating, remembering, or making decisions? Answer Entry Date Author No 10/14/2014 9:00 AM Jaime Weller APRN.LAB TECHNOLOGIST documented in this encounter Plan of Treatment Not on file documented as of this encounter Visit Diagnoses Not on filedocumented in this encounter Care Teams Blue Print Control Clerk Relationship Specialty Start Date End Date Roberto Hess MD [address] [place] [address] PCP - General 12/23/13 documented as of this encounter
--- OUTSIDE RECORDS SUMMARY | 2024-12-01 06:58 | XMS_ITS | Encounter Summary ---
Author Organization [facility] Address [address] [place] [address] Care Team Providers Care Fast Food Services Manager Name Role Phone Roberto Hess MD Primary Care Provider [phone] Source Comments In the event this information is protected by the Federal Confidentiality of Alcohol and Drug AbusePatient Records regulations: The Federal rules restrict any use of the information to criminally investigate or prosecute any alcohol or drug abuse patient.[facility] Encounter Details Date Type Department Care Team (Late st Contact Info) Description 09/30/2014 Patient Msg Medical Records [address] [place] [address] Provider, Cc RE: Patient Registration Completed Social [...] on filedocumented in this encounter Care Teams Fast Food Services Manager Relationship Specialty Start Date End Date Roberto Hess MD [address] [place] [id number] PCP - General 12/23/13 documented as of this encounter
== END 2024-12-01 06:54 | disposition home or self-care (01) ==
LOC: US 06:54
PROVIDERS: PCP Family Medicine; Visit Provider Family Medicine
DX: R10.9 Unspecified abdominal pain (principal)
CPT/HCPCS: 76770; 76775

== ENCOUNTER 2025-03-13 18:57 | Emergency (ER) | payer OTHER, SELFPAY ==
--- OUTSIDE RECORDS SUMMARY | 2024-11-01 09:00 | XMS_ITS ---
Author Organization [facility] in [place] Address [address] [facility] [place] [address] Care Team Providers Care Rehabilitation Caseworker Name Role Phone Constantine Hess Primary Care Provider [phone] REASON FOR VISIT ER F/U Encounters Encounter Location Date Provider Diagnosis [facility] [address] [facility] [place] [address] 11/01/2024 Constantine Hess Plan Of Treatment No Information Progress Notes * Aleena NOELDOB: [birth year] (59 yo F)Acc No.[id number]:11/01/2024 UNLOCKED PROGRESS NOTE Progress Note Patient: Ruthann ROBERTSONela Shawna :?Roberto HICKS), MDDOB:1965???Age: 59 Y???Sex:FemaleDate:11/01/2024Phone:[phone]:[address] [id number] Subjective: * Chief Complaints: * 1 . ER F/U. * Medical History: Objective: * Vitals: Assessment: Plan: * Treatment: * * Electronic signature of Constantine Hess MD, [id number] on 03/13/2025 at 07:43 PM EST Sign off status: PendingVisit Status:?CANC (Cancelled) * Provider: Lee Hess MD (TTC) Date: 0 11/01/2024 Generated for Printing/Faxing/eTransmitting on:?03/13/2025 07:43 PM EST
[2025-03-13] VITALS (32 sets, daily range): BP systolic 153–222; BP diastolic 87–117; PULSE 75–97; TEMP 36.5; O2SAT 90–96; BMI 31.9
--- NOTE | 2025-03-13 19:15 | PC.NURSE ---
PA at the bedside.
--- NOTE | 2025-03-13 19:18 | ECG_ITS ---
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 Measurements Intervals [place] Rate: 94 P: 63 MT: 142 QRS: 53 QRSD: 88 T: 38 QT: 350 QTc: 402 Interpretive Statements 1100 Sinus rhythm [address] depression 9130 borderline ECG Compared to ECG 10/29/2024 20:22:04 No significant changes Electronically Signed On 03-13-2025 20:42:45 EST by AVA JOHNSON M.D.
--- NOTE | 2025-03-13 19:23 | XR_ITS ---
[facility] [place] [id number] Patient Name: JEVON NOEL MRN: [id number] date: 1965 Sex: F Assigned Patient Location: ER Current Patient Location: Accession/Order Number: [id number] Exam Date: 03/13/2025 19:25 Report Date: 03/14/2025 07:49 At the request of: GAYE GREWAL Procedure: XR chest 1V PORTABLE AP ERECT CHEST 1914 hours CLINICAL HISTORY: dyspnea and wheezing COMPARISON: None The heart is within normal limits. There is no vascular congestion. The lungs, as visualized, are clear. There is no effusion or pneumothorax. The osseous structures are intact. There is a left shoulder prosthesis. XR/XR chest 1V IMPRESSION: NO ACUTE FINDINGS Impression dictated by: Linda Flores M.D. 03/14/2025 7:49 AM Dictation Location: [place] [address] Electronically authenticated by: [id number] Y Date: 03/14/2025 07:49
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
[2025-03-13] MEDS: METHYLPREDNISOLONE SOD SUCC PF 125 MG/2 ML VIAL IVP (19:42)
[2025-03-13] MEDS: ENALAPRILAT DIHYDRATE 1.25 MG/ML VIAL IV (19:42)
--- OUTSIDE RECORDS SUMMARY | 2025-03-13 19:42 | XMS_ITS | CCD ---
Author Organization [facility] [place] [facility] Care Team Providers Care Intensive Care Anaesthetist Name Role Phone Donna Hess MD Primary Care Provider [phone] ABRAHAM, DR THOMPSON Admitting Unavailable ABRAHAM, DR THOMPSON Attending Unavailable DANGELOY, DR THOMPSON Primary Care Unavailable DANGELOY, DR THOMPSON Consulting Unavailable WEST, DR OFELIA Craig Consulting Unavailable DANGELOY, DR THOMPSON Admitting Unavailable HOY, DR THOMPSON Attending Unavailable DANGELOY, DR THOMPSON Consulting Unavailable ABRAHAM, DR THOMPSON Admitting Unavailable ABRAHAM, DR THOMPSON Attending Unavailable ABRAHAM, DR THOMPSON Primary Care Unavailable DANGELOY, DR THOMPSON Consulting Unavailable ZIEBER, DR ALEX Collazo Consulting Unavailable MD Donna Hess Primary Care Provider [phone] MD Donna Hess Attending Provider [phone] MD Ofelia Martinez V Attending Provider Ofelia Martinez V Attending Unavailable Ofelia Martinez V Admitting Unavailable Donna Hess Attending Donna White Primary Care Unavailable Donna Hess Admitting Unavailable AVA JOHNSON Attending Unavailable AVA JOHNSON Attending Unavailable Allergies Allergy ClassificationReported Allergen(s)Allergy TypeDate of OnsetReaction(s) Facility (2 sources)Bacitracin; Translations: [BACITRACIN]Drug Zkvsdjt68-26-3788Zkyulmk [facility] (1 source)egg white (chicken) allergenic extractDrug Gzzunvx17-77-7412Lmjuh: See CommentsHarrison Community Hospital (1 source)BacitracinDrug Ahbmwwr33-94-7103Dew [facility] Repository (1 source)Sulfonamides (Antibiotic)Drug allergy (disorder)50-77-1109Mbq [facility] Repository (1 source)Misc-DrugDrug allergy (disorder)10-78-4367Ern [facility] Repository (1 source)Lisinopril; Translations: [LISINOPRIL]Drug Qyilzaj48-06-1365NoslxojnxhM[facility] (1 source)Sulfonamides (Antibiotic); Translations: [SULFA (SULFONAMIDE ANTIBIOTICS)]Propensity to adverse reactions to drug (disorder)07-22-2024 [facility] Medications Current Medications MedicationDrug Class(es)DatesSig (Normalized)Sig (Original)meclizine hydrochloride 25 mg oral tablet (1 source)AntiemeticStart: 08-24-2021 End: 77-01-8978aboy 1 tablet by mouth three times dailymeclizine (ANTIVERT) 25 mg tab Take 1 tablet by mouth three times daily. 270 tablet 0 08/24/202107/2021 ActiveComment on above:Take 1 tablet by mouth three times daily. Completed/Discontinued Medications MedicationDrug Class(es)DatesSig (Normalized)Sig (Original)aspirin 325 mg oral tablet (1 source)Platelet Aggregation Inhibitor, Nonsteroidal Anti-inflammatory Drug Start: 69-05-3562wgee 1 tablet by mouth once dailyaspirin 325 mg tablet Take 1 tablet by mouth once daily. 90 tablet 3 10/14/2014 ActiveComment on above:Take 1 tablet by mouth once daily.cetirizine hydrochloride 10 mg oral capsule (1 source)Histamine-1 Receptor Antagonisttake 1 capsule by mouth once daily Cetirizine 10 mg cap Take 10 mg by mouth once daily. 0 ActiveComment on above: Take 10 mg by mouth once daily.multivitamin tablet (1 source)take 1 tablet by mouth once dailymultivitamin tablet Take 1 tablet by mouth once daily. 0 ActiveComment on above:Take 1 tablet by mouth once daily. omeprazole 40 mg delayed release oral capsule (1 source)Proton Pump InhibitorStart: 91-30-1712afek 1 capsule by mouth twice daily, then take 1 capsule by mouth once dailyomeprazole (PRILOSEC) 40 mg capsule TAKE 1 CAPSULE BY MOUTH TWICE A DAY FOR TWO WEEKS THAN DECREASETO ONE CAPSULE DAILY 0 07/16/2021 ActiveComment on above:TAKE 1 CAPSULE BY MOUTH TWICE A DAY FOR TWO WEEKS THAN DECREASE TO ONE CAPSULE DAILY Problems Active Problems Problem ClassificationProblemDateDocumented DateEpisodic/ChronicDisorders of lipid metabolism (2 sources)Mixed hyperlipidemia; Translations: [Mixed hyperlipidemia]Onset: 81-03-6885LcssfffFjoiljxli hypertension (2 sources)Essential (primary) hypertension; Translations: [Essential (primary) hypertension]Onset: 81-15-4997RywadggDrikmspvf of skin (1 source)Malignant melanoma; Translations: [Malignant melanoma of skin, unspecified]Onset: 609012-29-9224FxrvvwsPxzswkzypbheyt (2 sources)Degenerative joint disease of shoulder region; Translations: [Post- traumatic osteoarthritis, unspecified shoulder]Onset: ChronicOther connective tissue disease (1 source)History of reverse prosthetic total arthroplasty of right shoulder; Translations: [Presence of right artificial shoulder joint]ChronicOther connective tissue disease (1 source)Tendinitis of left rotator cuff; Translations: [Other shoulder lesions, left shoulder]EpisodicOther connective tissue disease (1 source)Impingement syndrome of left shoulder region; Translations: [Impingement syndrome of left shoulder]EpisodicOther diseases of veins and lymphatics (1 source)Lymphedema of upper limb; Translations: [Lymphedema, not elsewhere classified]Onset: 277084-41-6863JveeuelLiumi non-traumatic joint disorders (4 sources)Pain in right hip; Translations: [PAIN IN RIGHT HIP]Onset: 12-21-2021 EpisodicResidual codes; unclassified (2 sources)Obstructive sleep apnea (adult) (pediatric); Translations: [Obstructive sleep apnea (adult) (pediatric)]Onset: 63-10-2155Enueozo Unclassified (1 source)SUMMARYOnset: 86-13-6554Dlyofojohdyx (3 sources)CONTACT W/AND (SUSP) EXPOS COVID-19; Translations: [CONTACT W/AND (SUSP) EXPOS COVID-19]Onset: 57-31-3567Xiapbbgfwkcw (1 source)Other specified cough; Translations: [Other specified cough]Onset: 09-29-2024 Past or Other Problems Problem ClassificationProblemDateDocumented DateEpisodic/ChronicAcute bronchitis (1 source)Acute bronchitis, unspecified; Translations: [ACUTE BRONCHITIS UNSPECIFIED]Onset: 38-63-6681SzfjddlkYjoktmrfyxrth mental health disorders (1 source)Abnormal affect; Translations: [Other symptoms and signs involving emotional state]Onset: 120872-61-1250LtqdvrmbQpnmj connective tissue disease (1 source)Weakness of right arm; Translations: [Other symptoms and signs involving the musculoskeletal system]Onset: 079980-99-1490WtgmywazJqyms injuries and conditions due to external causes (1 source)Injury of brachial plexus; Translations: [Injury of brachial plexus, initial encounter]Onset: 135782-07-0525KbhwateuGosza lower respiratory disease (2 sources)Other forms of dyspnea; Translations: [Other forms of dyspnea]Onset: 12-17-4732QzdokywoSykjo nervous system disorders (1 source)Numbness of hand; Translations: [Anesthesia of skin]Onset: 12-23-2013 73-74-9210SzkoexzbWlwxjlcjgttf (1 source)CONTACT W/AND (SUSP) EXPOS COVID-19; Translations: [CONTACT W/AND (SUSP) EXPOS COVID-19]Onset: 10-57-6593Onglwhvbhzqy (1 source)Other specified cough; Translations: [Other specified cough]Onset: 09-29-2024 Results Test NameValueInterpretationReference MehpfPdodpvab64ug 63-78-895087Kg and Dr Marshall office informed script sentNormalUniversity The Christ Hospital3603-64-499440Kkszs with patient and asked her to stop metoprolol and starting carvedilol 25mg bid per Dr. Johnson. RX sent to her pharmacy. Patient verbalized understanding.[facility]36on 33-77-732166Cnabaxk called stating she was taken by squad [...] daily. I will upload her records into social media job titles. Please review and advise. Thanks. [facility] HospitalTelephoneon 35-58-5958Rvmbdedhl [id number] Aleena Noel Shawna 1965 F Date Provider Department Center 11/08/2024 SUNNY LI ALONZO Martinez Family History Problem Relation Age of Onset Lung disease Mother Diabetes Father Diabetes Brother Heart attack Brother Family Status - Relation Status Age at Mother Father Alive Sister Alive Brother AliveNormalUniLima Memorial Hospital37on 40-53-9178030. Stop lisinopril due to cough. 2. Start valsartan 320 mg once daily. 3. Increase hydrochlorothiazide to 25 mg once daily. 4. Start atorvastatin 20 mg once daily due to high cholesterol levels. 5. Obtain fasting blood test for kidney function, liver function and cholesterol in 1 month. 6. Follow-up in 6 months.[facility] HospitalOffice Visiton 35-66-7437Gjddka-up [id number] Aleena Noel 1965 Date Provider Department Center 09/29/2024 AVA PEREIRA ALONZO Martinez Family History Problem Relation Age of Onset Lung disease Mother Diabetes Father Diabetes Brother Heart attack Brother Family Status - Relation Status Age at Mother Father Alive Sister Alive Brother Alive Level of Service:00973 NE OFFICE/OUTPATIENT ESTABLISHED MOD MDM 30 [facility]36on 07-41-364626Ieofxvo informed her labs are ok. Still not taking amlodipine and says the edema is coming down. Had echo this morning and her BP was 144 systolic. She said that's the highest it's been in awhile. Told her I'd call with echo result when it becomes available. She verbalized understanding.[facility]36on 00-71-835696Yllzcvm called asking about her labs from last week. She stopped amlodipine after I advised her to last week. Says her BP has been in the 130's systolic. [facility]36on 68-29-838245Fyqqnpu's daughter called and I told her to let her mother know to stop amlodipine for now until we heard from Dr. Johnson.[facility] HospitalTelephoneon [id number] Aleena Noel 1965 F Date Provider Department Center 08/09/2024 Denis5-ADELA CALVO ALONZO [facility] Family History Problem Relation Age of Onset Lung disease Mother Diabetes Father Diabetes Brother Heart attack Brother Family Status - Relation Status Age at Mother Father Alive Sister Alive Brother AliveNormalUniLima Memorial HospitalOffice Visiton 07-26-2024 Follow-up [id number] Aleena Noel 1965 F Date Provider Department Center 07/26/2024 Justin-ELIZABETH AVA ALONZO [facility] Family History Problem Relation Age of Onset Lung disease Mother Diabetes Father Diabetes Brother Heart attack Brother Family Status - Relation Status Age at Mother Father Alive Sister Alive Brother Alive Level of Service:31903 NE OFFICE/OUTPATIENT NEW MODERATE MDM 45 MINUTESNormal [facility] ClinicLon 19-00-5517GTlnvrxbh: [id number] Received: 07/29/23 Status: LIZZ Maldonado Num: [id number] Spec Type: Surgical Subm Dr: Ofelia Martinez Tissues: A BREAST CORE NO CALCS (LT BREAST 6:00) Procedures: HE/2, Gross/Micro L4 Age/ Patient Sex Location Account Attending Physician Aleena Noel 57/F LABELL [id number] Ofelia Martinez MD SPEC NUM: [id number] RECD: 07/29/23 STATUS: LIZZ MALDONADO NUM: [id number] ONEIL: 07/29/23- SUBM DR: Ofelia Martinez ENTERED: 07/29/23-[address] [facility] [address]: SPEC TYPE: Surgical DEPT: [...] cm in aggregate. Submitted entirely in A1. [place]OR/HANNAH Clinical history: Melanoma Code ischemic time: 2 minutes Formalin fixation time: 33 hours Specimen: [id number] Received: 07/29/23 Status: LIZZ Maldonado Num: [id number] Spec Type: Surgical Subm Dr: Ofelia Martinez Tissues: A BREAST CORE NO CALCS ( BREAST 6:00) Procedures: HE/Ayde, Gross/Saranya L4 Patient: Aleena Noel [id number] (Continued) Specimen: [id number] Received: 07/29/23 (Continued) Signed (signature on file) Maryann Rubio MD 07/31/23 7801 Specimen: [id number] Received: 07/29/23 Status: LIZZ Maldonado Num: [id number] Spec Type: Surgical Subm Dr: Ofelia Martinez Tissues: A BREAST CORE NO CALCS (LT BREAST 6:00) Procedures: HE/Ayde, Gross/Micro L4 Patient: Aleena Noel [id number] (Continued) Specimen: [id number] Received: 07/29/23 (Continued) CPT Codes 97305 Specimen: [id number] Received: 07/29/23 Status: LIZZ Maldonado Num: [id number] Spec Type: Surgical Subm Dr: Ofelia Martinez Tissues: A BREAST CORE NO CALCS (LT BREAST 6:00) Procedures: HE/2, Gross/Micro L4 Patient: Aleena Noel [id number] (Continued) Signed (signature on file) Maryann Rubio MD 07/31/[address] [place] [address] Physician Group breast BI wo/w con CADon 52-15-7217AH breast BI wo/w con [facility] [place] [address] MRI Report Signed Patient: Aleena Noel MR#: [id number] : 1965 Acct:[id number] Age/Sex: 57 / F ADM Date: 07/17/23 Loc: [facility] Room: Type: [facility] Attending Dr: Donna Hess MD [...] All imaged data was reviewed using the [employer] system. The postcontrast images were subtracted and [...] Hudson Jr., D.OTonya07/18/2023 10:01 AM Dictation Location: [place] [address] Transcribed By: [facility] 07/18/23 1001 Dictated By: Darien Hudson Jr, DO 07/17/23 1549 Signed By: 07/18/23 1001[facility] Physician GroupXR HIP RT INJon 08-42-2896JW HIP RT INJEXAMINATION: XR HIP RT INJ HISTORY: Pain in [...] Electronically authenticated by: OFELIA MARTINEZ Date: 2021-12-21 09:12[facility] HospitalXR LSPINE MIN 4 VIEWSon 92-10-4835KE LSPINE MIN 4 VIEWS EXAMINATION: XR LSPINE [...] Electronically authenticated by: ALEX VARGAS Date: 2021-12-14 07:06Doctors HospitalCNOVon 99-95-0711BWQNXkrnxw Visit (ORMN) CONNOR NOELELA Shawna ([id number]) 1965 F Date Time Provider Department 08/24/21 1:00 PM LÓPEZ PIERSON [facility] During your visit today, we recorded the following information about you: López Pierson MD 08/24/2021 2:28 PM Signed SHOULDER/ELBOW INITIAL CONSULT SERVICE DATE: 08/24/2021 PCP: Donna Hess MD, MD REFERRING PROVIDER: Donna Hess MD [address] [place] [address] Consult requested for an opinion regarding the evaluation and treatment of the above. My final impression and recommendations will be communicated back to the requesting physician by way of the shared medical record or letter via US mail. CHIEF COMPLAINT: Right and left shoulder follow-up SUBJECTIVE HISTORY OF PRESENT ILLNESS: 56 year old female, iejh-topy-ihpvrsts, prior patient of Dr. Hutchinson. Underwent a right reverse total shoulder placement November 2015. Doing excellent no pain no issues, function 90%. 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 Pain with Jobes. Negative speeds negative Columbia's. Axillary, Long Thoracic, CN XI, Median, [...] have given her these (more content not included)...NormalPeoples HospitalOVOffice Visit (NECVS8) ALEENA NOEL ([id number]) 1965 F Date Time Provider Department 08/24/21 11:05 AM REKHA HAMM NECVS8 During your visit today, we recorded the following information about you: Pulse Blood pressure Weight Height 80/minute 151/78 69.9 kg 1.6 m Rekha Hamm APRN.CNP 08/24/2021 11:02 AM Addendum Regarding your visit with Nurse Practitioner Rekha Hamm today at the [facility] we discussed the following: [...] have any questions Rekha Hamm CNP Cerebrovascular [place] Nurse Practitioner [place], [place] [address] Office: [phone] Appointments: [phone] Stroke Signs and Symptoms: *Stroke is a [...] available if action is taken early enough. ~~~~~~~~~~~~~~~~~~~~~~~~~~~~~~~~~~~~~~~~~~~~~~~~~~~~~~~~~~~~~~~~~~~~~~~~ General Guidelines to Help Reduce Risk of [...] Stop Hypertension) eating plan - more information: https://www.heart.org/en/healthy-living/healthy-eating/eat-smart/nutrition-basi- cs/nkl-yukt-wcz-lifestyle-recommendations Smoking and Tobacco Use (including e-cigarettes) - [...] considered to reduce t (more content not included)...NormalHolzer Health SystemMRA BRAIN WO IVCONon 06-07-6767IHJ BRAIN WO IVCON* * *Final Report* * * DATE OF [...] brain 09/27/2015 and 01/09/2015 TECHNIQUE: Intracranial 3D loqp-iu-lusgrf MRA with 2D multiplanar and 3D maximum [...] with minimal flow signal at the base. Cardiac Cath Rn: [facility] Transcribe Date/Time: Aug 24 2021 9:47A Dictated by : REBECCA RUIZ MD This examination was interpreted and the report reviewed and electronically signed by: BENJA MCCALL MD on Aug 24 2021 1:22PM EST [id number] VA Medical CenterXR SHLDR >/=3V AP/LOUISA AP/OTHR RTon 87-08-5388XG SHLDR >/=3V AP/LOUISA AP/OTHR RT* * *Final Report* * * DATE OF [...] radiolucency identified. IMPRESSION: Reversed shoulder arthroplasty satisfactory. [facility] Transcribe Date/Time: Aug 24 2021 8:03A Dictated by : ELVA SMITH MD This examination was interpreted and the report reviewed and electronically signed by: ELVA SMITH MD on Aug 24 2021 8:06AM EST [id number] VA Medical CenterCNPNon 14-90-1278OKEW Telephone (NSEVMN) ALEENA NOEL ([id number]) 1965 F Date Time Provider Department 05/29/21 GUILLERMO BERRY NSEArnaldo During your visit today, we recorded the [...] Dr. Hutchinson no longer is at [facility] [place]. Encouraged to ask for that referral [...] patient's insurance per below. [employer]#: [id number] Providers #: [phone] or [phone] [facility] [address] [address] [address] [place] [address] Scheduled her on August 24 with Rekha Remy as patient preferred to be seen on Friday or Friday, if necessary. She will access appt details via [employer]. I've sent her a [employer] message with: 1. Our office number 2. [...] cerebral aneurysm [I67.1] Order(s):MRA BRAIN WO IVCON [[id number]] Order #: [id number] FUTURE Prescriptions as of 05/30/2021 - multivitamin [...] should*11/28/2016 Encounter Status:Closed by AGNES DUKE on 05/29/21NoUniversity Hospitals Geauga Medical CenterCovid-19 PCR (CVDTB)on 28-53-1921UKNV-CoV-2 (COVID-19) RNA SAÚL+probe Ql (Unsp spec)Not detectedNormalNOT DETECTEDThe [facility] HospitalComment on above:Result Comment: This test is not yet approved or cleared by the [place] FDA. When there are no FDA-approved or cleared tests available, and other criteria are met, FDA can make tests available under an emergency access mechanism called an Emergency Use Authorization (EUA). The EUA for this test is supported by the [place] of Health and Human Service's (HHS's) declaration [...] of clinical signs and symptoms consistent with SARS-CoV-2.Performed By: #### CVDTB #### [facility] [address] [place] [address] Dr. Aleena Rubio Encounters Encounter DateEncounter TypeCare ProviderFacilityStart: 09-29-2024 End: 24-27-3185poluriapxlPYTZGE [facility] Start: 07-26-2024 End: 47-21-6942pqsauycjprDWYEGO [facility] Start: 07-29-2023 End: 37-43-4721avofrgipvgAvbyp V [facility] Start: 07-29-2023 End: 77-62-0629thltywvtojTB Donna M Hoy Work Phone: [facility] Work Phone: Start: 07-29-2023 End: 95-40-6483Ytygttar ReferredMD Donna Hoy Work Phone: [facility]-LAB Path Spec Ke HospStart: 07-17-2023 End: 10-18-0903gwuhbkigsyMksivpf M HoyFacility:[facility] Start: 07-17-2023 End: 00-17-8402wflktefhclDV Donna M Hoy Work Phone: [facility] Work Phone: Start: 07-17-2023 End: 75-71-3087Utkuzsa encounter procedureMD Donna Hoy Work Phone: [facility]-MRI [address] Work Phone: Start: 12-21-2021 End: 52-98-0086pqfpcwrohhTC DONNA HOYFacility:T2Grnah: 12-13-2021 End: 25-46-5741kruvwfrzjyJW DONNA HOYFacility:X5Jnnzm: 08-24-2021 End: 80-15-2738Uaxjkhb encounter procedureLópez Pierson MD Work Phone: OrthopaedicsComment on above:Status post reverse arthroplasty of right shoulder (Primary Dx); Rotator cuff tendinitis, left; Impingement syndrome of left shoulderStart: 04-10-2021 End: 58-34-4885hnzubvszvpJY DONNA HOYFacility:H1 Procedures DateProcedureProcedure DetailPerforming ClinicianStart: 03-58-1159FEL of bilateral breasts with contrastMD Donna Hoy Work Phone: Start: 37-75-2387Ymrbd depression screening assessment López Pierson MD Work Phone: Start: 11-28-2016H/O: artificial jointStatus post reverse replacement of right shoulder joint, [place], 8-2015López Pierson MD Work Phone: Plan of Treatment DateCare ActivityDetailAuthorStart: 00-64-5835FS Breast - bilateralRegency Hospital Cleveland Westtart: 18-37-3257ZRU of bilateral breasts with contrastMR breast BI wo/w con CADRegency Hospital Cleveland Westtart: 41-45-8264Vyupg depression screening assessmentDEPRESSION SCREENINGCorey Hospitaltart: 81-76-0328Uzkiqzpxs vaccinationINFLUENZA (Season Ended)[facility]: 44-82-2536GHEVUWPK SCREENDIABETES SCREENCorey Hospitaltart: 08-02-2013 SHINGRIX VACCINE (1 of 2)SHINGRIX VACCINE (1 of 2)[facility]: 95-93-2719MVVENYLYI (FIT-DNA)COLOGUARD (FIT-DNA)[facility]: 02-38-4636EhzwovipxeaLKCLUTPMIBAFznnrhcnl ClinicStart: 01-67-6098PQJEMOITQM CANCER SCREENINGCOLORECTAL CANCER SCREENINGCorey Hospitaltart: 12-42-0119VV COLONOGRAPHYCT COLONOGRAPHYCorey Hospitaltart: 59-58-8070LOVWN OCCULT BLOOD FECAL OCCULT BLOODCorey Hospitaltart: 93-87-1299DWUCC SCREENLIPID SCREEN [facility]: 89-27-3439SDWUKZXLRXVUEEOKMOPSFWJJUROhvluiost Clinic Start: 69-63-3454ZfiesumvmmiZLMLINZMQAfxrhomhs ClinicStart: 89-71-4362IRY TESTINGHPV TESTINGCorey Hospitaltart: 23-86-7121DQR TESTINGPAP TESTING [facility]: 86-53-9568RUENU PREVNARADULT PREVNARHarrison Community Hospital Start: 91-88-3885ANN PNEUMOVAX 5 YEARS APART PRIOR TO AGE 65 (#1)TWO PNEUMOVAX 5 YEARS APART PRIOR TO AGE 65 (#1)[facility]: 60-44-3563Ormbs microalbumin profileDTAP,TDAP,TD (1 - Tdap)[facility]: 08[birth year]02-1981 HEPATITIS C SCREENINGHEPATITIS C SCREENINGCorey Hospitaltart: 66-32-5305VWO SCREENINGHIV SCREENINGHarrison Community Hospital Payers DatePayer CategoryPayerPolicy [id number] [id number]-[id number] Health [id number] Health InsuranceNOR[facility] [id number] 2020-Present [phone] [address] [address] [place] [address] [id number] Health Insurance [employer] Insurance [id number] Pay [id number] Social History DateTypeDetailFacilityStart: 55-22-1416Wrtgddd smoking status NHISNever smoked tobaccoHarrison Community Hospital Work Phone: Start: 68-23-7402Hfcjziu use and exposureSmokeless tobacco non-userHarrison Community Hospital Work Phone: Start: 23-47-3745Aasnvrk intakeCurrent drinker of alcohol (finding)[facility] Hospitaltart: 40-48-6020Hlmgkjj SDOH Alcohol Comment occasional: twice a week: 2 drinksCorey Hospitaltart: 27-73-6423Sue Assigned At BirthFeParkview Healthtart: 08-14-2021 End: 06-31-9705Esztlpuz to SARS-CoV-2 (event)Not [facility] Medical Equipment Procedure CodeEquipment CodeEquipment Original TextEquipment IdentifierDates Opteform Freeze-Dried [id number]: 53-99-3825Exnx Equinoxe +0mm Humeral Adapter Reverse Shoulder System - [id number]: 55-77-0191Hscpk Equinoxe 38mm +0mm Humeral Reverse Shoulder - [id number]: 87-63-6159Jkou Equinoxe 7mm Humeral Press Fit Primary Shoulder - [id number]: 80-65-1447Ojquibmys 38mm Glenoid Glenosphere Reverse Shoulder - [id number]: 55-80-0092Tyarm Equinoxe Standard Glenoid Reverse - [id number]: 48-09-0292Csuwv Equinoxe 4.5mm Black 22mm Bone Kit Compression Lock Cap Reverse - [id number]: 89-37-1206Kniga Equinoxe 4.5mm White 18mm Bone Kit Compression Lock Cap Reverse - [id number]_impStart: 88-47-4669Vsdot Equinoxe Bone Lock Reverse Shoulder Glenosphere - [id number]: 35-05-1728Gjitc Equinoxe 4.5mm Blue 30mm Bone Kit Compression Lock Cap Reverse - [id number]: 57-34-3557Eyylf Equinoxe 4.5mm White 18mm Bone Kit Compression Lock Cap Reverse - [id number]: 50-91-3683Zng Screw Reverse [employer] Define Shoulder - [id number]_obyXcvey: 11-22-2015 Clinical Notes 11-22-2015 to 09-29-2024 Note Date & WmybFykpUmlohbqo47-22-4466 NoteUT Cardiology [facility] Subjective Aleena Noel is a 59 y.o. [...] , Rfl: amLODIPine (Norva (more content not included)...[facility]04-07-2025 NoteUT Cardiology - [facility] Subjective Aleena Noel is a 58 y.o. year old female patient being seen to establish care. Patient is a self referral for hypertension. Patient has stress test at [facility]. Patient states she has blurry vision [...] by mouth with breakfa (more content not included)...[facility] 12-14-2021 NotePROCEDURE: XR HIP RT 2 3V W PELVIS [...] Electronically authenticated by: ALEX VARGAS Date: 2021-12-14 07:00[facility]05-06-2022 NoteHNO ID: [id number] Author: López Pierson MD Service: ? Author Type: Physician Type: Progress Notes Filed: 08/24/2021 2:28 PM Note Text:

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
--- OUTSIDE RECORDS SUMMARY | 2025-03-13 19:43 | XMS_ITS | Clinical Summary ---
Author Organization [facility] Address [address] [place] [address] Care Team Providers Care Legal Records Manager Name Role Phone Roberto Hess MD Primary Care Provider [phone] Allergies Active AllergyReactionsCriticalityNoted DateCommentsBacitracinSwelling,Unknown 11/25/20137752PlepznrxujVowcq18/11/2025Sulfa (Sulfonamide Antibiotics)Other 07/22/2024 Medications MedicationSigDispense QuantityRefillsLast FilledStart DateEnd DateStatus albuterol 90 mcg/actuation inhaler Inhale 2 puffs every 4 (four) hours if needed.07/13/2024tive aspirin 81 mg capsule Take 81 mg by mouth in the morning.10/14/2014ctive celecoxib (CeleBREX) 200 mg capsule Take 1 capsule by mouth in the morning.5Active cetirizine 10 mg capsule Take 10 mg by mouth in the morning.Active gabapentin (Neurontin) 600 mg tablet Take 600 mg by mouth in the morning.Active hydrOXYzine HCL (Atarax) 25 mg tablet Take 25 mg by mouth 1 (one) time.4Active metoprolol tartrate (Lopressor) 100 mg tablet Take 100 mg by mouth with breakfast and with evening meal.5Active mirtazapine (Remeron) 30 mg tablet Take 30 mg by mouth at bedtime.5Active montelukast (Singulair) 10 mg tablet Take 1 tablet by mouth in the morning.5Active omeprazole (PriLOSEC) [address] capsule Take 40 mg by mouth before breakfast.2Active phenytoin (Dilantin) 50 mg chewable tablet Chew 100 mg two times daily.12/01/2013ctive temazepam (Restoril) 15 mg capsule Take 15 mg by mouth at bedtime.5Active amLODIPine (Norvasc) 10 mg tablet Indications:Uncontrolled hypertensionTake 1 tablet (10 mg) by mouth in the morning. 90 tablet 304//334036/6Active valsartan (Diovan) 320 mg tablet Indications:Uncontrolled hypertensionTake 1 tablet (320 mg) by mouth in the morning. 90 tablet 306/6Active hydroCHLOROthiazide (HYDRODiuril) 25 mg tablet Indications:Uncontrolled hypertensionTake 1 tablet (25 mg) by mouth in the morning. 90 tablet 306/6Active atorvastatin (Lipitor) 20 mg tablet Indications:Mixed hyperlipidemiaTake 1 tablet (20 mg) by mouth at bedtime. 90 tablet /6Active carvedilol (Coreg) 25 mg tablet Indications:Benign hypertensive heart disease without congestive heart failure Take 1 tablet (25 mg) by mouth with breakfast and with evening meal. STOP METOPROLOL 180 tablet /111217/8Active doxazosin (Cardura) 4 mg tablet Indications:Essential hypertensionTake 1 tablet (4 mg) by mouth at bedtime. 90 tablet //6Active Active Problems ProblemNoted DateDiagnosed DateObstructive sleep apnea hlnafzpf31/07/2025Status post replacement of right shoulder joint11/28/2016Injury of right brachial mjnzwj7801/04/2016Osteoarthritis of shoulder due to rotator cuff yjcbhr5101/04/2016 Right arm dovcogfu30/06/2016Pubic bone lneybezr07/25/2014Lymphedema of arm 01/10/2014Depressed tgvfvc5812/23/2013 Overview (07/22/2024): Patient was tearful and anxious on exam. Shivering on exam. Ftrjabvr85/04/2014 Overview (07/22/2024): Assessment: Diagnosed 15yrs ago on the left back, was resected. No sequale. Follows up every year. Last check was in April of 2013. Numbness of right hand12/23/2013 Overview (07/22/2024): Assessment: 2/2 C5-C6 cervical spine injury s/p surgery. Right arm unable to flex or extend. Denies any numbness in particular. Plan: Neurontin 900mg OD. 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 Xlacarubrhhu00/07/2014L5 vertebral tnxnoyab20/07/2014 Overview (07/22/2024): Bilateral TP fxs Qjnfmgszcefp19/07/2014SAH (subarachnoid hemorrhage)11/25/2013 Family History Medical HistoryRelationNameCommentsDiabetesBrotherHeart attackBrotherDiabetes FatherLung diseaseMotherRelationNameStatusCommentsBrotherAliveFatherAliveMother DeceasedSisterAlive Social History Tobacco UseTypesPacks/DayYears UsedDateSmoking Tobacco: NeverSmokeless Tobacco: Never Tobacco Cessation:Counseling Given: Not Answered Alcohol UseStandard Drinks/WeekCommentsNot Asked0 (1 standard drink = 0.6 oz pure alcohol)occasionalCommentsUnknownSex and Gender InformationValue Date RecordedSex Assigned at BirthNot on fileLegal SsbGbmaob23/03/2025 8:57 AM EDTGender IdentityNot on fileSexual OrientationNot on file Last Filed Vital Signs Vital SignReadingTime TakenCommentsBlood Ufymblml015/7909/29/2024 3:02 PM EDT Pbkif351009/29/2024 3:02 PM EDTTemperature--Respiratory Rate--Oxygen Ysifqiuotm69% 09/29/2024 3:02 PM EDTInhaled Oxygen Concentration--Hvslwf73.9 kg (174 lb) 09/29/2024 3:02 PM AWDSundbp652 cm (5' 3 )09/29/2024 3:02 PM EDTBody Mass Index 30.8209/29/2024 3:02 PM EDT Plan of Treatment Health MaintenanceDue DateLast DoneCommentsCT Lnwddqobnyru10/14/1964Colonoscopy 1963Colorectal Cancer Cohyvqmyk24/14/1964FIT-DNA1963FIT1963 FOBT1963 3665Hraaufrmpqrbf58/14/1964Depression Pzktdnjon58/14/1976Pap Smear 08/02/1984Cervical Cancer Bksuksfkv45/14/1994HPV/Tjakxc7508/02/1993Mammogram 2003COVID-19 Vaccine ( season)5105/18/2022, 03/28/2021, 07/28/2020, Additional history existsInfluenza Vaccine (#1)12/20/2024dult Cnygvsy48Zoster CdwemrjmKienrdozz60/11/2021, 02/11/2020HIB VaccinesAged OutNo longer eligible based on patient's age to complete this topic HPV VaccinesAged OutNo longer eligible based on patient's age to complete this topicIPV VaccinesAged OutNo longer eligible based on patient's age to complete this topicMeningococcal B VaccineAged OutNo longer eligible based on patient's age to complete this topicMeningococcal VaccineAged OutNo longer eligible based on patient's age to complete this topicPneumococcal Vaccine: Pediatrics (0 to 5 Years) and At-Risk Patients (6 to 64 Years)Aged OutNo longer eligible based on patient's age to complete this topicRotavirus VaccinesAged OutNo longer eligible based on patient's age to complete this topic Insurance Care Teams Team MemberRelationshipSpecialtyStart Date Roberto Hess MD [address] [address] PCP - [facility]07/26/24
--- OUTSIDE RECORDS SUMMARY | 2025-03-13 19:43 | XMS_ITS | Clinical Summary ---
Author Organization [facility] Address [address], [address] [place] [address] Care Team Providers Care Unified Communications Engineer Name Role Phone Roberto Hess MD Primary Care Provider [phone] Allergies Active AllergyReactionsCriticalityNoted FadnYrcnkixyFhzqzhglldKpcoldje63/07/2014 Egg Protein (Egg White)12/21/2013 Medications MedicationSigDispense QuantityRefillsLast FilledStart DateEnd DateStatus phenytoin (DILANTIN) 50 MG tablet Take 2 tablets by mouth 3 times daily for 3 days. 18 tablet ctive docusate sodium (COLACE) 100 MG capsule Take 1 capsule by mouth 2 times daily. Take while on narcotics. Hold for loose bowel movements 100 capsule ctive mineral oil-hydrophilic petrolatum (AQUAPHOR) ointment Apply 1 applicator topically as needed for Dry Skin. Apply topically as needed. Active oxyCODONE-acetaminophen (PERCOCET) 5-325 MG per tablet Take 1 tablet by mouth every 4 hours as needed for Pain.Active oxyCODONE (OXYCONTIN) 10 MG CR tablet Take 10 mg by mouth every 12 hours.Active polyethylene glycol (GLYCOLAX) packet Take 17 g by mouth daily as needed.Active predniSONE (DELTASONE) 10 MG tablet Take 10 mg by mouth every other day. Weaning off.Active senna (SENOKOT) 8.6 MG tablet Take 2 tablets by mouth daily.Active white petrolatum GEL Apply topically as needed.Active gabapentin (NEURONTIN) 600 MG tablet Take 600 mg by mouth daily. 12/21/13 Dose pack. 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 Wiebgyrbdnah13/07/2014brasion, multiple sites11/25/2013 Overview (11/25/2013): Including bilateral knees, left ankle, right posterior arm, left temporal region, bilateral hands, right flank, right shoulder Fracture of right inferior pubic ramus11/25/2013 Overview (11/25/2013): Displaced fracture of the right inferior pubic ramus. Sacral /07/2014L5 vertebral tulooqtq53/07/2014 Overview (11/25/2013): Bilateral TP fxs Kzvqywtsazuz69/07/2014Right acetabular wspruuzp26/07/2014 Overview (11/25/2013): Nondisplaced fracture through the anterior column of the right acetabulum near the junction of the superior pubic ramus. Resolved Problems ProblemNoted DateDiagnosed DateResolved TxktCgmsetstrsm24 Grfviwdbmejce12 Immunizations ImmunizationAdministration DatesNext DueTd, unspecified kfrybawpezc03/07/2014 Social History Tobacco UseTypesPacks/DayYears UsedDateSmoking Tobacco: NeverAlcohol UseStandard Drinks/WeekCommentsYes0 (1 standard drink = 0.6 oz pure alcohol)occasionally CommentsNoSex and Gender InformationValueDate RecordedSex Assigned at BirthNot on fileLegal SqaLehrux55/07/2014 6:28 PM EDTGender IdentityNot on file Sexual OrientationNot on file Last Filed Vital Signs Vital SignReadingTime TakenCommentsBlood Bkkzucjc777/7509 11:30 AM EDT Kxabz19532/02/2014 11:30 AM ATAFwtdmhmoodn27 ??C (98.6 ??F)12/21/2013 7:34 AM EDTRespiratory Vahx527112/21/2013 11:30 AM EDTOxygen Qijsluiibt24%12/21/2013 10:00 AM EDTInhaled Oxygen Concentration--Clypzc79.6 kg (116 lb)12/21/2013 7:34 AM EDT Fwywxz708 cm (5' 3 )12/21/2013 7:34 AM EDTBody Mass Index20.55012/21/2013 7:34 AM EDT Plan of Treatment Not on file Advance Directives * Full Code (Latest Code Status on File) Date ActivatedDate InactivatedComments12/21/2013 9:09 AM12/21/2013 2:31 PM * Full Code Date ActivatedDate InactivatedComments12/21/2013 7:09 AM12/21/2013 9:09 AM * Full Code Date ActivatedDate InactivatedComments11/25/2013 9:53 PM12/03/2013 9:08 PM Care Teams Team MemberRelationshipSpecialtyStart DateEnd Roberto Hess MD [address] [place] [address] [facility]12/15/13
--- OUTSIDE RECORDS SUMMARY | 2025-03-13 19:44 | XMS_ITS | Patient Health Record ---
Author Organization [facility] in [place] Address [address] [place] [address] Care Team Providers Care Superintendent [employer] Name Role Phone Constantine Hess Primary Care Provider [phone] Allergies Allergen (clinical drug ingredient) Drug/Non Drug Allergy documented on EMR Reaction Allergy Type Onset Date Status bacitracin Bacitracin oozing Drug Allergy ActivepseudoephedrineZephrex-DunknownDrug AllergyActivecefdinirCefdinirthroat swelling/ cough/ itchingDrug AllergyActiveSubstance with sulfonamide structure and antibacterial mechanism of action (substance)Sulfa AntibioticsunknownDrug AllergyActive Results Component Value Reference Range Notes CBC AUTO DIFF Reviewed date:11/03/2024 12:51:37 PM Interpretation: Performing Lab: Notes/Report: [facility] , White Blood Count 4.7 4.0-11.0 10 3/uL Red Blood Count4.454.20-5.40 10 6/lALdnihqxexy23.112.0-16.0 g/vGVmxowpjzcm59.6 36.0-48.0 %Mean Corpuscular Uxldjg82.781.0-99.0 fLMean Corpuscular Hemoglobin 29.426.7-34.0 pgMean Corpuscular HGB Conc33.929.9-35.2 g/dLRed Cell Distribution Width12.211.0-15.0 %Platelet Zrzyd525039-383 10 3/uLMean Platelet Volume9.79.5- 13.5 fLNeutrophils Percent Auto56.543.0-75.0 %Lymphocytes Percent Auto23.820.5- 60.0 %Monocytes Percent Auto9.11.7-12.0 %Eosinophils Percent Auto8.70.9-7.0 % Basophils Percent Auto1.70.2-2.0 %Immature Granulocytes Pct Auto0.20.0-0.5 % Neutrophils Absolute Auto2.71.4-6.5 10 3/uLLymphocytes Absolute Auto1.11.2-3.8 10 3/uLMonocytes Absolute Auto0.40.3-0.8 10 3/uLEosinophils Absolute Auto0.40.0- 0.7 10 3/uLBasophils Absolute Auto0.10.0-0.1 10 3/uLImmature Granulocytes Abs Auto0.010.00-0.03 10 3/uLPerforming Lab:see noteML - [facility] LB PROF 14(COMP METB) Reviewed date:11/03/2024 05:16:18 PM Interpretation: Performing Lab: Notes/Report: [facility] ,Ymhuow662159-450 mmol/LPotassium4.33.5-5.1 mmol/ZLnhhyfaj75123-573 mmol/LCarbon Vtwecop43.621.0-32.0 mmol/LAnion Gap11.5Qjhzshu8594-160 mg/dLBlood Urea Nitrogen 22.07.0-18.0 mg/dLCreatinine1.030.55-1.02 mg/dLEstimated GFR ( Gilda>60 >=60 mL/min/1.73m 2Estimated GFR (Non- Ame54>=60 mL/min/1.73m 2BUN Creatinine Ratio21.3Ajancba6.48.5-10.1 mg/dLBilirubin Total0.90.2-1.0 mg/dL Aspartate Amino Iwivswsdmoe7166-05 U/LAlanine Skhupihsotawlgvm0230-42 U/L Alkaline Uxtsxiwolmu0227-818 U/LTotal Protein6.86.4-8.2 g/dLAlbumin Level3.83.4- 5.0 g/dLGlobulin3.0Albumin Globulin Ratio1.3Performing Lab:see noteML - [facility] LBUA (Urinalysis, Dipstix only - w/o micro) Reviewed date:11/18/2024 09:15:58 AM Interpretation: Performing Lab: Notes/Report: COLORyellowYellow - Rekha -CLARITYclearClear - ClearGLUCOSE-0 - 133 MG/DLALBUMIN -NEG - NEG MG/DLBILIRUBIN-NEG - NEG MG/DLSPECIFIC GRAVITY1.0151.001 - 1.035 KETONES-NEG - NEG MG/DLBLOOD, UR-PH, UR6.05 - 9UROBILNOGEN-0.2 - 1 MG/DLNITRITE- NEG - NEGESTERASE (ROMAIN)-NEG - NEG MG/DLXR lumbar spine 2-3V Reviewed date:11/29/2024 07:41:10 PM Interpretation: Performing Lab: Notes/Report: Source Facility: [place] [address] XRay Report Signed Patient: ALEENA NOEL MR#: [id number] : 1965 Acct:[id number] Age/Sex: 59 / F ADM Date: 11/29/24 Loc: RAD Attending Dr: Donna Hess M.D. Ordering Physician: Donna Hess M.D. Date of Service: 11/29/24 Procedure(s): XR lumbar spine 2-3V Accession Number(s): [id number] cc: Donna Hess M.D. [place] [address] Patient Name: ALEENA NOEL MRN: [id number] date: 1965 Sex: F Assigned Patient Location: [facility] Current Patient Location: RAD Accession/Order Number: [id number] Exam Date: 11/29/2024 16:06 Report Date: 11/29/2024 16:06 At the request of: DONNA HESS MD Procedure: XR lumbar spine 2-3V LUMBAR SPINE - 2 views CLINICAL HISTORY: Flank Pain COMPARISON: Lumbar spine 12/13/2021 FINDINGS: Vertebral heights appear maintained. No significant disc space narrowing. Mild endplate and facet joint degenerative change. XR/XR lumbar spine 2-3V IMPRESSION: MILD DEGENERATIVE CHANGES WITHOUT SIGNIFICANT DISC HEIGHT LOSS. Impression dictated by: Darien Hudson Jr., D.O. 11/29/2024 4:06 PM Dictation Location: [place] [address] Electronically authenticated by: [id number] Y Date: 11/29/2024 16:06 Dictated By: Darien Hudson M.D. Signed By: 11/29/24 1609 DD/ 1606 TD/TT: Vice President Of Communications:CBC AUTO DIFF Reviewed date:06/05/2024 01:41:31 PM Interpretation: Performing Lab: Notes/Report: [facility] ,White Blood Count3.84.0-11.0 10 3/uLRed Blood Count5.284.20-5.40 10 6/uL Koksfxjocn21.412.0-16.0 g/kAYrodacazpg25.136.0-48.0 %Mean Corpuscular Ocvuto73.4 81.0-99.0 fLMean Corpuscular Bmllxfytll19.226.7-34.0 pgMean Corpuscular HGB Conc 34.129.9-35.2 g/dLRed Cell Distribution Width12.211.0-15.0 %Platelet Bymut032 150-450 10 3/uLMean Platelet Volume9.29.5-13.5 fLNeutrophils Percent Auto48.5 43.0-75.0 %Lymphocytes Percent Auto29.720.5-60.0 %Monocytes Percent Auto8.01.7- 12.0 %Eosinophils Percent Auto10.90.9-7.0 %Basophils Percent Auto2.40.2-2.0 % Immature Granulocytes Pct Auto0.50.0-0.5 %Neutrophils Absolute Auto1.81.4-6.5 10 3/uLLymphocytes Absolute Auto1.11.2-3.8 10 3/uLMonocytes Absolute Auto0.30.3-0.8 10 3/uLEosinophils Absolute Auto0.40.0-0.7 10 3/uLBasophils Absolute Auto0.10.0- 0.1 10 3/uLImmature Granulocytes Abs Auto0.020.00-0.03 10 3/uLPerforming Lab:see noteML - [facility] LBFREE T3 Reviewed date:06/05/2024 01:41:31 PM Interpretation: Performing Lab: Notes/Report: [facility] ,Free T33.262.18-3.98 pg/mLPerforming Lab:see note - [facility] LB GLYCOHEMOGLOBIN A1C Reviewed date:06/05/2024 01:41:31 PM Interpretation: Performing Lab: Notes/Report: [facility] ,Glycohemoglobin A1C5.44.5-6.2 % ADA RECOMMENDED LIMIT 4.0 - 6.0 ADA THERAPEUTIC TARGET < 7.0 ACTION SUGGESTED > 7.0 Estimated Average Ydpyotp487Nnumkftpvr Lab:see note - [facility] LB INSULIN Reviewed date:06/05/2024 01:41:31 PM Interpretation: Performing Lab: Notes/Report: [facility] ,Insulin7.42.6-24.9 uIU/mL Performed at: [address] [id number] [employer]: Joe Douglass PhD, Phone: [phone] Performing Lab:[facility] LBLIPID PROFILE Reviewed date:06/05/2024 01:41:31 PM Interpretation: Performing Lab: Notes/Report: [facility] ,Ooyetmzmmfdsf51<=150 mg/xJRvfzhwbiigx897<=200 mg/dLHDL Qeucsgvqrdo1364-33 mg/dL > or =60 mg/dl - LOW CARDIOVASCULAR RISK <40 mg/dl - HIGH CARDIOVASCULAR RISK LDL Cholesterol Oabnfwcjtz982.0 <100 mg/dl OPTIMAL 100-129 mg/dl NEAR OR ABOVE OPTIMAL 130-159 mg/dl BORDERLINE HIGH 160-189 mg/dl HIGH >190 mg/dl VERY HIGH VLDL AAXGIFHBDEP16.6Chol HDL Ratio3.6 3.3 - 4.4 LOW RISK 4.4 - 7.1 AVERAGE RISK 7.1 - 11.0 MODERATE RISK >11.0 HIGH RISK Performing [facility] LBPROF 14(COMP METB) Reviewed date:06/05/2024 01:41:31 PM Interpretation: Performing Lab: Notes/Report: [facility] ,Jypjhn929913-648 mmol/LPotassium3.73.5-5.1 mmol/EMasxnort34869-231 mmol/LCarbon Gjqjcuv86.221.0-32.0 mmol/LAnion Gap10.7Ijhmcva4410-770 mg/dLBlood Urea Nitrogen 28.07.0-18.0 mg/dLCreatinine0.860.55-1.02 mg/dLEstimated GFR ( Gilda>60 >=60 mL/min/1.73m 2Estimated GFR (Non- Estrellita>60>=60 mL/min/1.73m 2BUN Creatinine Ratio32.6Orinhfl0.28.5-10.1 mg/dLBilirubin Total0.90.2-1.0 mg/dL Aspartate Amino Uhqzqbzfkmw1870-77 U/LAlanine Helmmtcghhkruttt2648-27 U/L Alkaline Qcipsgrrxzr8909-609 U/LTotal Protein6.96.4-8.2 g/dLAlbumin Level3.83.4- 5.0 g/dLGlobulin3.1Albumin Globulin Ratio1.2Performing Lab:see note - [facility] LBT4 Reviewed date:06/05/2024 01:41:31 PM Interpretation: Performing Lab: Notes/Report: [facility] ,T4 Thyroxine8.104.80-13.90 ug/dLPerforming Lab:see note - [facility] LBTSH Reviewed date:06/05/2024 01:41:31 PM Interpretation: Performing Lab: Notes/Report: [facility] ,Thyroid Stimulating Hormone0.6760.358-3.740 uIU/mLPerforming Lab:see note - [facility] LBVITAMIN D 25 [place] Reviewed date:06/05/2024 01:41:31 PM Interpretation: Performing Lab: Notes/Report: [facility] ,Vitamin D53.2 <20 ng/mL Vit D deficient 20-<30 ng/mL Vit D insufficient 30-100 ng/mL Vit D sufficient >100 ng/mL Potential Toxicity Performing Lab:see noteML - [facility] LBOccult Blood* Reviewed date:06/05/2024 01:41:31 PM Interpretation: Performing Lab: Notes/Report: [facility] ,Occult BloodNegativePerforming Lab:see note - [facility] LBCRP Reviewed date:06/18/2024 01:05:37 PM Interpretation: Performing Lab: Notes/Report: [facility] ,C Reactive Protein<0.50<=0.50 mg/dLPerforming Lab:see noteML - [facility] LBURIC ACID SERUM Reviewed date:06/18/2024 01:05:37 PM Interpretation: Performing Lab: Notes/Report: [facility] ,Uric Acid3.22.6-6.0 mg/dLPerforming Lab:see noteML - [facility] LB Lupus Anticoagulant Reflex Reviewed date:06/21/2024 08:59:49 PM Interpretation: Performing Lab: Notes/Report: [facility] ,PTT-LA31.00.0-43.5 znieMUFW68.00.0-47.0 secLupus Reflex InterpretationComment:. No lupus anticoagulant was detected. Performed at: - [facility] [id number] [employer]: Fletcher Alvarado MD, Phone: [phone] Performing Lab:see note - [facility] LBNM josie perf SPECT rest str Reviewed date:07/22/2024 05:13:54 PM Interpretation: Performing Lab: Notes/Report: Source Facility: [place] [address] [place] [address] Nuclear Medicine Report Signed Patient: ALEENA NOEL MR#: [id number] : 1965 Acct:[id number] Age/Sex: 58 / F ADM Date: 07/20/24 Loc: NM Attending Dr: Donna Hess M.D. Ordering Physician: Donna Hess M.D. Date of Service: 07/20/24 Procedure(s): NM josie perf SPECT rest str Accession Number(s): [id number] cc: Donna Hess M.D. Patient Name: ALEENA NOEL MR#: [id number] : 1965 Exam Date: 07/20/2024 Ordering Doctor: DR Donna Hess . RADIOLOGY REPORT PROCEDURE: NM JOSIE [...] the study was pending per attending physician [facility] . For more details please [...] Signed By: 07/22/24 1307 DD/ 1306 TD/TT: Vice President Of Communications:PROF DANTE Fontaine ([facility]) Reviewed date:08/13/2024 08:57:17 AM Interpretation: Performing Lab: Notes/Report: [facility] ,Fwjjse500077-550 mmol/LPotassium4.03.5-5.1 mmol/CNymygtcd29156-290 mmol/LCarbon Mrroxrn23.821.0-32.0 mmol/LAnion Gap11.5Afufcne18881-323 mg/dLBlood Urea Vjvlngoh74.07.0-18.0 mg/dLCreatinine0.910.55-1.02 mg/dLEstimated GFR ( Gilda>60>=60 mL/min/1.73m 2Estimated GFR (Non- Estrellita>60>=60 mL/min/1.73m 2BUN Creatinine Ratio36.6Vuxybzv8.08.5-10.1 mg/dLPerforming Lab:see noteML - [facility] LBCA echo doppler complete Reviewed date:08/21/2024 05:08:25 PM Interpretation: Performing Lab: Notes/Report: Source Facility: [facility]-[address] [place] [address] [place] [address] Cardiology Report Signed Patient: ALEENA NOEL MR#: [id number] : 1965 Acct:[id number] Age/Sex: 59 / F ADM Date: 08/20/24 Loc: CARD Attending Dr: AVA JOHNSON Ordering Physician: AVA JOHNSON Date of Service: 08/20/24 Procedure(s): CA echo doppler complete Accession Number(s): [id number] cc: Donna Hess M.D.; AVA JOHNSON Patient Name: ALEENA NOEL MR#: [id number] : 1965 Exam Date: 08/20/2024 Ordering Doctor: [...] Area (VTI): 2.13 cm2, 2.13 cm2 Deceleration [place]: Pressure Half-Time: Peak Velocity(Antegrade Flow): 1.24 m/s [...] M.D. Signed By: 08/20/241751 DD/ 50 TD/TT: Vice President Of Communications:LIPID PROFILE Reviewed date:10/29/2024 12:58:34 PM Interpretation: Performing Lab: Notes/Report: [facility] ,Botlthrzoklxe819<=150 mg/zCTheiokqghqb843<=200 mg/dLHDL Qmtagdfspvh0756-06 mg/dL > or =60 mg/dl - LOW CARDIOVASCULAR RISK <40 mg/dl - HIGH CARDIOVASCULAR RISK LDL Cholesterol Ufhigcgbep04.8 <100 mg/dl OPTIMAL 100-129 mg/dl NEAR OR ABOVE OPTIMAL 130-159 mg/dl BORDERLINE HIGH 160-189 mg/dl HIGH >190 mg/dl VERY HIGH VLDL WNDNMXIXNLO87.2Chol HDL Ratio2.8 3.3 - 4.4 LOW RISK 4.4 - 7.1 AVERAGE RISK 7.1 - 11.0 MODERATE RISK >11.0 HIGH RISK Performing Lab:see noteML - [facility] LBPROF 14(COMP METB) Reviewed date:10/29/2024 12:58:34 PM Interpretation: Performing Lab: Notes/Report: [facility] ,Bwsjla315878-398 mmol/LPotassium4.43.5-5.1 mmol/QLpsthaom68216-604 mmol/LCarbon Hwmvztg71.421.0-32.0 mmol/LAnion Gap16.3Rileolk70866-599 mg/dLBlood Urea Qbqktrmq90.07.0-18.0 mg/dLCreatinine1.680.55-1.02 mg/dLEstimated GFR ( Ietegkn42>=60 mL/min/1.73m 2Estimated GFR (Non- Ame31>=60 mL/min/1.73m 2 BUN Creatinine Ratio24.8Ytiwqia6.78.5-10.1 mg/dLBilirubin Total0.90.2-1.0 mg/dL Aspartate Amino Vrfitxsgzwt9056-42 U/LAlanine Ywlsgoylyqjvmfvs1111-63 U/L Alkaline Zzqpyehvuwc9154-249 U/LTotal Protein7.06.4-8.2 g/dLAlbumin Level3.93.4- 5.0 g/dLGlobulin3.1Albumin Globulin Ratio1.3Performing Lab:see noteML - [facility] LBUS renal BI Reviewed date:12/02/2024 12:36:16 PM Interpretation: Performing Lab: Notes/Report: Source Facility: [facility]-[address] [place] [address] [place] [address] Ultrasound Report Signed with Addenda Patient: ALEENA NOEL MR#: [id number] : 1965 Acct:[id number] Age/Sex: 59 / F ADM Date: 12/01/24 Loc: US Attending Dr: Donna Hess M.D. Ordering Physician: Donna Hess M.D. Date of Service: 12/01/24 Procedure(s): US renal BI Accession Number(s): [id number] cc: Donna Hess M.D. ADDENDUM [place] [address] This is an addendum Additional imaging of the urinary bladder was obtained. Bladder volume prevoiding is 334 mL. Postvoid is 21 mL. Bilateral ureteral jets were noted. Next Addendum Dictated By: Darien Hudson M.D. Addendum Signed By: 12/02/24 0 930 Addendum Cosigned By: DD/ TD/TT: / ADDENDUM US/US renal BI IMPRESSION: Unremarkable urinary bladder ultrasound. Impression dictated by: Darien Hudson Jr., D.O. 12/02/2024 9:27 AM Dictation Location: [address] Electronically authenticated by: [id number] Y Date: 12/02/2024 09:27 atient Name: ALEENA NOEL MRN: [id number] date: 1965 Sex: F Assigned Patient Location: Current Patient Location: [facility] Accession/Order Number: [id number] Exam Date: 12/02/2024 09:25 Report Date: 12/02/2024 09:27 At the request of: DONNA HESS MD Procedure: US renal BI [address] [id number] Patient Name: ALEENA NOEL MRN: [id number] date: 1965 Sex: F Assigned Patient Location: US Current Patient Location: US Accession/Order Number: [id number] Exam Date: 12/01/2024 12:37 Report Date: 12/01/2024 12:38 At the request of: DONNA HESS MD Procedure: US renal BI BILATERAL RENAL AND BLADDER ULTRASOUND CLINICAL HISTORY: Flank pain COMPARISON: None FINDINGS: Estimation of renal size is approximately 10.4 cm on the right and 9.9 cm on the left. No contour deforming mass, shadowing stone or hydronephrosis. The urinary bladder is partially distended with a volume of 561 ml. No shadowing stone or focal lesion. IMPRESSION: No acute findings. Impression dictated by: Darien Hudson Jr., D.O. 12/01/2024 12:38 PM Dictation Location: [place] [address] Electronically authenticated by: [id number] Y Date: 12/01/2024 12:38 Addendum Dictated By: Darien Hudson M.D. Addendum Signed By: 12/02/24 0 930 Addendum Cosigned By: DD/ TD/TT: / [place] [id number] Patient Name: ALEENA NOEL MRN: [id number] date: 1965 Sex: F Assigned Patient Location: US Current Patient Location: US Accession/Order Number: [id number] Exam Date: 12/01/2024 12:37 Report Date: 12/01/2024 12:38 At the request of: DONNA HESS MD Procedure: US renal BI BILATERAL RENAL AND BLADDER ULTRASOUND CLINICAL HISTORY: Flank pain COMPARISON: None FINDINGS: Estimation of renal size is approximately 10.4 cm on the right and 9.9 cm on the left. No contour deforming mass, shadowing stone or hydronephrosis. The urinary bladder is partially distended with a volume of 561 ml. No shadowing stone or focal lesion. US/US renal BI IMPRESSION: No acute findings. Impression dictated by: Darien Hudson Jr., D.O. 12/01/2024 12:38 PM Dictation Location: [place] [address] Electronically authenticated by: [id number] Y Date: 12/01/2024 12:38 Dictated By: Darien Hudson M.D. 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: : 1965 Requested By: [id number] Order Number: [id number] Reading MD: Measurements Intervals [place] Rate: 94 P: 63 WA: 142 QRS: 53 QRSD: 88 T: 38 QT: 350 QTc: 402 Interpretive Statements 1100 Sinus rhythm [address] depression 9130 borderline ECG No previous ECG available for comparison Dictated By: Darren Franco Signed By: DD/ 08 TD/TT: Vice President Of Communications:Antistreptolysin O Ab Reviewed date:06/22/2024 06:28:16 PM Interpretation: Performing Lab: Notes/Report: [facility] ,Antistreptolysin O Ab65.00.0-200.0 IU/mL Performed at: [address] [id number] [employer]: Joe Douglass PhD, Phone: [phone] Performing Lab:see [facility] LBRHEUMATOID FACTOR Reviewed date:06/22/2024 06:28:16 PM Interpretation: Performing Lab: Notes/Report: [facility] ,Rheumatoid Factor (RF)<10.0<14.0 IU/mLPerforming Lab:see [facility] LBANA by IFA Reviewed date:06/22/2024 06:28:16 PM Interpretation: Performing Lab: Notes/Report: [facility] ,Antinuclear Antibodies, IFANegative. Negative <1:80 Borderline 1:80 Positive >1:80 ICAP nomenclature: AC-0 For more information about Hep-2 cell patterns use ANApatterns.org, the official website for the International Consensus on Antinuclear Antibody (ALIDA) Patterns (ICAP). Performed at: [address] [id number] [employer]: Joe Douglass PhD, Phone: [phone] Performing Lab:see [facility] LBIRON Reviewed date:06/05/2024 01:41:31 PM Interpretation: Performing Lab: Notes/Report: [facility] ,Iron96.050.0-170.0 ug/dLPerforming Lab:see sonia - [facility] LB COVID-19, Flu A+B IH Reviewed date:06/05/2024 01:41:31 PM Interpretation: Performing Lab: Notes/Report: COVID-FLU A-FLU B-Control+UA RANDOM W or MICROSCOPIC Reviewed date:10/31/2024 03:32:38 PM Interpretation: Performing Lab: Notes/Report: [facility] ,Color UrineLT. YELLOWYELLOWClarity UrineCLEARCLEARSpecific Penrose Urine1.015 1.005-1.025pH Urine6.05.0-9.0Protein UrineNEGATIVENEG/TRACE mg/dLGlucose Urine UANEGATIVENEGATIVE mg/dLBilirubin UrineNEGATIVENEGATIVEKetones UrineNEGATIVE NEGATIVE mg/dLBlood UrineNEGATIVENEGATIVENitrite UrineNEGATIVENEGATIVE Urobilinogen Urine0.20.2-1.0 EU/dLLeukocyte Esterase UrineTRACENEGATIVEWBC Urine 0-2NONE SEEN #/HPFRBC UrineNONE SEEN0-2 #/HPFBacteria UrineTRACENONE SEEN #/HPF Mucus UrineNONE SEENNONE SEENSquamous Epithelial Cell UrineFEWNONE/RARE #/LPF Crystals Seen?None SeenNone Seen #/HPFCast Seen?SEENNONE SEEN #/LPFHyaline Casts UrineFEWUrine Culture IndicatedNOPerforming Lab:see noteML - [facility] LBPROF CHEM 8 (BAS METB) Reviewed date:10/31/2024 03:32:38 PM Interpretation: Performing Lab: Notes/Report: [facility] ,Vgmuui464756-462 mmol/LPotassium3.43.5-5.1 mmol/LRlwstqch44573-695 mmol/LCarbon Fhtxbkh66.921.0-32.0 mmol/LAnion Gap12.6Fknuuie96533-545 mg/dLBlood Urea Jbpazdqh54.07.0-18.0 mg/dLCreatinine1.760.55-1.02 mg/dLEstimated GFR ( Nhbtvfw55>=60 mL/min/1.73m 2Estimated GFR (Non- Ame29>=60 mL/min/1.73m 2 BUN Creatinine Ratio26.3Wfjdham0.68.5-10.1 mg/dLPerforming Lab:see noteML - [facility] LBCBC AUTO DIFF Reviewed date:10/31/2024 03:32:37 PM Interpretation: Performing Lab: Notes/Report: [facility] ,White Blood Count7.24.0-11.0 10 3/uLRed Blood Count4.624.20-5.40 10 6/uL Cdnhpvtikg16.812.0-16.0 g/rBLtpyjxvgre18.136.0-48.0 %Mean Corpuscular Ngqnyw12.8 81.0-99.0 fLMean Corpuscular Pddckiypig86.926.7-34.0 pgMean Corpuscular HGB Conc 34.429.9-35.2 g/dLRed Cell Distribution Width12.511.0-15.0 %Platelet Fkdel348 150-450 10 3/uLMean Platelet Volume9.99.5-13.5 fLNeutrophils Percent Auto65.5 43.0-75.0 %Lymphocytes Percent Auto19.320.5-60.0 %Monocytes Percent Auto8.91.7- 12.0 %Eosinophils Percent Auto4.90.9-7.0 %Basophils Percent Auto1.10.2-2.0 % Immature Granulocytes Pct Auto0.30.0-0.5 %Neutrophils Absolute Auto4.71.4-6.5 10 3/uLLymphocytes Absolute Auto1.41.2-3.8 10 3/uLMonocytes Absolute Auto0.60.3- 0.8 10 3/uLEosinophils Absolute Auto0.40.0-0.7 10 3/uLBasophils Absolute Auto0.1 0.0-0.1 10 3/uLImmature Granulocytes Abs Auto0.020.00-0.03 10 3/uLPerforming Lab:see noteML - [facility] LBECG 12 lead Reviewed date:11/02/2024 04:32:44 PM Interpretation: Performing Lab: Notes/Report: Source Facility: [facility]-[address] [place] [address] Electrocardiograph Report Signed Patient: ALEENA NOEL MR#: [id number] : 1965 Acct:[id number] Age/Sex: 59 / F ADM Date: 10/29/24 Loc: ER Attending Dr: Ordering Physician: Gabbie Vu D.O. 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 Signed By: 11/02/241615 DD/ 21 TD/TT: Vice President Of Communications: Reason For Referral No Information Medications Medication SIG (Take, Route, Frequency, Duration) Notes Start Date End Date Status tiZANidine HCl 4 MG 2 tabs Orally qhs; Duration: 10 days 5ActiveMeloxicam 7.5 MG1 tablet Orally Once a day; Duration: 90 days 11/18/2024tiveMirtazapine 30 MG1 tablet at bedtime Orally Once a day; Duration: 30 days5ActiveCarvedilol 25 MG1 tablet with food Orally Twice a day5ActiveMeclizine HCl 25 MG1 tablet as needed Orally QIDPRN 4ActiveAzelastine HCl 0.05 %1 drop into affected eye Ophthalmic Twice a day; Duration: 30 days4ActiveValsartan 320 MG1 tablet Orally Once a day; Duration: 30 days10/04/2024tiveAtorvastatin Calcium 20 MG1 tablet Orally Once a day; Duration: 30 days5ActiveSingulair 10 MG1 tablet Orally Once a day; Duration: 30 days5ActiveAspirin Adult Low Dose 81 MG1 tablet Orally Once a day5ActiveamLODIPine Besylate 10 MG1 tablet Orally Once a day; Duration: 30 days5ActiveMultivitaminActiveMagnesiumActive hydrOXYzine HCl 25 mgTAKE ONE TABLET BY MOUTH FOUR TIMES A DAY NEEDED FOR 15 DAYS; Duration: 15PRNActiveCollagenActiveZyrTECActiveVentolin HFA 108 (90 Base) MCG/ACT2 puff as needed Inhalation every 4 hrs; Duration: [id number] Immunizations Vaccine Route Administration Date Status Comme nts Comirvenitay Pfizer Syringe Pre -Filled 30 mcg/0.3 mL Unknown 03/18/2023 Administered SARS-COV-2 (COVID 19 Pfizer 30mcg/0.3mL)Uwyqkhh48/19/7334PrguihzyzmpkILTF-PYK-0 (COVID 19 Pfizer 30mcg/0.3mL)Nymswdu92/09/7817KowmhpqwxgcwPZER-SQU-6 (COVID 19 Pfizer 30mcg/0.3mL)Hsmaife53/08/2021AdministeredTdap (Boostrix)Uaninlc1703/18/2023 AdministeredZOSTER (SHINGLES) VACCINE (HZV)Fgdbpzz2402/11/2020AdministeredZOSTER (SHINGLES) VACCINE (HZV)Mswrpzs23/11/2021Administered Social History Tobacco Use: Social History Observation Description Date Details (start date - stop date) Never Smoker NA - NA Tobacco Use/Smoking Question Answer Notes Patient is a nonsmoker Alcohol Screen (Audit-C) Question Answer Notes Did you have a drink containing alcohol in the p ast year? No Jzvgqv5TlpjjzxfdpjihyIhuydleiCDRCN-Y (Standard) Question Answer Notes Did you have a drink containing alcohol in the p ast year? Yes How often did you have a drink containing alcohol in the past year?2 to 4 times a month (2 points)How many drinks did you have on a typical day when you were drinking in the past year?1 or 2 drinks (0 point)How often did you have six or more drinks on one occasion in the past year?Less than monthly (1 point)Points3 InterpretationPositive Problems Problem Type SNOMED Code ICD Code Onset Dates Problem Status W/U Status Risk Notes Problem Hypertension (60876552) Hypertension (I10 ) ActiveconfirmedProblemCervical radiculopathy (90366930)Cervical radiculopathy (M54.12)ActiveconfirmedProblemAnxiety (52974812)Anxiety (F41.9)Activeconfirmed ProblemObstructive sleep apnea syndrome (38170752)CHE (obstructive sleep apnea) (G47.33)ActiveconfirmedProblemDeep venous thrombosis (886543996)DVT (deep venous thrombosis) (I82.409)ActiveconfirmedProblemMigraine (85583632)Migraine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
[2025-03-13 19:50] LABS: Hematocrit 40.8 % (36.0-48.0); Hemoglobin 13.8 g/dL (12.0-16.0); Immature Granulocytes Abs Auto 0.00 10^3/uL (0.00-0.03); Immature Granulocytes Pct Auto 0.0 % (0.0-0.5); Lymphocytes Absolute Auto 1.4 10^3/uL (1.2-3.8); Mean Corpuscular HGB Conc 33.8 g/dL (29.9-35.2); Mean Corpuscular Hemoglobin 28.6 pg (26.7-34.0); Mean Corpuscular Volume 84.6 fL (81.0-99.0); Platelet Count 153 10^3/uL (150-450); Red Blood Count 4.82 10^6/uL (4.20-5.40); White Blood Count 4.7 10^3/uL (4.0-11.0)
[2025-03-13] MEDS: LABETALOL HCL 20 MG/4 ML SYRINGE IVP (19:55)
--- NOTE | 2025-03-13 20:04 | PC.NURSE ---
IVP labetolol push completed at this time
[2025-03-13 20:14] LABS: INR 1.02; Partial Thromboplastin Time 24.1 sec (22.3-36.2); Prothrombin Time 10.8 sec (9.0-11.6)
[2025-03-13 20:16] LABS: Alanine Aminotransferase 36 U/L (14-59); Albumin Globulin Ratio 1.2; Albumin Level 3.7 g/dL (3.4-5.0); Alkaline Phosphatase 95 U/L (46-116); Anion Gap 9.4; Aspartate Amino Transferase 22 U/L (15-37); Blood Urea Nitrogen 27.0 mg/dL (7.0-18.0); Calcium 9.1 mg/dL (8.5-10.1); Carbon Dioxide 29.7 mmol/L (21.0-32.0); Chloride 108 mmol/L (98-107); Estimated GFR (African America >60 (>=60 mL/min/1.73m^2); Estimated GFR (Non-African Ame >60 (>=60 mL/min/1.73m^2); Globulin 3.1 g/dL; Glucose 142 mg/dL (74-106); Potassium 4.1 mmol/L (3.5-5.1); Sodium 143 mmol/L (136-145); Total Protein 6.8 g/dL (6.4-8.2)
[2025-03-13 20:23] LABS: NT Pro B Type Natriuretic Pept 101.0 pg/mL (<=900.0)
[2025-03-13] MEDS: LABETALOL HCL 20 MG/4 ML SYRINGE 40 MG IVP (21:00)
== END 2025-03-13 21:51 | disposition home or self-care (01) ==
PROVIDERS: Physician Assistant; Emergency Provider Emergency Medicine; PCP Family Medicine
DX: J45.901 Unspecified asthma with (acute) exacerbation (principal); I10 Essential (primary) hypertension; R06.02 Shortness of breath
CPT/HCPCS: 36415; 71045; 80053; 83880; 84484; 85025; 85610; 85730; 93005; 96374; 96375; 96376; 99285; J1920; J2919